=== PATIENT | female | born 1990 | race Caucasian/White ===

== ENCOUNTER → 2018-03-19 10:56 | Outpatient (CLI) | payer BC, SELFPAY ==
[2018-03-19 12:46] LABS: hCG Titer Quant., Serum 242 mIU/mL (<9 non-preg)
== END ==
PROVIDERS: Visit Provider Obstetrics & Gynecology
DX: N91.2 Amenorrhea, unspecified (principal)
CPT/HCPCS: 36415; 84702

== ENCOUNTER → 2018-03-24 11:06 | Outpatient (CLI) | payer BC, SELFPAY ==
[2018-03-24 12:49] LABS: hCG Titer Quant., Serum 1702 mIU/mL (<9 non-preg)
[2018-03-24 12:51] LABS: Free T3 3.3 pg/mL (2.18-3.98); T4 Free Direct 0.95 ng/dL (0.76-1.46); Thyroid Stim Hormone (TSH) 0.53 uIU/mL (0.358-3.74)
== END ==
PROVIDERS: Obstetrics & Gynecology; Visit Provider Nurse Practitioner Adult Health
DX: E03.8 Other specified hypothyroidism (principal); E04.1 Nontoxic single thyroid nodule; N91.2 Amenorrhea, unspecified
CPT/HCPCS: 36415; 84439; 84443; 84481; 84702

== ENCOUNTER → 2018-04-14 16:20 | Outpatient (CLI) | payer BC, SELFPAY ==
[2018-04-18 15:51] LABS: HPV Reflexed? NOT INDICATED
== END ==
PROVIDERS: Visit Provider Obstetrics & Gynecology
DX: Z34.90 Encounter for supervision of normal pregnancy, unspecified, unspecified trimester (principal); Z12.4 Encounter for screening for malignant neoplasm of cervix
CPT/HCPCS: 88175; G0145

== ENCOUNTER → 2018-04-14 18:06 | Outpatient (CLI) | payer BC, SELFPAY ==
[2018-04-14 23:53] LABS: Chlamydia Trachomatis by PCR Negative (Negative); Neisserai gonorrhoeae by PCR Negative (Negative); Probe Check PASS; Sample Adequacy Control PASS; Specimen Processing Control PASS
== END ==
PROVIDERS: Visit Provider Obstetrics & Gynecology
DX: Z34.90 Encounter for supervision of normal pregnancy, unspecified, unspecified trimester (principal); Z12.4 Encounter for screening for malignant neoplasm of cervix
CPT/HCPCS: 87086; 87088; 87491; 87591; 88175; G0145

== ENCOUNTER → 2018-04-29 09:28 | Outpatient (CLI) | payer BC, SELFPAY ==
[2018-04-29 10:15] LABS: Basophil# 0.01 X10^3/uL; Basophil% 0.1 % (0-1); Eosinophil# 0.17 X10^3/uL; Eosinophils% 2.3 % (0-5); Hematocrit 37.9 % (37-47); Hemoglobin 13.1 g/dl (12.0-15.0); Lymphocyte % 26.7 % (19-41); Mean Corp Hgb Conc 34.6 g/gl (32-36); Mean Corpuscular Hgb 30.6 pg (27.0-32.0); Mean Corpuscular Volume 88.6 fL (81-99); Mean Platelet Vol. 9.3 fl (6.2-12.0); Monocyte# 0.25 X10^3/uL; Monocyte% 3.3 % (0-10); Neutrophil # 5.03 X10^3/uL (2.7-7.7); Neutrophil % 67.3 % (47-70); Platelet Count 247 K/mm3 (150-450); RBC Distribution Width CV 13.2 % (11.6-14.6); RBC Distribution Width SD 42.1 fl (35.1-43.9); Red Blood Count 4.28 M/mm3 (4.2-5.4); White Blood Count 7.5 K/mm3 (4.4-11.0)
[2018-04-29 10:16] LABS: POSITIVE COUNT NO; POSITIVE DIFFERENTIAL NO; POSITIVE MORPHOLOGY NO
[2018-04-30 08:16] LABS: HEPATITIS B SURFACE AG Negative (Negative)
[2018-04-30 09:39] LABS: HIV - WCH Non-Reactive (Nonreactive); Rubella IgG 35.4 IU/mL
[2018-05-02 00:18] LABS: Rapid Plasmin Reagin (RPR) NONREACTIVE (NONREACTIVE)
== END ==
PROVIDERS: Visit Provider Obstetrics & Gynecology
DX: Z34.90 Encounter for supervision of normal pregnancy, unspecified, unspecified trimester (principal)
CPT/HCPCS: 36415; 85025; 86592; 86703; 86762; 86850; 86900; 87340

== ENCOUNTER → 2018-08-04 16:52 | Outpatient (CLI) | payer BC, SELFPAY ==
[2018-08-04 17:41] LABS: T4 Free Direct 0.81 ng/dL (0.76-1.46); Thyroid Stim Hormone (TSH) 0.86 uIU/mL (0.358-3.74)
== END ==
PROVIDERS: Referring Provider Obstetrics & Gynecology; Visit Provider Obstetrics & Gynecology
DX: E03.9 Hypothyroidism, unspecified (principal)
CPT/HCPCS: 36415; 84439; 84443

== ENCOUNTER → 2018-09-01 16:00 | Outpatient (CLI) | payer BC, SELFPAY ==
[2018-09-01 16:27] LABS: Absolute Lymphocyte Count 2.03 X10^3/ul (0.83-4.51); Absolute Neutrophil Count 7.3 X10^3/uL (2.0-7.7); Basophil# 0.01 X10^3/uL; Basophil% 0.1 % (0-1); Eosinophil# 0.11 X10^3/uL; Eosinophils% 1.1 % (0-5); Hemoglobin 11.5 g/dl (12.0-15.0); Lymphocyte # 2.03 X10^3/ul (4.0); Lymphocyte % 20.2 % (19-41); Mean Corp Hgb Conc 32.9 g/gl (32-36); Mean Corpuscular Hgb 30.3 pg (27.0-32.0); Mean Corpuscular Volume 92.3 fL (81-99); Mean Platelet Vol. 9.3 fl (6.2-12.0); Neutrophil # 7.33 X10^3/uL (2.7-7.7); Neutrophil % 73.1 % (47-70); Platelet Count 201 K/mm3 (150-450); RBC Distribution Width CV 14.3 % (11.6-14.6); RBC Distribution Width SD 46.7 fl (35.1-43.9); Red Blood Count 3.79 M/mm3 (4.2-5.4)
[2018-09-01 16:29] LABS: POSITIVE COUNT NO; POSITIVE DIFFERENTIAL NO; POSITIVE MORPHOLOGY NO
[2018-09-01 16:55] LABS: Glucose Challenge Gest 1H 50g 108 mg/dL (70-140)
== END ==
PROVIDERS: Referring Provider Obstetrics & Gynecology; Visit Provider Obstetrics & Gynecology
DX: Z34.90 Encounter for supervision of normal pregnancy, unspecified, unspecified trimester (principal)
CPT/HCPCS: 36415; 82950; 85025

== ENCOUNTER → 2018-09-11 14:09 | Outpatient (CLI) | payer BC, SELFPAY ==
[2018-09-11 12:35] VITALS: BMI 39.4
[2018-09-11 16:02] LABS: Mucous, Urine 0 SEEN /hpf (<or=2+); Red Blood Cells-Urine 0 SEEN /hpf (0-5)
[2018-09-11 16:53] LABS: Color, Urine Yellow (Yellow); Glucose, Dipstick Normal (Normal); Ketone-Dipstick Negative (Negative); Leukocyte Esterase-Dipstick 25 /ul (Negative); Nitrite-Dipstick Negative (Negative); Occult Blood-Urine Negative /ul (Negative); Protein-Dipstick Negative (Negative); Urine Bilirubin Dipstick Negative (Negative); Urine Clarity Sl. Cloudy (Clear); Urine Urobilinogen Normal (Normal)
[2018-09-11 17:01] LABS: Bacteria 1+ /hpf (None Seen); Squamous Epithelial Cells - UA 0-5 SEEN /hpf (5-10); White Blood Cells 0-5 SEEN /hpf (0-5)
--- OUTSIDE RECORDS SUMMARY | 2018-10-28 11:19 | XMS RPT_ITS ---
:1990 Author Organization [place] Support Name Relationship Address Phone [facility] Unavailable [address] + [place] [address] CHANA BOLAÑOS Unavailable [address] + [place] [address] [facility] Unavailable [address] + [place] [address] CHANA BOLAÑOS Unavailable [address] + [facility] [address] [facility] Unavailable [address] + [place] [address] MAMI EDSAVITA Unavailable [address] + [place] [address] [facility] Unavailable [address] + [place] [address] MAMI EDWARD Unavailable [address] + [place] [address] [facility] Unavailable [address] + [place] [address] MAMI EDSAVITA Unavailable [address] + [place] [address] [facility] Unavailable [address] + [place] [address] MAMI EDSAVITA Unavailable [address] + [place] [address] [facility] Unavailable [address] + [place] [address] CHANA BOLAÑOS Unavailable [address] + [place] [address] [facility] Unavailable [address] + [place] [address] MAMI EDWARD Unavailable [address] + [place] [address] [facility] Unavailable [address] + [place] [address] MAMI EDWARD Unavailable [address] + [place] [address] [facility] Unavailable [address] + [place] [address] MAMI EDSAVITA Unavailable [address] + [place] [address] [facility] Unavailable [address] + [place] [address] CHANA BOLAÑOS Unavailable [address] + [place] [address] [facility] Unavailable [address] + [place] [address] MAMI, EDSAVITA Unavailable [address] + [place] [address] [facility] Unavailable [address] + [place] [address] CHANA BOLAÑOS Unavailable [address] + [place] [address] [facility] Unavailable [address] + [place] [address] MAMI EDSAVITA Unavailable [address] + [place] [address] YADIRA BOLAÑOS Unavailable [address] + [place] [address] MAMI EDSAVITA Unavailable [address] + [place] [address] [facility] Unavailable [address] + [place] [address] MAMI EDSAVITA Unavailable [address] + [place] [address] YADIRA BOLAÑOS Unavailable [address] + [place] [address] CHANA BOLAÑOS Unavailable [address] + [place] [address] [facility] Unavailable [address] + [place] [address] MAMI EDSAVITA Unavailable [address] + [place] [address] [facility] Unavailable [address] + [place] [address] CHANA BOLAÑOS Unavailable [address] + [place] [address] [facility] Unavailable [address] + [place] [address] CHANA BOLAÑOS Unavailable [address] + [place] [address] [facility] Unavailable [address] + [place] [address] MAMI EDSAVITA Unavailable [address] + [place] [address] [facility] Unavailable [address] + [place] [address] CHANA BOLAÑOS Unavailable [address] + [place] [address] [facility] Unavailable [address] + [place] [address] MAMI EDSAVITA Unavailable [address] + [place] [address] [facility] Unavailable [address] + [place] [address] MAMI EDSAVITA Unavailable [address] + [place] [address] [facility] Unavailable [address] + [place] [address] MAMI EDSAVITA Unavailable [address] + [place] [address] [facility] Unavailable [address] + [place] [address] CHANA BOLAÑOS Unavailable [address] + [place] [address] Care Team Providers Name Role Phone Junior Davis Attending Unavailable Primay Care Physicia, No Referring Unavailable Junior Davis Attending Unavailable Junior Davis Referring Unavailable Primay Care Physicia, No Primary Care Unavailable Adan Rolle Attending Unavailable Primay Care Physicia, No Primary Care Unavailable EnsenadaBillie Attending Unavailable Primay Care Physicia, No Referring Unavailable Dossie, Janett Simon Attending Unavailable Primay Care Physicia, No Referring Unavailable Dossie, Janett Simon Attending Unavailable Primay Care Physicia, No Referring Unavailable Marcanthony, Mary Attending Unavailable Primay Care Physicia, No Referring Unavailable Dossie, Janett Simon Attending Unavailable Primay Care Physicia, No Referring Unavailable MarcanthonyMary Attending Unavailable Primay Care Physicia, No Primary Care Unavailable Ruth Dejesus Attending Unavailable Primay Care Physicia, No Primary Care Unavailable Dejesus Ruth Referring Unavailable MarcanthonyMary Consulting Unavailable Marcanthony, Mary Attending Unavailable Primay Care Physicia, No Referring Unavailable Primay Care Physicia, No Primary Care Unavailable MarcanthonyMary Attending Unavailable Primay Care Physicia, No Primary Care Unavailable Marcanthony, Mary Attending Unavailable Primay Care Physicia, No Primary Care Unavailable MarcanthonyMary Referring Unavailable EnsenadaBillie Attending Unavailable Primay Care Physicia, No Referring Unavailable Primay Care Physicia, No Primary Care Unavailable Marcanthony, Mary Attending Unavailable Marcanthony, Mary Referring Unavailable Primay Care Physicia, No Primary Care Unavailable Marcanthony, Mary Attending Unavailable Primay Care Physicia, No Referring Unavailable Primay Care Physicia, No Primary Care Unavailable Marcanthony, Mary Attending Unavailable Primay Care Physicia, No Referring Unavailable Primay Care Physicia, No Primary Care Unavailable Marcanthony, Mary Attending Unavailable Primay Care Physicia, No Referring Unavailable Marcanthony, Mary Attending Unavailable Primay Care Physicia, No Referring Unavailable Marcanthony, Mary Attending Unavailable Marcanthony, Mary Referring Unavailable Primay Care Physicia, No Primary Care Unavailable Marcanthony, Mary Attending Unavailable Primay Care Physicia, No Referring Unavailable Marcanthony, Mary Attending Unavailable Marcanthony, Mary Attending Unavailable Marcanthony, Mary Referring Unavailable Primay Care Physicia, No Primary Care Unavailable Dossie, Janett DOmarCOmar Attending Unavailable Primay Care Physicia, No Referring Unavailable ANTONIO JIMENEZ Attending Unavailable MARY BLACKBURN Referring Unavailable NO PRIMARY CARE, Primary Care Unavailable YAMILETH PARIKH Attending Unavailable ALEXEY, MARY E Referring Unavailable NO PRIMARY CARE, Primary Care Unavailable GISELLA, WW-WENDY L Attending Unavailable GISELLA, WW-WENDY L Attending Unavailable KAPUT, SARAH M Consulting Unavailable KAPUT, SARAH Driver Attending Unavailable PROBLEMS PROBLEMS DATE TYPE CONDITION / CODE ATTENDING STATUS SOURCE 10/21/2018 Unknown M99.03 - Segmental Dossie, Janett Active [facility] dysfunction of [facility] lumbar region / Repository M99.03(ICD-10) 10/21/2018 Unknown M99.02 - Segmental Dossie, Janett Active [facility] of [facility] thoracic region / Repository M99.02(ICD-10) 10/21/2018 Unknown M99.04 - Segmental Dossie, Janett Active [facility] dysfunction of Hospital sacral region / Repository M99.04(ICD-10) 10/21/2018 Unknown M99.05 - Segmental Dossie, Janett Active [facility] dysfunction of [facility] pelvic region / Repository M99.05(ICD-10) 10/13/2018 Unknown Z34.83 - Encounter Marcanthony, Active [facility] for supervision of [facility] other normal Hospital , third Repository trimester / Z34.83(ICD-10) 10/13/2018 Unknown O09.899 - Marcanthony, Active [facility] Supervision of [facility] other high risk Hospital pregnancies, Repository unspecified trimester / O09.899(ICD-10) 10/13/2018 Unknown E03.9 - Marcanthony, Active [facility] Hypothyroidism, [facility] unspecified / Hospital E03.9(ICD-10) Repository 10/13/2018 Unknown O99.343 - Other Marcanthony, Active [facility] mental disorders [facility] complicating Hospital , third Repository trimester / O99.343(ICD-10) 10/13/2018 Unknown F32.9 - Major Marcanthony, Active [facility] depressive [facility] disorder, single Hospital episode, Repository unspecified / F32.9(ICD-10) 10/13/2018 Unknown Z3A.34 - 34 weeks Marcanthony, Active [facility] gestation of [facility] / Hospital Z3A.34(ICD-10) Repository 09/29/2018 Unknown Z3A.28 - 28 weeks Billie Canales Active [facility] gestation of [facility] / Hospital Z3A.28(ICD-10) Repository 09/11/2018 Unknown R30.0 - Dysuria / GarryJunior mercer Active [facility] R30.0(ICD-10) [facility] Repository 09/11/2018 Unknown R52 - Pain, Junior Davis Active [facility] unspecified / Community R52(ICD-10) Hospital Repository 09/01/2018 Unknown Z34.90 - Encounter Marcanthony, Active [facility] for supervision of [facility] normal , Hospital unspecified, Repository unspecified trimester / Z34.90(ICD-10) 09/01/2018 Unknown Z23 - Encounter Marcanthony, Active [facility] for immunization / [facility] Z23(ICD-10) Hospital Repository 08/04/2018 Unknown Z34.82 - Encounter Marcanthony, Active [facility] for supervision of [facility] other normal Hospital , second Repository trimester / Z34.82(ICD-10) 08/04/2018 Unknown Z3A.24 - 24 weeks Marcanthony, Active [facility] gestation of [facility] / Hospital Z3A.24(ICD-10) Repository 07/07/2018 Unknown Z3A.16 - 16 weeks Marcanthony, Active [facility] gestation of [facility] / Hospital Z3A.16(ICD-10) Repository 04/16/2018 Unknown Z12.4 - Encounter Marcanthony, Active [facility] for screening for [facility] malignant neoplasm Hospital of cervix / Repository Z12.4(ICD-10) 04/15/2018 Unknown Z34.00 - Encounter Marcanthony, Active [facility] for supervision of [facility] normal first Hospital , Repository unspecified trimester / Z34.00(ICD-10) 02/06/2018 Admitting Unknown / GISELLA, Active [facility] diagnosis UNK(Unknown) WW-WENDY [facility] Repository PROCEDURES PROCEDURES No Procedure Records FoundRESULTS RESULTS CHIROPRACTIC REPORT Observed: 10/22/2018 Status: F Source: [place] 11:45 AM [facility] REPOSITORY [facility] [address] [place] [address] OFFICE VISIT Date of Service: 10/22/18 MR#: [id number] Acct: [id number] Name: YADIRA BOLAÑOS Rep #: [id number] : 1990 Provider: Janett Brenner D.C. Age/Sex: 28/F [place] [facility] [place] Signed Intake Vital Signs10/22/18 Body Mass Index (BMI) 39.4 10/22/18 Height 5 ft 4 in 10/22/18 Weight: 230 lb 10/22/18 Body Mass Index (BMI) 39.4 Intake Visit Reasons: LBP and breech Chief Complaint: est ob Is patient in pain?: Yes Allergies No Known Allergies Allergy (Verified 10/13/18 15:34) Medications Vit No.130/Iron/Folic [ Vitamins] 1 tab PO DAILY 09/29/15 [History Confirmed 10/13/18] levothyroxine 25 mcg tablet 50 mcg PO DAILY tab 09/04/17 [History Confirmed 10/13/18] Thyroid,Pork [[place] Thyroid] 30 mg PO DAILY 09/07/17 [History Confirmed 10/13/18] sertraline 100 mg tablet 150 mg PO QDAY #135 tab 09/01/18 [Rx Confirmed 10/13/18] PFSH Medical History Back pain (Acute) Chest pain (Acute) Fatigue (Acute) Hypothyroid (Acute) Incontinence (Acute) Post depression (Acute) Severe headache (Acute) Family History Grandfather Diabetes Father Hypertension Social History number of children: 2 current occupational status: employed current occupation: [employer] Smoking Status: Never smoker alcohol intake: never substance use type: does not use caffeine: Yes Type: tea, coffee what type of physical activity do you participate in: none seatbelt use: always do you feel safe at home: Yes additional social history: Ed-Ayala HPI LBP and breech: Chief Complaint: Mid back pain and breech Visit Number: 5 Details: YADIRA BOLAÑOS is a 28 year old F who presents with no mid back pain, she is currently 36 weeks . Yadira states that after her last treatment she has not been experiencing any mid back pain. She also feels as if baby is lower, and her posture has changed. Today Yadira states that she has no pain, although she feels baby has moved. Yadira denies any numbness, tingling, or radiculopathy. Location: mid back and breech Duration: intermittent Aggravating or associated factors: lifting Relieving factors: chiro Pain Quality: aching, dull Exam Musc General: Yes normal posture (), normal gait, joint tenderness (T6,T7,T8) and decreased ROM Thoracic/Lumbar Spine: thoracic and lumbar spine normal to inspection, straight leg raise negative bilaterally, Lasegue's sign negative, pain with thoraco- lumbar ROM, paraspinal tenderness (slightly improved), thoraco-lumbar ROM limited, thoraco-lumbar spasm Sacroiliac joints: on the right (motion restriction) Sacrum: tenderness (decreased motion restriction) on the left Office Procedures Chiropractic Treatments Procedures Manipulation: 3-4 regions (T6, L4, L sacrum, RIL) Assessment AND Plan Problems 1. Segmental and somatic dysfunction of pelvic region M99.05 2. Segmental and somatic dysfunction of sacral region M99.04 3. Segmental and somatic dysfunction of lumbar region M99.03 4. Segmental and somatic dysfunction of thoracic region M99.02 Plan Patient is showing improvement, continue care. Orders Orders: Plan Detail Goals Decrease pain and spasm Improve ROM Level pelvis Follow Up 2x/wk Coding Level of Care Code No Charge Diagnoses Segmental and somatic dysfunction of pelvic region M99.05 Segmental and somatic dysfunction of sacral region M99.04 Segmental and somatic dysfunction of lumbar region M99.03 Segmental and somatic dysfunction of thoracic region M99.02 Additional Codes Procedures - Manipulation: 3-4 regions (18837) 10/22/18 4135 <Electronically signed by Jnaett Brenner D.C.> Date Janett Sandhu Signature: Date (if applicable) CC: CHIROPRACTIC REPORT Observed: 10/20/2018 Status: F Source: [place] 10:23 AM [facility] REPOSITORY [facility] [address] [place] [address] OFFICE VISIT Date of Service: 10/20/18 MR#: [id number] Acct: [id number] Name: YADIRA BOLAÑOS Rep #: [id number] : 1990 Provider: Janett Brenner D.C. Age/Sex: 28/F [place] [facility]: Signed Intake Vital Signs10/20/18 Height 5 ft 4 in 10/20/18 Weight: 230 lb 10/20/18 Body Mass Index (BMI) 39.4 Intake Visit Reasons: back pain Chief Complaint: mid back and breach baby Is patient in pain?: Yes Allergies No Known Allergies Allergy (Verified 10/13/18 15:34) Medications Vit No.130/Iron/Folic [ Vitamins] 1 tab PO DAILY 09/29/15 [History Confirmed 10/13/18] levothyroxine 25 mcg tablet 50 mcg PO DAILY tab 09/04/17 [History Confirmed 10/13/18] Thyroid,Pork [[place] Thyroid] 30 mg PO DAILY 09/07/17 [History Confirmed 10/13/18] sertraline 100 mg tablet 150 mg PO QDAY #135 tab 09/01/18 [Rx Confirmed 10/13/18] [facility] Medical History Back pain (Acute) Chest pain (Acute) Fatigue (Acute) Hypothyroid (Acute) Incontinence (Acute) Post depression (Acute) Severe headache (Acute) Family History Grandfather Diabetes Father Hypertension Social History number of children: 2 current occupational status: employed current occupation: [employer] Smoking Status: Never smoker alcohol intake: never substance use type: does not use caffeine: Yes Type: tea, coffee what type of physical activity do you participate in: none seatbelt use: always do you feel safe at home: Yes additional social history: Ed-Ayala HPI back pain : Chief Complaint: mid back pain and breech baby Visit Number: 4 Details: YADIRA BOLAÑOS is a 28 year old F who presents with decreased mid back pain. She states now baby is breech, she is currently 35 weeks . Yadira states that after each treatment her mid back pain is relieved, although by the end of the week the pain does increase, leaving her with a tight and sore ache that is localized in the mid back. Today Yadira states that her mid back is a little stiff, although one week ago she was told baby is breech. Location: mid back and breech baby Duration: intermittent Aggravating or associated factors: lifting baby, rotation, and bending Relieving factors: chiro Pain Quality: aching, dull, cramping, sharp Exam Musc General: Yes normal posture (), normal gait, joint tenderness (T6,T7,T8) and decreased ROM Thoracic/Lumbar Spine: thoracic and lumbar spine normal to inspection, straight leg raise negative bilaterally, Lasegue's sign negative, pain with thoraco- lumbar ROM, paraspinal tenderness (slightly improved), thoraco-lumbar ROM limited, thoraco-lumbar spasm Sacroiliac joints: on the right (motion restriction) Sacrum: tenderness (decreased motion restriction) on the left Office Procedures Chiropractic Treatments Procedures Manipulation: 3-4 regions (T7,T8, L sacrum, R pelvis ) Assessment AND Plan Problems 1. Segmental and somatic dysfunction of thoracic region M99.02 2. Segmental and somatic dysfunction of sacral region M99.04 3. Segmental and somatic dysfunction of pelvic region M99.05 Plan Began Schuler technique and evaluated lumbopelvic area. Recommend acute treatment at 2x/wk/2wks. Follow up with OB for eval/US in 2 weeks. Orders Orders: Plan Detail Goals Decrease pain and spasm Improve ROM Level pelvis Follow Up 2x/wk/2wks Coding Level of Care Code Off vis,est,level 1 Diagnoses Segmental and somatic dysfunction of thoracic region M99.02 Segmental and somatic dysfunction of sacral region M99.04 Segmental and somatic dysfunction of pelvic region M99.05 Additional Codes Procedures - Manipulation: 3-4 regions (57726) 10/20/18 1023 <Electronically signed by Janett Brenner D.C.> Date Janett Brenner D.C. Cosigner Signature: Date (if applicable) CC: TOP TAPER MACHINE OFFICE VISIT Observed: 10/13/2018 Status: F Source: [facility] RE[facility] 3:59 PM [facility] REPOSITORY [facility] 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 Is patient in pain?: No Allergies No Known Allergies Allergy (Verified 10/13/18 15:34) Medications Vit No.130/Iron/Folic [ Vitamins] 1 tab PO DAILY 09/29/15 [History Confirmed 10/13/18] levothyroxine 25 mcg tablet 50 mcg PO DAILY tab 09/04/17 [History Confirmed 10/13/18] Thyroid,Pork [[place] Thyroid] 30 mg PO DAILY 09/07/17 [History Confirmed 10/13/18] sertraline 100 mg tablet 150 mg PO QDAY #135 tab 09/01/18 [Rx Confirmed 10/13/18] Last Menstral Period: 12/08/16 Zika: Zika virus screening: Negative : No PFSH PFSH Medical History Back pain (Acute) Chest pain (Acute) Fatigue (Acute) Hypothyroid (Acute) Incontinence (Acute) Post depression (Acute) Severe headache (Acute) Family History Grandfather Diabetes Father Hypertension Social History number of children: 2 current occupational status: employed current occupation: [employer] Smoking Status: Never smoker alcohol intake: never substance use type: does not use caffeine: Yes Type: tea, coffee what type of physical activity do you participate in: none seatbelt use: always do you feel safe at home: Yes additional social history: Ed-Ayala Pregancy History 3 Elective abortions Hx Para 2 Spontaneous abortions Past Pregnancies Del. DateName GA/Weeks Outcome Route Bth WeighInfant GeLabor LgtAnesthesiDel LocatProvider FOB t n h a n HPI 34 WEEK OB: Details: YADIRA BOLAÑOS is a 28 year old who presents for routine OB visit. OB Visit NAV Calculator Estimated Delivery Date 11/24/18 Based on Ultrasound Date 04/14/18 Current WG 34w 0d Number 1 Expected Delivery Route/Plan Specific Issue/Plans flu vaccine: given tdap vaccine: given rhogam: na LARC form signed: [] labor support person: [] pain management: [] cut cord/dad catch: [] : [] PP control planned: [] discussed possible routes of delivery and associated risks: [] special requests: [] Initial Weight: 213 lb Date Weight BP Urine PrFHR FuHt Pres MoCTX DilationFetal StVisit NoProviderComments E ot v te GA G Effac lucose ed Visit Notes Visit Date: 10/13/18 no vb lof good fm nor egualr ctx, seeing psychiatrist to have better control of mood Mary Blackburn MD on 10/13/18 Visit Date: 09/29/18 No VB, LOF. Depression still problematice Billie Canales NP-C on 09/29/18 Visit Date: 09/01/18 no vb lof good fm no regualr ctx some increased anxiety. will increase zoloft and starting back with counseling Mary Blackburn MD on 09/01/18 Visit Date: 08/04/18 co mid back pain. no vb lof good fm n oregular ctx Mary Blackburn MD on 08/04/18 Visit Date: 07/07/18 no vb lof cramping Mary Blackburn MD on 07/07/18 Visit Date: 06/09/18 no vb cramping nausea resolved, some stress at work- overall mood stable. encouraged counseling Mary Blackburn MD on 06/09/18 Visit Date: 05/12/18 no vb cramping nasea improved Mary Blackburn MD on 05/12/18 Visit Date: 04/29/18 Confirmed FHT with brief US. Nausea problematic. No VB, LOF. EDITH Sewell on 04/29/18 ACOG First Trimester First Trimester: Desire for , Alcohol, Tobacco Cessation, Illicit/Recreational Drug/Substance Use, Intimate Partner Violence, Barriers to care, Unstable Housing, Communication Barriers, Environmental/Work Hazards, Anticipated Course of Care, Toxoplasmosis Precations, Use of Any medications, Sexual activity, Exercise, Dental Care, Sauna/Hot tub use, Seat Belt use, Childbirth classes/Hospital facilities, , Travel, Indications for US and Screening for Aneuploidy Diagnostics Diagnostics Labs Hct 36.6 % (37-47) L 09/13/18 Hgb 12.5 g/dl (12.0-15.0) 09/13/18 Glucose 1 Hr 50 gm 108 mg/dL (70-140) 09/01/18 Rhogam given: No 09/14/18 Details: HIV: Urine Culture: Sequential Screen: NIPT Screen: Assessment AND Plan Problems 1. Depression affecting in third trimester, antepartum O99.343; F32.9 h/o severe PPD, zoloft, counseled regarding risks of medication, counseling encouraged and patient planning to follow up again, has done PHP in past 2. Acquired hypothyroidism E03.9 labs q trimester 3. 34 weeks gestation of Z3A.34 genetic, carrier, and NTD screening declined. anatomy screen normal- fu views of spine were normal. 4. Short interval between pregnancies affecting , antepartum O09.899 5. Encounter for supervision of other normal in third trimester Z34.83 PRR NAV 11/24/18 gender surprise PC PatriciaBarry curiel Ed Plan ACOG trimester education reviewed and updated. see problem list details for updated plan management information and see below for orders placed at this visit. GA appropriate handout given. Orders Orders: Plan Detail Goals Decrease pain and spasm Improve ROM Coding Level of Care Code OB Routine Diagnoses Depression affecting in third trimester, antepartum O99.343; F32.9 Acquired hypothyroidism E03.9 Hypothyroidism type: acquired 34 weeks gestation of Z3A.34 Weeks of gestation: 34 weeks Short interval between pregnancies affecting , antepartum O09.899 Encounter for supervision of other normal in third trimester Z34.83 Normal : other normal Trimester: third trimester 10/13/18 1559 <Electronically signed by Mary Blackburn MD> Date Mary Blackburn MD Cosign Signature: Date (if applicable) CC: CHIROPRACTIC REPORT Observed: 10/13/2018 Status: F Source: [place] 3:29 PM [facility] REPOSITORY [facility] [address] [place] [address] OFFICE VISIT Date of Service: 10/13/18 MR#: [id number] Acct: [id number] Name: YADIRA BOLAÑOS Rep #: [id number] : 1990 Provider: Janett Brenner D.C. Age/Sex: 28/F [place] [facility] [place] Signed Intake Vital Signs10/13/18 Body Mass Index (BMI) 38.9 10/13/18 Height 5 ft 4 in 10/13/18 Weight: 231 lb 10/13/18 Body Mass Index (BMI) 39.6 Intake Visit Reasons: back johann n Chief Complaint: R mid back pain Is patient in pain?: Yes Allergies No Known Allergies Allergy (Verified 09/29/18 08:35) Medications Vit No.130/Iron/Folic [ Vitamins] 1 tab PO DAILY 09/29/15 [History Confirmed 09/29/18] levothyroxine 25 mcg tablet 50 mcg PO DAILY tab 09/04/17 [History Confirmed 09/29/18] Thyroid,Pork [[place] Thyroid] 30 mg PO DAILY 09/07/17 [History Confirmed 09/29/18] sertraline 100 mg tablet 150 mg PO QDAY #135 tab 09/01/18 [Rx Confirmed 09/29/18] [facility] Medical History Back pain (Acute) Chest pain (Acute) Fatigue (Acute) Hypothyroid (Acute) Incontinence (Acute) Post depression (Acute) Severe headache (Acute) Family History Grandfather Diabetes Father Hypertension Social History number of children: 2 current occupational status: employed current occupation: [employer] Smoking Status: Never smoker alcohol intake: never substance use type: does not use caffeine: Yes Type: tea, coffee what type of physical activity do you participate in: none seatbelt use: always do you feel safe at home: Yes additional social history: Ed-Ayala HPI back johann n: Chief Complaint: R sided mid back pain Visit Number: 2 Details: YADIRA BOLAÑOS is a 28 year old F who is currently 34 weeks , and presents with decreased R sided mid back pain. She states that after her adjustment her pain was decreased for a few days, although later returned. Today Yadira rates her pain a 3/10 and describes it as a deep and sore ache that is localized to the R mid back. Rotation, leaning, and lifting causes increased pain. Yadira denies any numbness, tingling, or radiculopathy. Location: R mid back pain Duration: intermittent Aggravating or associated factors: rotation, lifting, and twisting Relieving factors: chiro Pain Quality: aching, dull, cramping Exam Musc General: Yes normal posture (), normal gait, joint tenderness (T6,T7,T8) and decreased ROM Thoracic/Lumbar Spine: thoracic and lumbar spine normal to inspection, straight leg raise negative bilaterally, Lasegue's sign negative, pain with thoraco- lumbar ROM, paraspinal tenderness (slightly improved) on the right in the mid thoracic and in the lower thoracic, thoraco-lumbar ROM limited, thoraco-lumbar spasm Office Procedures Chiropractic Treatments Procedures Manipulation: 1-2 regions (T6,T7,T8) Assessment AND Plan 1. Segmental and somatic dysfunction of thoracic region M99.02 Orders Orders: Plan Detail Other Orders Orders: Additional Comments Continue care. Goals Decrease pain and spasm Improve ROM Follow Up 2 Weeks Coding Level of Care Code No Charge Diagnoses Segmental and somatic dysfunction of thoracic region M99.02 Additional Codes Procedures - Manipulation: 1-2 regions (40224) 10/13/18 1529 <Electronically signed by Janett Brenner D.C.> Date Janett Sandhu Signature: Date (if applicable) CC: CHIROPRACTIC REPORT Observed: 10/07/2018 Status: F Source: [place] 10:05 AM [facility] [address] [place] [address] OFFICE VISIT Date of Service: 10/06/18 MR#: [id number] Acct: [id number] Name: YADIRA BOLAÑOS Rep #: [id number] : 1990 Provider: Janett Brenner D.C. Age/Sex: 28/F [place] [facility] [place] Signed Intake Vital Signs10/06/18 Height 5 ft 4 in 10/06/18 Weight: 230 lb 10/06/18 Body Mass Index (BMI) 39.4 Intake Visit Reasons: back pain Chief Complaint: R sided mid back pain Is patient in pain?: Yes Allergies No Known Allergies Allergy (Verified 09/29/18 08:35) Medications Vit No.130/Iron/Folic [ Vitamins] 1 tab PO DAILY 09/29/15 [History Confirmed 09/29/18] levothyroxine 25 mcg tablet 50 mcg PO DAILY tab 09/04/17 [History Confirmed 09/29/18] Thyroid,Pork [[place] Thyroid] 30 mg PO DAILY 09/07/17 [History Confirmed 09/29/18] sertraline 100 mg tablet 150 mg PO QDAY #135 tab 09/01/18 [Rx Confirmed 09/29/18] Patient : Yes [facility] Medical History Back pain (Acute) Chest pain (Acute) Fatigue (Acute) Hypothyroid (Acute) Incontinence (Acute) Post depression (Acute) Severe headache (Acute) Family History Grandfather Diabetes Father Hypertension Social History number of children: 2 current occupational status: employed current occupation: [employer] Smoking Status: Never smoker alcohol intake: never substance use type: does not use caffeine: Yes Type: tea, coffee what type of physical activity do you participate in: none seatbelt use: always do you feel safe at home: Yes additional social history: Ed-Ayala HPI back pain : Chief Complaint: R sided mid back pain Visit Number: 1 Referral source: Details: YADIRA BOLAÑOS is a 28 year old F who presents with R sided mid back pain, she is currently 33 weeks . 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 The pain was initially described as a sharp ache that began in the R mid back, and would radiate down the back. At times with sudden quick movements the pain will radiate into the front of the rib cage. Today Yadira rates her pain a 3/10 and describes it as a dull ache. Rotation, bending over, and lifting causes the pain to increase, becoming sharp shooting. Yadira denies any numbness, tingling, or radiculopathy. Onset: 09/15/18 Location: R mid back pain Duration: intermittent Aggravating or associated factors: bending, lifting, twisting Relieving factors: heat and sitting Pain Quality: aching, dull, sharp, radiating Exam Musc General: Yes normal posture (), normal gait, joint tenderness (T6,T7,T8) and decreased ROM Thoracic/Lumbar Spine: thoracic and lumbar spine normal to inspection, straight leg raise negative bilaterally, Lasegue's sign negative, pain with thoraco- lumbar ROM with rotation to the right, paraspinal tenderness on the right in the mid thoracic and in the lower thoracic, thoraco-lumbar ROM limited with rotation to the right, thoraco- lumbar spasm on the right greater than left (rhomboid) Neuro General: alert, awake, oriented x3, gait normal, normal light touch, pain and propioception, no focal motor deficits Ortho Test CERVICAL THORACIC Kemps: Positive, Rig Schepelmanns pain: Negative Pardo: Negative LUMBAR Office Procedures Chiropractic Treatments Procedures Manipulation: 1-2 regions (T6,T7,T8) Assessment AND Plan 1. Segmental and somatic dysfunction of thoracic region M99.02 Orders Orders: Plan Detail Other Orders Orders: Additional Comments Monitor patient response to treatment. Follow up in 1 week. Goals Decrease pain and spasm Improve ROM Follow Up 1 Week Coding Level of Care Code Off vis,new,level 3 Diagnoses Segmental and somatic dysfunction of thoracic region M99.02 Additional Codes Procedures - Manipulation: 1-2 regions (16035) 10/07/18 1005 <Electronically signed by Janett Brenner D.C.> Date Janett Brenner D.C. Cosigner Signature: Date (if applicable) CC: TOP TAPER MACHINE OFFICE VISIT Observed: 09/29/2018 Status: F Source: [place] REPORT 8:58 AM [facility] REPOSITORY [facility] [place] [address] [place] [address] OFFICE VISIT Date of Service: 09/29/18 MR#: [id number] Acct: [id number] Name: YADIRA BOLAÑOS Rep #: [id number] : 1990 Provider: TEODORA Canales Age/Sex: 28/F [place] [facility] [place]: Signed Intake Vital Signs09/29/18 Body Mass Index (BMI) 38.9 09/29/18 Height 5 ft 4 in 09/29/18 Weight: 227 lb 2 oz 09/29/18 Body Mass Index (BMI) 38.9 09/29/18 Blood Pressure 112/78 Intake Visit Reasons: 32 weeks Chief Complaint: Est OB Is patient in pain?: No Allergies No Known Allergies Allergy (Verified 09/29/18 08:35) Medications Vit No.130/Iron/Folic [ Vitamins] 1 tab PO DAILY 09/29/15 [History Confirmed 09/29/18] levothyroxine 25 mcg tablet 50 mcg PO DAILY tab 09/04/17 [History Confirmed 09/29/18] Thyroid,Pork [[place] Thyroid] 30 mg PO DAILY 09/07/17 [History Confirmed 09/29/18] sertraline 100 mg tablet 150 mg PO QDAY #135 tab 09/01/18 [Rx Confirmed 09/29/18] Last Menstral Period: 12/08/16 Zika: Zika virus screening: Negative : No PFSH PFSH Medical History Back pain (Acute) Chest pain (Acute) Fatigue (Acute) Hypothyroid (Acute) Incontinence (Acute) Post depression (Acute) Severe headache (Acute) Family History Grandfather Diabetes Father Hypertension Social History number of children: 2 current occupational status: employed current occupation: [employer] Smoking Status: Never smoker alcohol intake: never substance use type: does not use caffeine: Yes Type: tea, coffee what type of physical activity do you participate in: none seatbelt use: always do you feel safe at home: Yes additional social history: Ed-Ayala Pregancy History 3 Elective abortions Hx Para 2 Spontaneous abortions Past Pregnancies Del. DateName GA/Weeks Outcome Route Bth WeighInfant GeLabor LgtAnesthesiDel LocatProvider FOB t n h a n HPI 32 weeks: Details: YADIRA BOLAÑOS is a 28 year old who presents for routine OB visit. OB Visit NAV Calculator Estimated Delivery Date 11/24/18 Based on Ultrasound Date 04/14/18 Current WG 32w 0d Number 1 Expected Delivery Route/Plan Specific Issue/Plans flu vaccine: given tdap vaccine: given rhogam: na LARC form signed: [] labor support person: [] pain management: [] cut cord/dad catch: [] : [] PP control planned: [] discussed possible routes of delivery and associated risks: [] special requests: [] Initial Weight: 213 lb Date Weight BP Urine PrFHR FuHt Pres MoCTX DilationFetal StVisit NoProviderComments E ot v te GA G Effac lucose ed Visit Notes Visit Date: 09/29/18 No VB, LOF. Depression still problematice Billie Canales NP-C on 09/29/18 Visit Date: 09/01/18 no vb lof good fm no regualr ctx some increased anxiety. will increase zoloft and starting back with counseling Mary Blackburn MD on 09/01/18 Visit Date: 08/04/18 co mid back pain. no vb lof good fm n oregular ctx Mary Blackburn MD on 08/04/18 Visit Date: 07/07/18 no vb lof cramping Mary Blackburn MD on 07/07/18 Visit Date: 06/09/18 no vb cramping nausea resolved, some stress at work- overall mood stable. encouraged counseling Mary Blackburn MD on 06/09/18 Visit Date: 05/12/18 no vb cramping nasea improved Mary Blackburn MD on 05/12/18 Visit Date: 04/29/18 Confirmed FHT with brief US. Nausea problematic. No VB, LOF. MIKE SewellC on 04/29/18 ACOG First Trimester First Trimester: Desire for , Alcohol, Tobacco Cessation, Illicit/Recreational Drug/Substance Use, Intimate Partner Violence, Barriers to care, Unstable Housing, Communication Barriers, Environmental/Work Hazards, Anticipated Course of Care, Toxoplasmosis Precations, Use of Any medications, Sexual activity, Exercise, Dental Care, Sauna/Hot tub use, Seat Belt use, Childbirth classes/Hospital facilities, , Travel, Indications for US and Screening for Aneuploidy Diagnostics Diagnostics Labs Blood Type O POSITIVE 04/29/18 Antibody Screen NEGATIVE 04/29/18 Hct 36.6 % (37-47) L 09/13/18 Hgb 12.5 g/dl (12.0-15.0) 09/13/18 Rubella IgG Antibody 35.4 IU/mL 04/29/18 RPR NONREACTIVE (NONREACTIVE) 04/29/18 Hep Bs Antigen Negative (Negative) 04/29/18 Chlam trachomat DNA PCR Negative (Negative) 04/14/18 N.gonorrhoeae DNA (PCR) Negative (Negative) 04/14/18 Glucose 1 Hr 50 gm 108 mg/dL (70-140) 09/01/18 Rhogam given: No 09/14/18 Details: HIV: Urine Culture: Sequential Screen: NIPT Screen: Results [id number] Office Urine Glucose Negative Last Edit by Sandra Tao on 09/29/18 08:42 Office Urine Protein Negative Last Edit by Sandra Tao on 09/29/18 08:42 Assessment AND Plan Problems 1. Encounter for supervision of other normal in third trimester Z34.83 PRR NAV 11/24/18 Barry Infante Ed 2. 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 anatomy screen normal- fu views of spine were normal. 3. Short interval between pregnancies affecting , antepartum O09.899 4. Acquired hypothyroidism E03.9 labs q trimester 5. Depression affecting in third trimester, antepartum O99.343; F32.9 h/o severe PPD, zoloft, counseled regarding risks of medication, counseling encouraged and patient planning to follow up again, has done PHP in past Plan Orders placed: none She did see counseling center, has hotline number if suicidal ideation occurs. involved and supportive Has scheduled counseling 10/01/18 and psychiatrist in 2 weeks. Reviewed of labor precautions, movement/kick counts ACOG trimester education reviewed and updated See problem list details for updated plan of care Gestational age appropriate handout given RTO: 2 weeks Orders Orders: Coding Level of Care Code OB Routine Diagnoses Encounter for supervision of other normal in third trimester Z34.83 Normal : other normal Trimester: third trimester 28 weeks gestation of Z3A.28 Weeks of gestation: 28 weeks Short interval between pregnancies affecting , antepartum O09.899 Acquired hypothyroidism E03.9 Hypothyroidism type: acquired Depression affecting in third trimester, antepartum O99.343; F32.9 09/29/18 0858 <Electronically signed by Billie Canales VEGETABLE II FARMWORKER-C> Date Billie Canales VEGETABLE II FARMWORKER-C Cosigner Signature: Date (if applicable) CC: URINALYSIS, COMPLETE Collected: 09/13/2018 Status: F Source: [place] 9:20 PM [facility] REPOSITORY Order Comment: How was Urine Obtained? CLEAN CATCH TYPE CODE TESTS RESULT OUT OF REFERENCE UNITS RANGE LAB L400.3000 Yellow COLOR Normal Yellow LAB L400.3050 Clear CLARITY Normal Cloudy LAB L400.3200 Normal mg/dl GLUCOSE, UR Normal Normal LAB L400.3300 Negative mg/dL BILIRUBIN Normal URINE Negative LAB L400.3400 Negative mg/dl KETONE UR High 50 LAB L400.3465 1.002-1.030 SP.GR. Normal DIPSTX 1.010 LAB L400.3550 5.0 - 8.0 pH UR Normal 7.0 LAB L400.3600 Negative mg/dl PROT DIPSTX Normal Negative LAB L400.3700 Normal mg/dl UROBILI Normal Normal LAB L400.3750 Negative NITRITE UR Normal Negative LAB L400.3780 Negative /ul OCCULT Normal BLOOD-UR Negative LAB L400.3800 Negative /ul LEUK High ESTERASE 100 LAB L400.4050 0-5 /hpf WBC Normal 0-5 SEEN LAB L400.4100 0-5 /hpf RBC-UA Normal 0 SEEN LAB L400.4150 5-10 /hpf SQUAM EPI Normal 0-5 SEEN LAB L400.4300 None Seen /hpf BACTERIA Normal RARE LAB L400.4350 <or=2+ /hpf MUCUS, Normal URINE 0 SEEN LAB L400.4200 0-5 /hpf Normal TRANSITIONAL EP 0-5 SEEN LAB L400.5200 None Seen /hpf YEAST-URINE Normal RARE Performed By: #### L400.0001 #### [facility] [address] [place], [place], [address] CBC-COMPLETE BLOOD CNT Collected: 09/13/2018 Status: F Source: [place] NO DIFF 9:20 PM [facility] REPOSITORY TYPE CODE TESTS RESULT OUT OF RANGE REFERENCE UNITS LAB L100.1000 4.4-11.0 K/mm3 High WBC 13.8 LAB L100.1200 4.2-5.4 M/mm3 Low RBC 4.10 LAB L100.1300 12.0-15.0 g/dl Normal HGB 12.5 LAB L100.1400 37-47 % Low HCT 36.6 LAB L100.1500 81-99 fL Normal MCV 89.3 LAB L100.1600 27.0-32.0 pg Normal MCH 30.5 LAB L100.1700 32-36 g/gl Normal MCHC 34.2 LAB L100.1810 11.6-14.6 % Normal RDW CV 14.4 LAB L100.1820 35.1-43.9 fl High RDW SD 46.9 LAB L100.1900 150-450 K/mm3 Normal PLT 200 LAB L100.2000 6.2-12.0 fl Normal MPV 9.0 Performed By: #### L100.0500 #### [facility] [address] [place], [place], [address] URGENT CARE VISIT Observed: 09/11/2018 Status: F Source: [place] REPORT 5:13 PM [facility] REPOSITORY [facility] [address] [place], [place] [address] OFFICE VISIT Date of Service: 09/11/18 MR#: [id number] Acct: [id number] Name: CLAREJEANETTEYADIRA BLUNT Villa Rep #: [id number] : 1990 Provider: Junior FLORES Age/Sex: 28/F [place] [facility] [place] Status: Signed with Addenda ADDENDUM by Junior FLORES on 09/11/18 at 1713 Addendum entered and electronically signed by MARK Abernathy 09/11/18 17:13: Urinalysis from lab verifies 25,000 white leukocytes therefore antibiotic as prescribed today; nursing to notify patient by phone at this time. HPI Details: YADIRA BOLAÑOS, is a 28 F who presents to the office today for Assessment AND Plan Problems 1. Influenza J11.1 2. Urinary frequency R35.0 Plan - MARK Abernathy Though today's rapid flu test was negative, described patient that the sensitivity on the test is only 50-70%, coupled with symptoms of the patient is presenting, will treat with Tamiflu as prescribed today. Urinalysis dip reveals only trace leukocytes, therefore we will send sample to lab for further evaluation before determining treatment with antibiotic as appropriate. Reinforce appropriate hygiene measures. Clear fluids, rest, Tylenol as needed for symptomatic relief. Follow-up with PCP or OB gynecology in 3-5 days should symptoms not improved, sooner should symptoms worsen or any other concerns develop. Patient states acknowledging understanding all the above. This note was generated with [employer]ak[employer] dictation software. It may contain incorrect words, spelling, and punctuation that were not noted in checking the note before signing. Orders Orders: Medications New: 09/11/181712 <Electronically signed by Junior FLORES> Date Junior Davis cc: * Signed Intake Vital Signs09/11/18 Height 5 ft 4 in 09/11/18 Weight: 230 lb 09/11/18 Body Mass Index (BMI) 39.4 09/11/18 Blood Pressure 104/78 09/11/18 Respiratory Rate 16 Intake Visit Reasons: POSS FLU AND UTI Chief Complaint: flu/uti Mechanic Chief Required: No Accompanied by: self Is patient in pain?: Yes (back) Allergies No Known Allergies Allergy (Verified 09/11/18 12:19) Medications Vit No.130/Iron/Folic [ Vitamins] 1 tab PO DAILY 09/29/15 [History Confirmed 09/11/18] levothyroxine 25 mcg tablet 50 mcg PO DAILY tab 09/04/17 [History Confirmed 09/11/18] Thyroid,Pork [[place] Thyroid] 30 mg PO DAILY 09/07/17 [History Confirmed 09/11/18] ondansetron HCl 4 mg tablet 4 mg PO Q6H PRN #60 tab 04/29/18 [Rx Confirmed 09/11/18] sertraline 100 mg tablet 150 mg PO QDAY #135 tab 09/01/18 [Rx Confirmed 09/11/18] oseltamivir 75 mg capsule 75 mg PO BID 5 Days #10 cap 09/11/18 [Rx Confirmed 09/11/18] PFSH Medical History Back pain (Acute) Chest pain (Acute) Fatigue (Acute) Hypothyroid (Acute) Incontinence (Acute) Post depression (Acute) Severe headache (Acute) Family History Grandfather Diabetes Father Hypertension Social History number of children: 2 current occupational status: employed current occupation: [employer] Smoking Status: Never smoker alcohol intake: never substance use type: does not use caffeine: Yes Type: tea, coffee what type of physical activity do you participate in: none seatbelt use: always do you feel safe at home: Yes additional social history: Ed-Ayala HPI HPI Chief Complaint: flu/uti Details: YADIRA BOLAÑOS, is a 28 F who presents to the office today for initial evaluation fever, dry cough, myalgias beginning late last evening. Additionally, patient notes having urinary frequency, stating she had her urine sample checked at her TOP TAPER MACHINE's office earlier this morning but nonetheless would like to have it rechecked here today as well. She notes no complaints of sweats or rash or chest pain/shortness of breath. She has been taking [id number] Tylenol to assist with her symptoms. She notes no other associated symptoms and no other alleviating or aggravating factors. ROS Const Constitutional: No other (ROS negative x10 other than as noted above) Exam Const General: cooperative, healthy appearing, no acute distress, uncomfortable Nutritional Appearance: average body habitus Orientation: alert, awake, oriented x3 HENMT Head: normal to inspection Ears: hearing grossly normal bilaterally, external ears normal, TM's normal bilaterally, EAC's normal Nose: external nose normal, nares normal, septum normal, no nasal discharge Face and sinus: normal facial exam, face symmetric, sinuses nontender Mouth: oral mucosae normal, lip normal, tongue normal Teeth and gingiva: gingiva normal, dentition normal Throat: uvula midline, tonsils normal, posterior oropharynx normal, no postnasal drainage Eyes General: appearance normal, both eyes and all related structures Neck Neck: normal visual inspection, full ROM, no meningeal signs, supple, no lymphadenopathy Neck mass: No Thyroid: thyroid normal Lymphatic: no lymphadenopathy noted Chest Chest palpation AND inspection: normal inspection of the chest Resp Effort AND Inspection: normal respiratory effort, able to speak in complete sentences, symmetric chest movement, cough Quality of cough: dry Auscultation: Bilateral: Clear to Auscultation Cardio Palpation: normal PMI Rate: tachycardic Rhythm: regular rhythm Heart Sounds: S1 normal, S2 normal, no gallops, no murmurs, no rubs Pulses: radial pulses present GI Inspection: normal to inspection Palpation: soft (29 weeks gestation) General: No CVA tenderness, other (Urinalysis dip reveals trace leukocytes, otherwise unremarkable) Skin General: no rashes or lesions noted Neuro General: alert, awake, oriented x3, gait normal Cognition: normal cognition Speech: speech normal Gait: normal gait Motor: muscle tone normal throughout Sensory Exam: no sensory deficits noted Psych Appearance: grossly normal Mental Status: mental status grossly normal Mood: congruent mood Affect: normal affect Speech and Movement: speech and movement normal Attitude: cooperative Thought Process: normal Thought Content: normal Judgment: judgment good Results BMSFLUAB Office Flu A AND B Negative FLU A AND B Last Edit by Tosin Santa on 09/11/18 13:04 BMSUA Office Urine Color YELLOW Last Edit by Tosin Santa on 09/11/18 13:05 trace leukocytes Assessment AND Plan Problems 1. Influenza J11.1 2. Urinary frequency R35.0 Plan Though today's rapid flu test was negative, described patient that the sensitivity on the test is only 50-70%, coupled with symptoms of the patient is presenting, will treat with Tamiflu as prescribed today. Urinalysis dip reveals only trace leukocytes, therefore we will send sample to lab for further evaluation before determining treatment with antibiotic as appropriate. Reinforce appropriate hygiene measures. Clear fluids, rest, Tylenol as needed for symptomatic relief. Follow-up with PCP or OB gynecology in 3-5 days should symptoms not improved, sooner should symptoms worsen or any other concerns develop. Patient states acknowledging understanding all the above. This note was generated with SpeakWorks dictation software. It may contain incorrect words, spelling, and punctuation that were not noted in checking the note before signing. Orders Orders: Medications New: Coding Level of Care Code Off vis,est,level 4 Diagnoses Influenza J11.1 Urinary frequency R35.0 09/11/18 1320 <Electronically signed by Junior FLORES> Date Junior FLORES Cosigner Signature: Date (if applicable) CC: URINALYSIS, COMPLETE Collected: 09/11/2018 Status: F Source: [place] 1:00 PM [facility] REPOSITORY Order Comment: How was Urine Obtained? CLEAN CATCH TYPE CODE TESTS RESULT OUT OF RANGE REFERENCE UNITS LAB L400.3000 Yellow COLOR Normal Yellow LAB L400.3050 Clear Normal CLARITY Sl. Cloudy LAB L400.3200 Normal mg/dl Normal GLUCOSE, UR Normal LAB L400.3300 Negative mg/dL Normal BILIRUBIN URINE Negative LAB L400.3400 Negative mg/dl Normal KETONE UR Negative LAB L400.3465 1.002-1.030 Normal SP.GR. DIPSTX 1.010 LAB L400.3550 5.0 - 8.0 pH UR Normal 8.0 LAB L400.3600 Negative mg/dl PROT Normal DIPSTX Negative LAB L400.3700 Normal mg/dl Normal UROBILI Normal LAB L400.3750 Negative Normal NITRITE UR Negative LAB L400.3780 Negative /ul Normal OCCULT BLOOD-UR Negative LAB L400.3800 Negative /ul High LEUK 25 ESTERASE LAB L400.4050 0-5 /hpf WBC Normal 0-5 SEEN LAB L400.4100 0-5 /hpf 0 Normal RBC-UA SEEN LAB L400.4150 5-10 /hpf SQUAM Normal EPI 0-5 SEEN LAB L400.4300 None Seen /hpf 1+ Normal BACTERIA LAB L400.4350 <or=2+ /hpf 0 Normal MUCUS, URINE SEEN Performed By: #### L400.0001 #### [facility] [address] [place], [address] Observed: 09/11/2018 Status: F Source: [place] CULTURE, URINE 1:00 PM [facility] REPOSITORY Urine Culture ORGANISM 1: Mixed Gram Positive Organisms [place] Count 11,000-25,000 MIX CULTURE Mixed contaminants. Submit a new specimen if indicated. Performed By: #### M100.0650 #### [facility] [address] [place], [address] CBC W/DIFF, AUTOMATED Collected: 09/01/2018 Status: F Source: [place] 4:03 PM [facility] REPOSITORY TYPE CODE TESTS RESULT OUT OF RANGE REFERENCE UNITS LAB L100.1000 4.4-11.0 K/mm3 Normal WBC 10.0 LAB L100.1200 4.2-5.4 M/mm3 Low RBC 3.79 LAB L100.1300 12.0-15.0 g/dl Low HGB 11.5 LAB L100.1400 37-47 % Low HCT 35.0 LAB L100.1500 81-99 fL Normal MCV 92.3 LAB L100.1600 27.0-32.0 pg Normal MCH 30.3 LAB L100.1700 32-36 g/gl Normal MCHC 32.9 LAB L100.1810 11.6-14.6 % Normal RDW CV 14.3 LAB L100.1820 35.1-43.9 fl High RDW SD 46.7 LAB L100.1900 150-450 K/mm3 Normal PLT 201 LAB L100.2000 6.2-12.0 fl Normal MPV 9.3 LAB L100.2100 47-70 % High NEUT% 73.1 LAB L100.2200 19-41 % Normal LY% 20.2 LAB L100.2300 0-10 % Normal MONO% 5.0 LAB L100.2400 0-5 % Normal EO% 1.1 LAB L100.2500 0-1 % Normal BASO% 0.1 LAB L100.2550 0.0-0.9 % Normal IM GRAN % 0.500 Result Comment: IG% - Immature Granulocytes (promyelocytes, myelocytes and metamyelocytes) > 1% indicates that a LEFT SHIFT is Present. LAB L100.2620 2.0-7.7 X10 3/uL Normal Absolute Neut 7.3 LAB L100.2720 0.83-4.51 X10 3/ul Normal Absolute Lymph 2.03 Performed By: #### L100.0100 #### [facility] [address] [place], [address] GLUCOSE CHALLENGE GEST Collected: 09/01/2018 Status: F Source: [place] 1H 50G 4:03 PM [facility] REPOSITORY TYPE CODE TESTS RESULT OUT OF RANGE REFERENCE UNITS LAB L501.0250 70-140 mg/dL Normal GLU GEST 108 50g 1H Performed By: #### L501.0250 #### [facility] [address] [place], [address] TOP TAPER MACHINE OFFICE VISIT Observed: 09/01/2018 Status: F Source: [place] REPORT 3:39 PM [facility] REPOSITORY [facility] [place] [address] [place] [address] OFFICE VISIT Date of Service: 09/01/18 MR#: [id number] Acct: [id number] Name: YADIRA BOLAÑOS Rep #: [id number] : 1990 Provider: Mary Blackburn MD Age/Sex: 28/F [place] [facility] [place] Status: Signed with Addenda ADDENDUM by Robyn Cheng on 09/01/18 at 1539 OFFICE PROCEDURES Office Procedure Documentation entered by Robyn Cheng 09/01/18 15:39: Immunizations Boostrix Tdap Performing Provider: Mary Blackburn MD Administered by: Robyn Cheng on 09/01/18 15:38 Dose Route Admin Location Lot Number Expiration Date NDC Nut Cracker 0.5 mL IM Right Arm (SQ) [id number] 07/19/25 02296-953-25 [employer] VIS Given Date VIS Publication Date 09/01/18 11/23/14 Eligibility Eligibility Date 09/01/18 1539 <Electronically signed by Robyn Cheng > Date Robyn Cheng cc: * Signed Intake Vital Signs09/01/18 Height 5 ft 4 in 09/01/18 Weight: 230 lb 09/01/18 Body Mass Index (BMI) 39.4 09/01/18 Blood Pressure 100/62 Intake Visit Reasons: 28 WEEK OB 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 Is patient in pain?: No Allergies No Known Allergies Allergy (Verified 09/01/18 14:53) Medications Vit No.130/Iron/FA [ Vitamins] 1 tab PO DAILY 09/29/15 [History Confirmed 09/01/18] levothyroxine 25 mcg tablet 50 mcg PO DAILY tab 09/04/17 [History Confirmed 09/01/18] Thyroid,Pork [[place] Thyroid] 30 mg PO DAILY 09/07/17 [History Confirmed 09/01/18] ondansetron HCl 4 mg tablet 4 mg PO Q6H PRN #60 tab 04/29/18 [Rx Confirmed 09/01/18] sertraline 100 mg tablet 150 mg PO QDAY #135 tab 09/01/18 [Rx Confirmed 09/01/18] Last Menstral Period: 04/14/18 Zika: Zika virus screening: Negative : No PFSH PFSH Medical History Hypothyroid (Acute) Post depression (Acute) Family History Grandfather Diabetes Father Hypertension Social History number of children: 2 current occupational status: employed current occupation: [employer] Smoking Status: Never smoker alcohol intake: never substance use type: does not use caffeine: Yes Type: tea, coffee what type of physical activity do you participate in: none seatbelt use: always do you feel safe at home: Yes additional social history: Ed-Ayala Pregancy History 3 Elective abortions Hx Para 2 Spontaneous abortions Past Pregnancies Del. DateName GA/Weeks Outcome Route Bth WeighInfant GeLabor LgtAnesthesiDel LocatProvider FOB t n h a n HPI 28 WEEK OB: Details: YADIRA BOLAÑOS is a 28 year old who presents for routine OB visit. OB Visit NAV Calculator Estimated Delivery Date 11/24/18 Based on Ultrasound Date 04/14/18 Current WG 28w 0d Number 1 Expected Delivery Route/Plan Specific Issue/Plans flu vaccine: given tdap vaccine: given rhogam: na LARC form signed: [] labor support person: [] pain management: [] cut cord/dad catch: [] : [] PP control planned: [] discussed possible routes of delivery and associated risks: [] special requests: [] Initial Weight: 213 lb Date Weight BP Urine PrFHR FuHt Pres MoCTX DilationFetal StVisit NoProviderComments E ot v te GA G Effac lucose ed Visit Notes Visit Date: 09/01/18 no vb lof good fm no regualr ctx some increased anxiety. will increase zoloft and starting back with counseling Mary Blackburn MD on 09/01/18 Visit Date: 08/04/18 co mid back pain. no vb lof good fm n oregular ctx Mary Blackburn MD on 08/04/18 Visit Date: 07/07/18 no vb lof cramping Mary Blackburn MD on 07/07/18 Visit Date: 06/09/18 no vb cramping nausea resolved, some stress at work- overall mood stable. encouraged counseling Mary Blackburn MD on 06/09/18 Visit Date: 05/12/18 no vb cramping nasea improved Mary Blackburn MD on 05/12/18 Visit Date: 04/29/18 Confirmed FHT with brief US. Nausea problematic. No VB, LOF. EDITH Sewell on 04/29/18 Diagnostics Diagnostics Labs Blood Type O POSITIVE 04/29/18 Antibody Screen NEGATIVE 04/29/18 Hct 37.9 % (37-47) 04/29/18 Hgb 13.1 g/dl (12.0-15.0) 04/29/18 Rubella IgG Antibody 35.4 IU/mL 04/29/18 RPR NONREACTIVE (NONREACTIVE) 04/29/18 Hep Bs Antigen Negative (Negative) 04/29/18 Chlam trachomat DNA PCR Negative (Negative) 04/14/18 N.gonorrhoeae DNA (PCR) Negative (Negative) 04/14/18 Details: HIV: Urine Culture: Sequential Screen: NIPT Screen: Results [id number] Office Urine Glucose Negative Last Edit by Robyn Cheng on 09/01/18 14:59 Office Urine Protein Negative Last Edit by Robyn Cheng on 09/01/18 14:59 Assessment AND Plan Problems 1. Short interval between pregnancies affecting , antepartum O09.899 2. 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 anatomy screen normal- fu views of spine were normal. 3. Acquired hypothyroidism E03.9 labs q trimester 4. Encounter for supervision of other normal in third trimester Z34.83 PRR NAV 11/24/18 Barry Infante Ed Plan ACOG trimester education reviewed and updated. see problem list details for updated plan management information and see below for orders placed at this visit. [place] appropriate handout given. Orders Orders: Medications Changed: Coding Level of Care Code OB Routine Diagnoses Short interval between pregnancies affecting , antepartum O09.899 28 weeks gestation of Z3A.28 Weeks of gestation: 28 weeks Acquired hypothyroidism E03.9 Hypothyroidism type: acquired Encounter for supervision of other normal in third trimester Z34.83 Normal : other normal Trimester: third trimester 09/01/18 1535 <Electronically signed by Mary Blackburn MD> Date Mary Blackburn MD Cosigner Signature: Date (if applicable) CC: THYROID STIM HORMONE Collected: 08/04/2018 Status: F Source: [place] (TSH) 4:53 PM [facility] REPOSITORY TYPE CODE TESTS RESULT OUT OF RANGE REFERENCE UNITS LAB L501.9520 0.358-3.74 uIU/mL Normal TSH 0.86 Performed By: #### L501.9520, L506.0400 #### [facility] [address] [place], [address] T4 FREE DIRECT Collected: 08/04/2018 Status: F Source: [place] 4:53 PM [facility] REPOSITORY TYPE CODE TESTS RESULT OUT OF RANGE REFERENCE UNITS LAB L506.0400 0.76-1.46 ng/dL Normal T4 FREE 0.81 DIRECT Performed By: #### L501.9520, L506.0400 #### [place] [facility] [address] [place], [address] TOP TAPER MACHINE OFFICE VISIT Observed: 08/04/2018 Status: F Source: [place] REPORT 4:40 PM [facility] REPOSITORY [facility] [place] 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 Is patient in pain?: No Allergies No Known Allergies Allergy (Verified 08/04/18 16:17) Medications Vit No.130/Iron/FA [ Vitamins] 1 tab PO DAILY 09/29/15 [History Confirmed 08/04/18] levothyroxine 25 mcg tablet 50 mcg PO DAILY tab 09/04/17 [History Confirmed 08/04/18] Thyroid,Pork [[place] Thyroid] 30 mg PO DAILY 09/07/17 [History Confirmed 08/04/18] Naproxen [Naprosyn] 250 - 500 mg PO Q8H PRN PRN #30 tab 09/10/17 [Rx Confirmed 08/04/18] sertraline 100 mg tablet 100 mg PO QDAY #90 tab 01/16/18 [Rx Confirmed 08/04/18] ondansetron HCl 4 mg tablet 4 mg PO Q6H PRN #60 tab 04/29/18 [Rx Confirmed 08/04/18] Last Menstral Period: 12/08/16 Zika: Zika virus screening: Negative : No PFSH PFSH Medical History Hypothyroid (Acute) Post depression (Acute) Family History Grandfather Diabetes Father Hypertension Social History number of children: 2 current occupational status: employed current occupation: [employer] Smoking Status: Never smoker alcohol intake: never substance use type: does not use caffeine: Yes Type: tea, coffee what type of physical activity do you participate in: none seatbelt use: always do you feel safe at home: Yes additional social history: Ed-Ayala Pregancy History 3 Elective abortions Hx Para 2 Spontaneous abortions Past Pregnancies Del. DateName GA/Weeks Outcome Route Bth WeighInfant GeLabor LgtAnesthesiDel LocatProvider FOB t n h a n HPI 24 WEEK OB: Details: YADIRA BOLAÑOS is a 28 year old who presents for routine OB visit. OB Visit NAV Calculator Estimated Delivery Date 11/24/18 Based on Ultrasound Date 04/14/18 Current WG 24w 0d Number 1 Expected Delivery Route/Plan Specific Issue/Plans flu vaccine: given tdap vaccine: [] rhogam: [] LARC form signed: [] labor support person: [] pain management: [] cut cord/dad catch: [] : [] PP control planned: [] discussed possible routes of delivery and associated risks: [] special requests: [] Initial Weight: 213 lb Date Weight BP Urine PrFHR FuHt Pres MoCTX DilationFetal StVisit NoProviderComments E ot v te GA G Effac lucose ed Visit Notes Visit Date: 08/04/18 co mid back pain. no vb lof good fm n oregular ctx Mary Blackburn MD on 08/04/18 Visit Date: 07/07/18 no vb lof cramping Mary Blackburn MD on 07/07/18 Visit Date: 06/09/18 no vb cramping nausea resolved, some stress at work- overall mood stable. encouraged counseling Mary Blackburn MD on 06/09/18 Visit Date: 05/12/18 no vb cramping nasea improved Mary Blackburn MD on 05/12/18 Visit Date: 04/29/18 Confirmed FHT with brief US. Nausea problematic. No VB, LOF. Billie Canales NP-C on 04/29/18 ACOG First Trimester First Trimester: Desire for , Alcohol, Tobacco Cessation, Illicit/Recreational Drug/Substance Use, Intimate Partner Violence, Barriers to care, Unstable Housing, Communication Barriers, Environmental/Work Hazards, Anticipated Course of Care, Toxoplasmosis Precations, Use of Any medications, Sexual activity, Exercise, Dental Care, Sauna/Hot tub use, Seat Belt use, Childbirth classes/Hospital facilities, , Travel, Indications for US and Screening for Aneuploidy Diagnostics Diagnostics Labs Blood Type O POSITIVE 04/29/18 Antibody Screen NEGATIVE 04/29/18 Hct 37.9 % (37-47) 04/29/18 Hgb 13.1 g/dl (12.0-15.0) 04/29/18 Rubella IgG Antibody 35.4 IU/mL 04/29/18 RPR NONREACTIVE (NONREACTIVE) 04/29/18 Hep Bs Antigen Negative (Negative) 04/29/18 Chlam trachomat DNA PCR Negative (Negative) 04/14/18 N.gonorrhoeae DNA (PCR) Negative (Negative) 04/14/18 Details: HIV: Urine Culture: Sequential Screen: NIPT Screen: Results [id number] Office Urine Glucose Negative Last Edit by Robyn Cheng on 08/04/18 16:20 Office Urine Protein Negative Last Edit by Robyn Cheng on 08/04/18 16:20 Assessment AND Plan Problems 1. 24 weeks gestation of Z3A.24 genetic, carrier, and NTD screening declined. anatomy screen normal- fu views of spine were normal. 2. Short interval between pregnancies affecting , antepartum O09.899 3. Encounter for supervision of other normal in second trimester Z34.82 PRR NAV 11/24/18 PC Barry Gomez Ed 4. Hypothyroidism E03.9 labs q trimester Plan ACOG trimester education reviewed and updated. see problem list details for updated plan management information and see below for orders placed at this visit. [place] appropriate handout given. Orders Orders: Coding Level of Care Code OB Routine Diagnoses 24 weeks gestation of Z3A.24 Weeks of gestation: 24 weeks Short interval between pregnancies affecting , antepartum O09.899 Encounter for supervision of other normal in second trimester Z34.82 Normal : other normal Trimester: second trimester Hypothyroidism E03.9 08/04/18 1640 <Electronically signed by Mary Blackburn MD> Date [facility] Signature: Date (if applicable) CC: TOP TAPER MACHINE OFFICE VISIT Observed: 07/07/2018 Status: F Source: [place] REPORT 4:56 PM [facility] [address] [place] [address] OFFICE VISIT Date of Service: 07/07/18 MR#: [id number] Acct: [id number] Name: YADIRA BOLAÑOS Rep #: [id number] : 1990 Provider: Mary Blackburn MD Age/Sex: 28/F [place] [facility] [place] Status: Signed with Addenda ADDENDUM by Tosin Smith on 07/07/18 at 6447 OFFICE PROCEDURES Office Procedure Documentation entered by Tosin Smith 07/07/18 16:56: Office Meds Flucelvax Quad [id number] (PF) Performing Provider: Mary Blackburn MD Administered by: Tosin Smith on 07/07/18 16:54 Dose Route Admin Location Lot Number Expiration Date NDC Nut Cracker 0.5 mL IM right deltoid [id number] 03/29/19 [id number] SEQIRUS 07/07/18 1656 <Electronically signed by Tosin Smith > Date Tosin Smith cc: * Signed Intake Vital Signs07/07/18 Height 5 ft 4 in 07/07/18 Weight: 220 lb 4 oz 07/07/18 Body Mass Index (BMI) 37.8 07/07/18 Blood Pressure 102/70 Intake Visit Reasons: 20 weeks 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 Is patient in pain?: No Allergies No Known Allergies Allergy (Verified 07/07/18 16:06) Medications Vit No.130/Iron/FA [ Vitamins] 1 tab PO DAILY 09/29/15 [History Confirmed 07/07/18] levothyroxine 25 mcg tablet 50 mcg PO DAILY tab 09/04/17 [History Confirmed 07/07/18] Thyroid,Pork [[place] Thyroid] 30 mg PO DAILY 09/07/17 [History Confirmed 07/07/18] Naproxen [Naprosyn] 250 - 500 mg PO Q8H PRN PRN #30 tab 09/10/17 [Rx Confirmed 07/07/18] sertraline 100 mg tablet 100 mg PO QDAY #90 tab 01/16/18 [Rx Confirmed 07/07/18] ondansetron HCl 4 mg tablet 4 mg PO Q6H PRN #60 tab 04/29/18 [Rx Confirmed 07/07/18] Last Menstral Period: 12/08/16 Zika: Zika virus screening: Negative : No PFSH PFSH Medical History Hypothyroid (Acute) Post depression (Acute) Family History Grandfather Diabetes Father Hypertension Social History number of children: 2 current occupational status: employed current occupation: [employer] Smoking Status: Never smoker alcohol intake: never substance use type: does not use caffeine: Yes Type: tea, coffee what type of physical activity do you participate in: none seatbelt use: always do you feel safe at home: Yes additional social history: Ed-Ayala Pregancy History 3 Elective abortions Hx Para 2 Spontaneous abortions Past Pregnancies Del. DateName GA/Weeks Outcome Route Bth WeighInfant GeLabor LgtAnesthesiDel LocatProvider FOB t n h a n HPI 20 weeks: Details: YADIRA BOLAÑOS is a 28 year old who presents for routine OB visit. OB Visit NAV Calculator Estimated Delivery Date 11/24/18 Based on Ultrasound Date 04/14/18 Current WG 20w 0d Number 1 Expected Delivery Route/Plan Specific Issue/Plans flu vaccine: given tdap vaccine: [] rhogam: [] LARC form signed: [] labor support person: [] pain management: [] cut cord/dad catch: [] : [] PP control planned: [] discussed possible routes of delivery and associated risks: [] special requests: [] Initial Weight: 213 lb Date Weight BP Urine PrFHR FuHt Pres MoCTX DilationFetal StVisit NoProviderComments E ot v te [place] G Effac lucose ed Visit Notes Visit Date: 07/07/18 no vb lof cramping Mary Blackburn MD on 07/07/18 Visit Date: 06/09/18 no vb cramping nausea resolved, some stress at work- overall mood stable. encouraged counseling Mary Blackburn MD on 06/09/18 Visit Date: 05/12/18 no vb cramping nasea improved Mary Blackburn MD on 05/12/18 Visit Date: 04/29/18 Confirmed FHT with brief US. Nausea problematic. No VB, LOF. EDITH Sewell on 04/29/18 ACOG First Trimester First Trimester: Desire for , Alcohol, Tobacco Cessation, Illicit/Recreational Drug/Substance Use, Intimate Partner Violence, Barriers to care, Unstable Housing, Communication Barriers, Environmental/Work Hazards, Anticipated Course of Care, Toxoplasmosis Precations, Use of Any medications, Sexual activity, Exercise, Dental Care, Sauna/Hot tub use, Seat Belt use, Childbirth classes/Hospital facilities, , Travel, Indications for US and Screening for Aneuploidy Diagnostics Diagnostics Labs Blood Type O POSITIVE 04/29/18 Antibody Screen NEGATIVE 04/29/18 Hct 37.9 % (37-47) 04/29/18 Hgb 13.1 g/dl (12.0-15.0) 04/29/18 Rubella IgG Antibody 35.4 IU/mL 04/29/18 RPR NONREACTIVE (NONREACTIVE) 04/29/18 Hep Bs Antigen Negative (Negative) 04/29/18 Chlam trachomat DNA PCR Negative (Negative) 04/14/18 N.gonorrhoeae DNA (PCR) Negative (Negative) 04/14/18 Details: HIV: Urine Culture: Sequential Screen: NIPT Screen: Results [id number] Office Urine Glucose Negative Last Edit by Robyn Cheng on 07/07/18 16:11 Office Urine Protein Negative Last Edit by Robyn Cheng on 07/07/18 16:11 Assessment AND Plan Problems 1. 16 weeks gestation of Z3A.16 genetic, carrier, and NTD screening declined. anatomy screen normal- fu views spine scheduled. 2. Short interval between pregnancies affecting , antepartum O09.899 3. Encounter for supervision of other normal in second trimester Z34.82 PRR NAV 11/24/18 Barry Infante Ed Plan ACOG trimester education reviewed and updated. see problem list details for updated plan management information and see below for orders placed at this visit. [place] appropriate handout given. Orders Orders: Coding Level of Care Code OB Routine Diagnoses 16 weeks gestation of Z3A.16 Weeks of gestation: 16 weeks Short interval between pregnancies affecting , antepartum O09.899 Encounter for supervision of other normal in second trimester Z34.82 Normal : other normal Trimester: second trimester 07/07/18 1626 <Electronically signed by Mary Blackburn MD> Date Mary Blackburn MD Cosigner Signature: Date (if applicable) CC: TOP TAPER MACHINE OFFICE VISIT Observed: 06/09/2018 Status: F Source: [place] REPORT 4:08 PM [facility] [place] 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 Is patient in pain?: No Allergies No Known Allergies Allergy (Verified 06/09/18 15:43) Medications Vit No.130/Iron/FA [ Vitamins] 1 tab PO DAILY 09/29/15 [History Confirmed 06/09/18] levothyroxine 25 mcg tablet 50 mcg PO DAILY tab 09/04/17 [History Confirmed 06/09/18] Thyroid,Pork [[place] Thyroid] 30 mg PO DAILY 09/07/17 [History Confirmed 06/09/18] Naproxen [Naprosyn] 250 - 500 mg PO Q8H PRN PRN #30 tab 09/10/17 [Rx Confirmed 06/09/18] sertraline 100 mg tablet 100 mg PO QDAY #90 tab 01/16/18 [Rx Confirmed 06/09/18] ondansetron HCl 4 mg tablet 4 mg PO Q6H PRN #60 tab 04/29/18 [Rx Confirmed 06/09/18] Last Menstral Period: 12/08/16 Zika: Zika virus screening: Negative : No PFSH PFSH Medical History Hypothyroid (Acute) Post depression (Acute) Family History Grandfather Diabetes Father Hypertension Social History number of children: 2 current occupational status: employed current occupation: [employer] Smoking Status: Never smoker alcohol intake: never substance use type: does not use caffeine: Yes Type: tea, coffee what type of physical activity do you participate in: none seatbelt use: always do you feel safe at home: Yes additional social history: Ed-Ayala Pregancy History 3 Elective abortions Hx Para 2 Spontaneous abortions Past Pregnancies Del. DateName GA/Weeks Outcome Route Bth WeighInfant GeLabor LgtAnesthesiDel LocatProvider FOB t n h a n HPI 16 weeks: Details: YADIRA BOLAÑOS is a 28 year old who presents for routine OB visit. OB Visit NAV Calculator Estimated Delivery Date 11/24/18 Based on Ultrasound Date 04/14/18 Current WG 16w 0d Number 1 Expected Delivery Route/Plan Initial Weight: 213 lb Date Weight BP Urine PrFHR FuHt Pres MoCTX DilationFetal StVisit NoProviderComments E ot v te [place] G Effac lucose ed Visit Notes Visit Date: 06/09/18 no vb cramping nausea resolved, some stress at work- overall mood stable. encouraged counseling Mary Blackburn MD on 06/09/18 Visit Date: 05/12/18 no vb cramping nasea improved Mary Blackburn MD on 05/12/18 Visit Date: 04/29/18 Confirmed FHT with brief US. Nausea problematic. No VB, LOF. Billie Canales NP-C on 04/29/18 ACOG First Trimester First Trimester: Desire for , Alcohol, Tobacco Cessation, Illicit/Recreational Drug/Substance Use, Intimate Partner Violence, Barriers to care, Unstable Housing, Communication Barriers, Environmental/Work Hazards, Anticipated Course of Care, Toxoplasmosis Precations, Use of Any medications, Sexual activity, Exercise, Dental Care, Sauna/Hot tub use, Seat Belt use, Childbirth classes/Hospital facilities, , Travel, Indications for US and Screening for Aneuploidy Diagnostics Diagnostics Labs Blood Type O POSITIVE 04/29/18 Antibody Screen NEGATIVE 04/29/18 Hct 37.9 % (37-47) 04/29/18 Hgb 13.1 g/dl (12.0-15.0) 04/29/18 Rubella IgG Antibody 35.4 IU/mL 04/29/18 RPR NONREACTIVE (NONREACTIVE) 04/29/18 Hep Bs Antigen Negative (Negative) 04/29/18 Chlam trachomat DNA PCR Negative (Negative) 04/14/18 N.gonorrhoeae DNA (PCR) Negative (Negative) 04/14/18 Rhogam given: No 09/10/17 Details: HIV: Urine Culture: Sequential Screen: NIPT Screen: Assessment AND Plan Problems 1. 16 weeks gestation of Z3A.16 genetic, carrier, and NTD screening declined. anatomy screen ordered. 2. Encounter for supervision of other normal in second trimester Z34.82 PRR NAV 11/24/18 PC Barry Gomez Ed 3. Short interval between pregnancies affecting , antepartum O09.899 Plan ACOG trimester education reviewed and updated. see problem list details for updated plan management information and see below for orders placed at this visit. [place] appropriate handout given. Orders Orders: Coding Level of Care Code OB Routine Diagnoses 16 weeks gestation of Z3A.16 Weeks of gestation: 16 weeks Encounter for supervision of other normal in second trimester Z34.82 Normal : other normal Trimester: second trimester Short interval between pregnancies affecting , antepartum O09.899 06/09/18 1608 <Electronically signed by Mary Blackburn MD> Date Mary Blackburn MD Cosigner Signature: Date (if applicable) CC: TOP TAPER MACHINE OFFICE VISIT Observed: 05/12/2018 Status: F Source: [place] REPORT 4:24 PM [facility] [address] [place], [place] [address]. 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 Is patient in pain?: No Allergies No Known Allergies Allergy (Verified 05/12/18 15:56) Medications Vit No.130/Iron/FA [ Vitamins] 1 tab PO DAILY 09/29/15 [History Confirmed 05/12/18] levothyroxine 25 mcg tablet 50 mcg PO DAILY tab 09/04/17 [History Confirmed 05/12/18] Thyroid,Pork [[place] Thyroid] 30 mg PO DAILY 09/07/17 [History Confirmed 05/12/18] Naproxen [Naprosyn] 250 - 500 mg PO Q8H PRN PRN #30 tab 09/10/17 [Rx Confirmed 05/12/18] sertraline 100 mg tablet 100 mg PO QDAY #90 tab 01/16/18 [Rx Confirmed 05/12/18] ondansetron HCl 4 mg tablet 4 mg PO Q6H PRN #60 tab 04/29/18 [Rx Confirmed 05/12/18] Last Menstral Period: 12/08/16 Zika: Zika virus screening: Negative : No PFSH PFSH Medical History Hypothyroid (Acute) Post depression (Acute) Family History Grandfather Diabetes Father Hypertension Social History number of children: 2 current occupational status: employed current occupation: [employer] Smoking Status: Never smoker alcohol intake: never substance use type: does not use caffeine: Yes Type: tea, coffee what type of physical activity do you participate in: none seatbelt use: always do you feel safe at home: Yes additional social history: Ed-Ayala Pregancy History 2 Elective abortions Hx Para 2 Spontaneous abortions Past Pregnancies Del. DateName GA/Weeks Outcome Route Bth WeighInfant GeLabor LgtAnesthesiDel LocatProvider FOB t n h a n HPI 12 weeks with US: Details: YADIRA BOLAÑOS is a 28 year old who presents for routine OB visit. OB Visit NAV Calculator Estimated Delivery Date 11/24/18 Based on Ultrasound Date 04/14/18 Current WG 12w 0d Number 1 Expected Delivery Route/Plan Initial Weight: Not Recorded Date Weight BP Urine PrFHR FuHt Pres MoCTX DilationFetal StVisit NoProviderComments E ot v te GA G Effac lucose ed Visit Notes Visit Date: 05/12/18 no vb cramping nasea improved Mary Blackburn MD on 05/12/18 Visit Date: 04/29/18 Confirmed FHT with brief US. Nausea problematic. No VB, LOF. EDITH Sewell on 04/29/18 ACOG First Trimester First Trimester: Desire for , Alcohol, Tobacco Cessation, Illicit/Recreational Drug/Substance Use, Intimate Partner Violence, Barriers to care, Unstable Housing, Communication Barriers, Environmental/Work Hazards, Anticipated Course of Care, Toxoplasmosis Precations, Use of Any medications, Sexual activity, Exercise, Dental Care, Sauna/Hot tub use, Seat Belt use, Childbirth classes/Hospital facilities, , Travel, Indications for US and Screening for Aneuploidy Diagnostics Diagnostics Labs Blood Type O POSITIVE 04/29/18 Antibody Screen NEGATIVE 04/29/18 Hct 37.9 % (37-47) 04/29/18 Hgb 13.1 g/dl (12.0-15.0) 04/29/18 Rubella IgG Antibody 35.4 IU/mL 04/29/18 RPR NONREACTIVE (NONREACTIVE) 04/29/18 Hep Bs Antigen Negative (Negative) 04/29/18 Chlam trachomat DNA PCR Negative (Negative) 04/14/18 N.gonorrhoeae DNA (PCR) Negative (Negative) 04/14/18 Rhogam given: No 09/10/17 Details: HIV: Urine Culture: Sequential Screen: NIPT Screen: Results [id number] Office Urine Glucose Negative Last Edit by Cheryl Chan on 05/12/18 16:20 Office Urine Protein Negative Last Edit by Cheryl Chan on 05/12/18 16:20 Assessment AND Plan Problems 1. Encounter for supervision of other normal in first trimester Z34.81 PRR NAV 11/24/18 PC Barry Gomez Ed 2. 12 weeks gestation of Z3A.12 3. Short interval between pregnancies affecting , antepartum O09.899 Plan ACOG trimester education reviewed and updated. see problem list details for updated plan management information and see below for orders placed at this visit. GA appropriate handout given. Orders Orders: Coding Level of Care Code OB Routine Diagnoses Encounter for supervision of other normal in first trimester Z34.81 Normal : other normal Trimester: first trimester 12 weeks gestation of Z3A.12 Weeks of gestation: 12 weeks Short interval between pregnancies affecting , antepartum O09.899 05/12/18 1624 <Electronically signed by Mary Blackburn MD> Date Mary Blackburn MD Cosigner Signature: Date (if applicable) CC: CBC W/DIFF, AUTOMATED Collected: 04/29/2018 Status: F Source: [facility] 9:41 AM [facility] REPOSITORY TYPE CODE TESTS RESULT OUT OF RANGE REFERENCE UNITS LAB L100.1000 4.4-11.0 K/mm3 Normal WBC 7.5 LAB L100.1200 4.2-5.4 M/mm3 Normal RBC 4.28 LAB L100.1300 12.0-15.0 g/dl Normal HGB 13.1 LAB L100.1400 37-47 % Normal HCT 37.9 LAB L100.1500 81-99 fL Normal MCV 88.6 LAB L100.1600 27.0-32.0 pg Normal MCH 30.6 LAB L100.1700 32-36 g/gl Normal MCHC 34.6 LAB L100.1810 11.6-14.6 % Normal RDW CV 13.2 LAB L100.1820 35.1-43.9 fl Normal RDW SD 42.1 LAB L100.1900 150-450 K/mm3 Normal PLT 247 LAB L100.2000 6.2-12.0 fl Normal MPV 9.3 LAB L100.2100 47-70 % Normal NEUT% 67.3 LAB L100.2200 19-41 % Normal LY% 26.7 LAB L100.2300 0-10 % Normal MONO% 3.3 LAB L100.2400 0-5 % Normal EO% 2.3 LAB L100.2500 0-1 % Normal BASO% 0.1 LAB L100.2550 0.0-0.9 % Normal IM GRAN % 0.300 Result Comment: IG% - Immature Granulocytes (promyelocytes, myelocytes and metamyelocytes) > 1% indicates that a LEFT SHIFT is Present. LAB L100.2620 2.0-7.7 X10 3/uL Normal Absolute Neut 5.0 LAB L100.2720 0.83-4.51 X10 3/ul Normal Absolute Lymph 2.00 Performed By: #### L100.0100, B101.7450 #### [facility] [address] [place], [place], [id number] TYPE AND SCREEN Collected: 04/29/2018 Status: F Source: [facility] 9:41 AM [facility] REPOSITORY Order Comment: Reason for Type AND Screen/Red Cells: TYPE CODE TESTS RESULT OUT OF RANGE REFERENCE UNITS LAB B10.0800 O Normal BLOOD TYPE GEL POSITIVE LAB B100.4000 Normal Antibody NEGATIVE Screen Performed By: #### L100.0100, B101.7450 #### [facility] [address], [place], [address] HEPATITIS B SURFACE Collected: 04/29/2018 Status: F Source: [facility] AG 9:41 AM [facility] REPOSITORY TYPE CODE TESTS RESULT OUT OF RANGE REFERENCE UNITS LAB L3100.0400 Negative Normal HB Negative SURF AG Result Comment: Performed at: [facility] [id number] Immunology Teacher: Sukumar Jin PhD, Phone: [phone] Performed By: #### L3100.0390 #### [facility] (refer to report for specific site) refer to report for address and phone number #### L509.4000, L3890.6005, L700.5000 #### [facility] [address] [place], [place], [id number] RUBELLA IGG Collected: 04/29/2018 Status: F Source: [place] 9:41 AM [facility] REPOSITORY TYPE CODE TESTS RESULT OUT OF RANGE REFERENCE UNITS LAB L509.4000 IU/mL Normal Rubella IgG 35.4 Result Comment: Antibody results Interpretation of Immune Status < 5 IU/ml Presumed Non-immune 5 - < 10 IU/ml Equivocal > or = 10 IU/ml Presumed Immune Performed By: #### L3100.0390 #### [facility] (refer to report for specific site) refer to report for address and phone number #### L509.4000, L3890.6005, L700.5000 #### [facility] [address] [place], [address] HIV - [facility] Collected: 04/29/2018 Status: F Source: [place] 9:41 AM [facility] REPOSITORY TYPE CODE TESTS RESULT OUT OF RANGE REFERENCE UNITS LAB L3890.6005 Nonreactive Normal HIV - [facility] Non-Reactive Performed By: #### L3100.0390 #### [facility] (refer to report for specific site) refer to report for address and phone number #### L509.4000, L3890.6005, L700.5000 #### [facility] [place], [address] RAPID PLASMIN REAGIN Collected: 04/29/2018 Status: F Source: [place] (RPR) 9:41 AM [facility] REPOSITORY TYPE CODE TESTS RESULT OUT OF REFERENCE UNITS RANGE LAB L700.5000 NONREACTIVE NONREACTIVE Normal RPR Performed By: #### L3100.0390 #### [facility] (refer to report for specific site) refer to report for address and phone number #### L509.4000, L3890.6005, L700.5000 #### [facility] [address] [place], [address] TOP TAPER MACHINE OFFICE VISIT Observed: 04/29/2018 Status: F Source: [facility] REPORT 9:26 AM [facility] [place] [address] [place], [place] [address]. [address] [place] [address] OFFICE VISIT Date of Service: 04/29/18 MR#: [id number] Acct: [id number] Name: YADIRA BOLAÑOS Rep #: [id number] : 1990 Provider: TEODORA Canales Age/Sex: 28/F [place] [facility] [place] Status: Signed Intake Vital Signs04/29/18 Height 5 ft 4 in 04/29/18 Weight: 213 lb 2 oz 04/29/18 Body Mass Index (BMI) 36.6 04/29/18 Blood Pressure 121/76 Intake Visit Reasons: 12 WEEK OB/REPEAT SCAN 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 Is patient in pain?: No Allergies No Known Allergies Allergy (Verified 04/29/18 09:02) Medications Vit No.130/Iron/FA [ Vitamins] 1 tab PO DAILY 09/29/15 [History Confirmed 04/29/18] levothyroxine 25 mcg tablet 50 mcg PO DAILY tab 09/04/17 [History Confirmed 04/29/18] Thyroid,Pork [[place] Thyroid] 30 mg PO DAILY 09/07/17 [History Confirmed 04/29/18] Naproxen [Naprosyn] 250 - 500 mg PO Q8H PRN PRN #30 tab 09/10/17 [Rx Confirmed 04/29/18] sertraline 100 mg tablet 100 mg PO QDAY #90 tab 01/16/18 [Rx Confirmed 04/29/18] ondansetron HCl 4 mg tablet 4 mg PO Q6H PRN #60 tab 04/29/18 [Rx Confirmed 04/29/18] Last Menstral Period: 12/08/16 Zika: Zika virus screening: Negative : No PFSH PFSH Medical History Hypothyroid (Acute) Post depression (Acute) Family History Grandfather Diabetes Father Hypertension Social History number of children: 2 current occupational status: employed current occupation: [employer] Smoking Status: Never smoker alcohol intake: never substance use type: does not use caffeine: Yes Type: tea, coffee what type of physical activity do you participate in: none seatbelt use: always do you feel safe at home: Yes additional social history: Ed-Ayala Pregancy History 2 Elective abortions Hx Para 2 Spontaneous abortions Past Pregnancies Del. DateName GA/Weeks Outcome Route Bth WeighInfant GeLabor LgtAnesthesiDel LocatProvider FOB t n h a n HPI 12 WEEK OB/REPEAT SCAN: Details: YADIRA BOLAÑOS is a 28 year old who presents for routine OB visit. OB Visit NAV Calculator Estimated Delivery Date 11/24/18 Based on Ultrasound Date 04/14/18 Current WG 10w 1d Number 1 Initial Weight: Not Recorded Date Weight BP Urine PrFHR FuHt Pres MoCTX DilationFetal StVisit NoProviderComments E ot v te GA G Effac lucose ed Visit Notes Visit Date: 04/29/18 Confirmed FHT with brief US. Nausea problematic. No VB, LOF. EDITH Sewell on 04/29/18 ACOG First Trimester First Trimester: Desire for , Alcohol, Tobacco Cessation, Illicit/Recreational Drug/Substance Use, Intimate Partner Violence, Barriers to care, Unstable Housing, Communication Barriers, Environmental/Work Hazards, Anticipated Course of Care, Toxoplasmosis Precations, Use of Any medications, Sexual activity, Exercise, Dental Care, Sauna/Hot tub use, Seat Belt use, Childbirth classes/Hospital facilities, , Travel, Indications for US and Screening for Aneuploidy Diagnostics Diagnostics Labs Blood Type O POSITIVE 09/07/17 Antibody Screen NEGATIVE 09/07/17 Hct 37.4 % (37-47) 09/07/17 Hgb 12.5 g/dl (12.0-15.0) 09/07/17 Chlam trachomat DNA PCR Negative (Negative) 04/14/18 N.gonorrhoeae DNA (PCR) Negative (Negative) 04/14/18 Glucose 1 Hr 50 gm 121 mg/dL (70-140) 08/16/17 Group B Strep DNA Negative (Negative) 08/21/17 Rhogam given: No 09/10/17 Details: HIV: Urine Culture: Sequential Screen: NIPT Screen: Results [id number] Office Urine Glucose Negative Last Edit by Robyn Cheng on 04/29/18 09:23 Office Urine Protein Negative Last Edit by Robyn Cheng on 04/29/18 09:23 Assessment AND Plan Problems 1. Encounter for supervision of other normal in first trimester Z34.81 NAV 11/24/18 PC Barry Gomez Ed 2. Short interval between pregnancies affecting , antepartum O09.899 3. 10 weeks gestation of Z3A.10 Plan Orders placed: NOB labs today Confirm FHT with US. Reviewed of labor precautions, movement/kick counts ACOG trimester education reviewed and updated See problem list details for updated plan of care Gestational age appropriate handout given RTO: 2 weeks repeat scan with [facility] Orders Orders: Medications New: Coding Level of Care Code OB Routine Diagnoses Encounter for supervision of other normal in first trimester Z34.81 Normal : other normal Trimester: first trimester Short interval between pregnancies affecting , antepartum O09.899 10 weeks gestation of Z3A.10 04/29/18 0926 <Electronically signed by Billie SHARMA> Date Billie SHARMA Cosigner Signature: Date (if applicable) CC: TOP TAPER MACHINE OFFICE VISIT Observed: 04/15/2018 Status: F Source: [facility] REPORT 9:24 AM [facility] [address] [place] [address]. [address] [place], [place] [address] OFFICE VISIT Date of Service: 04/14/18 MR#: [id number] Acct: [id number] Name: YADIRA BOLAÑOS Rep #: [id number] : 1990 Provider: Mary Blackburn MD Age/Sex: 28/F Location[place] [facility] [place] Status: Signed Intake Vital Signs04/14/18 Body Mass Index (BMI) 36.2 Intake Visit Reasons: 7-8 weeks? new OB Mechanic Chief Required: No Accompanied by: Is patient in pain?: No Allergies No Known Allergies Allergy (Verified 04/14/18 16:21) Medications Vit No.130/Iron/FA [ Vitamins] 1 tab PO DAILY 09/29/15 [History Confirmed 04/14/18] levothyroxine 25 mcg tablet 50 mcg PO DAILY tab 09/04/17 [History Confirmed 04/14/18] Thyroid,Pork [[place] Thyroid] 30 mg PO DAILY 09/07/17 [History Confirmed 04/14/18] Naproxen [Naprosyn] 250 - 500 mg PO Q8H PRN PRN #30 tab 09/10/17 [Rx Confirmed 04/14/18] sertraline 100 mg tablet 100 mg PO QDAY #90 tab 01/16/18 [Rx Confirmed 04/14/18] Last Menstral Period: 12/08/16 Zika: Zika virus screening: Negative PFSH PFSH Medical History Hypothyroid (Acute) Post depression (Acute) Family History Grandfather Diabetes Father Hypertension Social History number of children: 2 current occupational status: employed current occupation: [employer] Smoking Status: Never smoker alcohol intake: never substance use type: does not use caffeine: Yes Type: tea, coffee what type of physical activity do you participate in: none seatbelt use: always do you feel safe at home: Yes additional social history: Ed-Ayala Pregancy History 2 Elective abortions Hx Para 2 Spontaneous abortions Past Pregnancies Del. DateName GA/Weeks Outcome Route Bth WeighInfant GeLabor LgtAnesthesiDel LocatProvider FOB t n h a n HPI 7-8 weeks? new OB: Details: YADIRA BOLAÑOS is a 28 year old who presents for New OB visit. OB Visit NAV Calculator Estimated Delivery Date 11/24/18 Based on Ultrasound Date 04/14/18 Current WG 8w 1d Number 1 Comments: us done iup fht seen 160 8w0d small subchorionic hemorrhage Menstrual History Last Menstral Period: 12/08/16 Reported LMP: definite Normal amount/duration: Yes On hormonal BC at conception: No Antepartum Record Genetic Screening: Congenital Heart Defect: Other, Neural Tube Defect: Other, Hemoglobinopathy Or Carrier: Other, Cystic Fibrosis: Other, Chromosome Abnormality: Other, Eloy-Sachs: Other, Hemophilia: Other, Intellectual Disability/Autism: Other, Recurrent Loss/Stillbirth: Other, Other Structural Defect: Other, Other Genetic Disease: Other, Maternal Metabolic Disorder: Other Infection History: Live with someone with TB or Exposed to TB: No, Patient or Partner has history of Genital Herpes: No, Rash or Viral illness since last mentrual period: No, Prior GBS-Infected child: No, History of STD: No, HIV Infection: No, History of Hepatitis: No, Recent travel outside of [place]: No, Concern for Hep exposure: No, Varicella immune: Yes Medical History Medical History: Positive: Depression/ depression, Thyroid dysfunction, Negative: Diabetes, Hypertension, Heart disease, Auto-immune disorder, Kidney disease/UTI, Neurologic/epilepsy, Psychiatric, Hepatitis/liver disease, Varicosities/phlebitis, Trauma/domestic violence, History of blood transfusions, D (Rh) Sensitized, Pulmonary (e.g.,TB,Asthma), Seasonal allergies, Drug/latex allergies/reactions, Breast, Computer Graphic Designer surgery, Operations/hospitalizations, Anesthetic complications, History of abnormal pap, Uterine anomaly/velma, Infertility, Anti-retroviral treatment, Relevant family history, Other ACOG First Trimester First Trimester: Desire for , Alcohol, Tobacco Cessation, Illicit/Recreational Drug/Substance Use, Intimate Partner Violence, Barriers to care, Unstable Housing, Communication Barriers, Environmental/Work Hazards, Anticipated Course of Care, Nurtrition and weight gain, Toxoplasmosis Precations, Use of Any medications, Sexual activity, Exercise, Dental Care, Sauna/Hot tub use, Seat Belt use, Childbirth classes/Hospital facilities, , Travel, Indications for US and Screening for Aneuploidy ROS Const Denies fever(s), Reports system reviewed and no additional complaints, except as docu, Reports fatigue Eyes Reports system reviewed and no additional complaints, except as docu ENT Reports system reviewed and no additional complaints, except as docu Card Denies chest pain, Denies shortness of breath Resp Reports system reviewed and no additional complaints, except as docu, Denies shortness of breath, Denies cough GI Reports nausea, Denies abdominal pain Reports system reviewed and no additional complaints, except as docu Musc Reports system reviewed and no additional complaints, except as docu Skin/Breast Reports system reviewed and no additional complaints, except as docu Neuro Yes system reviewed and no additional complaints, except as docu Psych Reports system reviewed and no additional complaints, except as docu Endo Reports fatigue, Reports system reviewed and no additional complaints, except as docu Exam Const General: healthy appearing, comfortable, no acute distress Orientation: alert HENSD Head: normal to inspection, atraumatic, normocephalic Ears: external ears normal, hearing grossly normal bilaterally Nose: nares normal, external nose normal Mouth: oral mucosae normal Teeth and gingiva: dentition normal Eyes General: appearance normal, both eyes and all related structures Neck Neck: no lymphadenopathy, supple, normal visual inspection Thyroid: thyroid normal Resp Effort AND Inspection: normal respiratory effort GI Inspection: normal to inspection Palpation: soft, no hepatosplenomegaly General: bladder normal to palpation External Female Exam: normal external appearance, normal appearance of the urethra Urethra: normal appearance of the urethra Speculum Exam - Vagina: normal appearance of the vagina, normal vaginal discharge Speculum Exam - Cervix: normal appearance of the cervix Bimanual Exam- Vagina AND Uterus: bladder normal to palpation, normal bimanual exam, uterus non-tender, other Bimanual Exam- Adnexa, other: adnexae non-tender Skin General: no rashes or lesions noted Neuro Motor: muscle tone normal throughout, no movement abnormalities noted Extrem General: normal to inspection, full ROM Assessment AND Plan Problems 1. Short interval between pregnancies affecting , antepartum O09.899 2. Encounter for supervision of other normal in first trimester Z34.81 NAV 11/24/18 Barry Infante Ed Plan Patient oriented to practice and discussed care expectations and screenings. ACOG book offered to patient. labs and 19-20 week anatomy ultrasound ordered. see problem list details for plan information. Genetic screening offered to patient and patient chose: discussed Orders Orders: Supplemental Info ACOG book given and patient encouraged to read about nutrition, exercise, weight gain, and food avoidance in . Coding Level of Care Code OB Routine Diagnoses Short interval between pregnancies affecting , antepartum O09.899 Encounter for supervision of other normal in first trimester Z34.81 Normal : other normal Trimester: first trimester 07/17/18 0924 <Electronically signed by Mary Blackburn MD> Date Mary Blackburn MD Cosigner Signature: Date (if applicable) CC: CT/NG [facility] BY PCR Collected: 04/14/2018 Status: F Source: [facility]A 6:08 PM [facility] REPOSITORY TYPE CODE TESTS RESULT OUT OF RANGE REFERENCE UNITS LAB L8200.2100 Negative Normal Chlam Negative Trac PCR LAB L8200.2200 Negative Normal NG by Negative PCR Performed By: #### L8200.2000 #### [facility] [address] [facility] [place], [address] Observed: 04/14/2018 Status: F Source: [facility] CULTURE, URINE 6:08 PM [facility] REPOSITORY Urine Culture Below infection level. ORGANISM 1: Mixed Gram Positive Organisms [place] Count <1000 MIX CULTURE Mixed contaminants. Submit a new specimen if indicated. Performed By: #### M100.0650 #### [facility] [address] [facility] [place], [address] PAP I-G W/RFX Collected: 04/14/2018 Status: F Source: [facility] HRHPV-APTIMA 4:20 PM [facility] REPOSITORY Order Comment: CYTOLOGY INFORMATION: - CLINICAL INFORMATION: ANNUAL - DATE LMP/MENOPAUSE: LMP/ NOT GIVEN - COLLECTION VIAL: Thin Prep Vial - DCS ENGINEER SOURCE: CERVICAL - COLLECTION TECHNIQUE: CX BROOM ONLY Specimen Comment: [id number] Specimen Comment: No. of containers..01 ThinPrep Vial TYPE CODE TESTS RESULT OUT OF RANGE REFERENCE UNITS LAB L7400.0800 . Normal DIAGN Comment Result Comment: NEGATIVE FOR INTRAEPITHELIAL LESION AND MALIGNANCY. LAB L7400.0900 . Normal ADEQ Comment Result Comment: Satisfactory for evaluation. Endocervical and/or squamous metaplastic cells (endocervical component) are present. LAB L7400.1400 . Normal PERFORM Comment Result Comment: Ruthie Montano, Spring Assembler Supervisor (ASCP) LAB L7400.2575 . Normal TEST METHOD Comment Result Comment: This liquid based ThinPrep(R) pap test was screened with the use of an image guided system. LAB L7400.2600 . Normal . COMM LAB L7400.2700 . Normal PAPSMR Comment Result Comment: The Pap smear is a screening test designed to aid in the detection of premalignant and malignant conditions of the uterine cervix. It is not a diagnostic procedure and should not be used as the sole means of detecting cervical cancer. Both false-positive and false-negative reports do occur. LAB L7400.2800 . Normal HPV RFLX Comment Result Comment: The HPV DNA reflex criteria were not met with this specimen result therefore, no HPV testing was performed. Performed at: [facility] [id number] Immunology Teacher: Mary Carter MD, Phone: [phone] Performed By: #### L7400.0353 #### [facility] (refer to report for specific site) refer to report for address and phone number HCG TITER QUANT., Collected: 03/24/2018 Status: F Source: [place] SERUM 11:11 AM [facility] REPOSITORY TYPE CODE TESTS RESULT OUT OF RANGE REFERENCE UNITS LAB L700.8000 <9 non-preg mIU/mL High HCG 1702 QUANT. Performed By: #### L700.8000 #### [facility] [address] [facility] [place], [place], [address] FREE T3 Collected: 03/24/2018 Status: F Source: [place] 11:11 AM [facility] REPOSITORY Order Comment: SEND RESULTS OF TSH,FT3,T4F TO RUTH DEJESUS,NANCY @[id number] TYPE CODE TESTS RESULT OUT OF RANGE REFERENCE UNITS LAB L501.66923 2.18-3.98 pg/mL Normal FREE T3 3.3 Performed By: #### L501.03474, L501.9520, L506.0400 #### [facility] [address] [facility] [place], [address] THYROID STIM HORMONE Collected: 03/24/2018 Status: F Source: [facility] (TSH) 11:11 AM [facility] REPOSITORY Order Comment: SEND RESULTS OF TSH,FT3,T4F TO RUTH DEJESUS CNP @[id number] TYPE CODE TESTS RESULT OUT OF RANGE REFERENCE UNITS LAB L501.9520 0.358-3.74 uIU/mL Normal TSH 0.53 Performed By: #### L501.09684, L501.9520, L506.0400 #### [facility] [address] [place], [address] T4 FREE DIRECT Collected: 03/24/2018 Status: F Source: [facility] 11:11 AM [facility] REPOSITORY Order Comment: SEND RESULTS OF TSH,FT3,T4F TO RUTH DEJESUS CNP @[id number] TYPE CODE TESTS RESULT OUT OF RANGE REFERENCE UNITS LAB L506.0400 0.76-1.46 ng/dL Normal T4 FREE 0.95 DIRECT Performed By: #### L501.94578, L501.9520, L506.0400 #### [facility] [address] [place], [address] HCG TITER QUANT., Collected: 03/19/2018 Status: F Source: [place] 11:06 AM [facility] REPOSITORY TYPE CODE TESTS RESULT OUT OF RANGE REFERENCE UNITS LAB L700.8000 <9 non-preg mIU/mL High HCG 242 QUANT. Performed By: #### L700.8000 #### [facility] [address] [place], [address] PROGRESS Observed: 03/04/2018 Status: COMPLETED Source: [place] 2:17 PM [facility] REPOSITORY HNO ID: [id number] Author: Kimberlee (Board Attendant)(Hist) Kristine Service: (none) Author Type: Nurse Practitioner Type: Progress Notes Filed: 07/31/2018 6:02 PM Note Text: [facility] [place] [address] FIRST CARE REPORT Patient: YADIRA BOLAÑOS,AILEEN-KIMBERLEE Driver C.N.P. [id number] [age] F Status: REG POV FC Date of Service: 03/04/18 Report Date AND Time: 03/04/18 1417 HPI History Of Present Illness Chief Complaint Hand Problem/Injury (FC) CC History Pt is a reliable 27 year old female here today for a 2 day history of joint and finger pain. States the pain started in her MCP's joints of the right hand. States she tried to crack her knuckles but the pinky knuckle would not crack. States she was also pulling weeds. She states she woke today with right pinky pain and bruising. States the other fingers and joints have improved. States the swelling has improved but the pinky is still swollen with bruising. Ibuprofen and ice with some relief. Nothing makes it worse. No other concerns at this time. Vital Signs Vital Signs First Last Result Date Time Result Date Time Pulse Ox 98 03/04 1352 98 03/04 1352 B/P 112/73 06/05 1352 112/73 / 1352 Temp 89.1 03/04 1352 89.1 / 1352 Pulse 82 /05 1352 82 06/05 1352 Resp 20 03/04 1352 20 03/04 1352 Medications Reported Medications Levothyroxine Sodium* (Synthroid*) 25 MCG PO QDAY@0630 Thyroid* ([place] Thyroid*) 30 MG PO QDAY@0630 Sertraline Hcl* (Zoloft*) 100 MG PO QDAY Allergies Coded Allergies: No Known Drug Allergies (03/04/18) Patient Health History Medical Problems Depression Finger pain, right Hypothyroid Surgical Problems No pertinent past surgical history Social History Problems Nonsmoker OARRS Accessed and Reviewed NO LNMP: OVER A YR Review of Systems General Denies: Body Aches, Fever, Chills. Skin No: Rash. Heart/Cardiovascular Denies: Other (cardio negative). Physical Examination General Alert, Oriented X3, Non-toxic Apperance, Cooperative Skin R[place]o, Warm, and Dry, Well Hydrated Head Normocephalic, Atraumatic Heart/Cardiovascular regular rate Respiratory breathing comfortably Musculoskeletal right pinky finger with posterior bruising noted. Mild swelling. Warm to the touch. Radial and Ulnar pulses 3+ intact. Good ROM of MCP, DIP, and PIP. Cap refill <2 seconds brisk. No pain with palpation. Remaining digits and joints on the hadn WIN Impression And Plan Special Instructions o Follow up with your Primary Care Physician in 2-3 days if no improvement in your condition. o Call or return to [facility] if you experience problems relating to your visit. All medications and their side effects were explained to the patient and were understood. At home instructions were explained to the patient and were understood. Report to the [facility] Emergency Department if any further problems occur Or Call . - Take 600mg Ibuprofen (3 over the counter tablets) 3-4 times daily for the next 2-3 days - Mild compression, ice, and elevation - Report to ER if numbness, dicoloration, or swelling worsens Diagnosis 1. Finger pain, right EXCUSE SLIP Period Covered Today 03/04/18 To Date 03/05/18 <Electronically signed by Aric CANALESNOmarP.> 03/04/18 1426 SARAH NORMAN.N.P. << Signature on File>> Reported By: SARAH NORMANN.POmar Signed By: SARAH NORMANN.POmar Tests performed at: [address] [address] PROGRESS Observed: 03/04/2018 Status: COMPLETED Source: [place] 2:16 PM [facility] [place] REPOSITORY HNO ID: [id number] Author: Kimberlee (Board Attendant)(Hist) Kristine Service: (none) Author Type: Nurse Practitioner Type: Progress Notes Filed: 07/31/2018 6:02 PM Note Text: FIRST CARE DEPARTMENT [facility] [address] [place] [address] To Whom This May Concern: YADIRA BOLAÑOS has been seen at [facility] on 03/04/18. Please excuse her SCHOOL / WORK obligations due to her ailment for the period indicated below. EXCUSE SLIP Period Covered Today 03/04/18 To Date 03/05/18 <Electronically signed by Aric CANALESN.P.> 03/04/18 1417 SARAH NORMANNStuart << Signature on File>> Reported By: SARAH NORMANNOmarPOmar Signed By: SARAH NORMANNStuart Tests performed at: [address] [address] PROGRESS Observed: 02/14/2018 Status: COMPLETED Source: [place] 1:38 PM [facility] [place] REPOSITORY HNO ID: [id number] Author: Provider [facility] Service: (none) Author Type: Physician Type: Progress Notes Filed: 07/31/2018 5:32 PM Note Text: THE [address] [address] OCCUPATIONAL MEDICINE / OCCUPATIONAL MEDICINE REPORT Patient: YADIRA BOLAÑOS WW-JESSICA L F.NOmarPOmar [id number] 90 27 F Status: REG CLI OCC OCCUPATIONAL MEDICINE PROGRESS NOTE DATE OF SERVICE 02/13/2018 DATE OF INJURY 02/06/2018 CLAIM NUMBER [id number] HISTORY OF PRESENT ILLNESS This is a 27-year-old female who presents to the office for work related injury. 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 The patient arrives today for reevaluation. States that she is doing much better, hand is pretty much back to her normal. Denies any pain. Has been utilizing Augmentin that was written at last visit without difficulty. Has not required any over the counter anti-inflammatories for pain or inflammation in the last 48 hours. Denies any numbness or tingling to her right hand. Reports full range of motion. Last tetanus vaccination 2015. Denies any pain. DRUG ALLERGIES No known drug allergies. MEDICATIONS Zoloft, [place] Thyroid, levothyroxine. PAST MEDICAL HISTORY Anxiety, hypothyroidism. PAST SURGICAL HISTORY None listed. SOCIAL HISTORY The patient is . Nonsmoker. Weekly alcohol use. REVIEW OF SYSTEMS General: Denies any fever, chills, general malaise, excessive fatigue or energy. Lung and chest: Denies any shortness of breath with or without exertion. Cardiovascular: Denies any chest pain, palpitations. Musculoskeletal: Denies any difficulty with range of motion of all joints. Integumentary: The patient reports well healing puncture wounds to her right hand. Denies any swelling, redness or drainage from sites. Neurological: Denies any seizures, strokes, abnormalities in sensation, coordination or inability to concentrate. OBJECTIVE DATA This is a 27-year-old female, height 5 feet 4 inches, weight 200 pounds. Blood pressure 115/79, temperature 98.2 degrees Fahrenheit, pulse 73, respirations 16. The patient is alert and oriented x3, pleasant, cooperative, in no acute distress. Skin pink, warm, dry. There are four 2 mm puncture wounds noted to volar aspect of right hand primarily around palm region healing quite nicely. No drainage or erythema present. There is a 4 mm puncture wound noted to the dorsal aspect of right hand/wrist at the junction of hand and wrist location healing quite nicely. No drainage or erythema present. Full active range of motion noted to right wrist. Supination 90 degrees, pronation 90 degrees, flexion 90 degrees, extension 90 degrees, radial deviation 15 degrees, ulnar deviation 45 degrees. The patient is able to make the letter C with utilizing her thumb and each of her right phalanges. Profundus and superficialis test of each right phalange and thumb within normal limits. Had the patient touch thumb and each of the right phalanges together and hold strength, attempted to pass my finger through to check strength of phalanges. Unable to pass my finger through. Strong strength noted. The patient was able to hold upon pressure and counterpressure of each right phalange. Biztalk Developer bilaterally strong. Capillary refill brisk of each right phalange. Radial pulse 2+. Sensation intact. ASSESSMENT Dog bite, right hand. PLAN Medco-14 completed with no work restrictions. Encouraged ice to puncture wound sites. Instructed the patient to finish prescription for Augmentin, to notify [facility] office with any signs and symptoms of infection such as fever, chills, redness or drainage at puncture wound site. Instructed the patient to follow up here at [facility] on an as needed basis. The patient verbally expressed understanding and agrees with plan of care. <Electronically signed by Yuri HORVATH> TERRY OBANDO cc: << Signature on File>> Reported By: TERRY OBANDO Signed By: RENNY OBANDO Tests performed at: [address] [address] OCCUPATIONAL MEDICINE Observed: 02/14/2018 Status: F Source: [place] REPORT 1:38 PM [facility] REPOSITORY [place] [address] OCCUPATIONAL MEDICINE / OCCUPATIONAL MEDICINE REPORT Patient: YADIRA BOLAÑOS TERRY OBANDONStuart [id number] [age] F Status: REG CLI OCC OCCUPATIONAL MEDICINE PROGRESS NOTE DATE OF SERVICE 02/13/2018 DATE OF INJURY 02/06/2018 CLAIM NUMBER [id number] HISTORY OF PRESENT ILLNESS This is a 27-year-old female who presents to the office for work related injury. 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 The patient arrives today for reevaluation. States that she is doing much better, hand is pretty much back to her normal. Denies any pain. Has been utilizing Augmentin that was written at last visit without difficulty. Has not required any over the counter anti-inflammatories for pain or inflammation in the last 48 hours. Denies any numbness or tingling to her right hand. Reports full range of motion. Last tetanus vaccination 2015. Denies any pain. DRUG ALLERGIES No known drug allergies. MEDICATIONS Zoloft, [place] Thyroid, levothyroxine. PAST MEDICAL HISTORY Anxiety, hypothyroidism. PAST SURGICAL HISTORY None listed. SOCIAL HISTORY The patient is . Nonsmoker. Weekly alcohol use. REVIEW OF SYSTEMS General: Denies any fever, chills, general malaise, excessive fatigue or energy. Lung and chest: Denies any shortness of breath with or without exertion. Cardiovascular: Denies any chest pain, palpitations. Musculoskeletal: Denies any difficulty with range of motion of all joints. Integumentary: The patient reports well healing puncture wounds to her right hand. Denies any swelling, redness or drainage from sites. Neurological: Denies any seizures, strokes, abnormalities in sensation, coordination or inability to concentrate. OBJECTIVE DATA This is a 27-year-old female, height 5 feet 4 inches, weight 200 pounds. Blood pressure 115/79, temperature 98.2 degrees Fahrenheit, pulse 73, respirations 16. The patient is alert and oriented x3, pleasant, cooperative, in no acute distress. Skin pink, warm, dry. There are four 2 mm puncture wounds noted to volar aspect of right hand primarily around palm region healing quite nicely. No drainage or erythema present. There is a 4 mm puncture wound noted to the dorsal aspect of right hand/wrist at the junction of hand and wrist location healing quite nicely. No drainage or erythema present. Full active range of motion noted to right wrist. Supination 90 degrees, pronation 90 degrees, flexion 90 degrees, extension 90 degrees, radial deviation 15 degrees, ulnar deviation 45 degrees. The patient is able to make the letter C with utilizing her thumb and each of her right phalanges. Profundus and superficialis test of each right phalange and thumb within normal limits. Had the patient touch thumb and each of the right phalanges together and hold strength, attempted to pass my finger through to check strength of phalanges. Unable to pass my finger through. Strong strength noted. The patient was able to hold upon pressure and counterpressure of each right phalange. Biztalk Developer bilaterally strong. Capillary refill brisk of each right phalange. Radial pulse 2+. Sensation intact. ASSESSMENT Dog bite, right hand. PLAN Medco-14 completed with no work restrictions. Encouraged ice to puncture wound sites. Instructed the patient to finish prescription for Augmentin, to notify [facility] office with any signs and symptoms of infection such as fever, chills, redness or drainage at puncture wound site. Instructed the patient to follow up here at [facility] on an as needed basis. The patient verbally expressed understanding and agrees with plan of care. <Electronically signed by Yuri HORVATH> TERRY OBANDO cc: << Signature on File>> Reported By: TERRY OBANDO Signed By: RENNY OBANDO Tests performed at: [place] [address] PROGRESS Observed: 02/10/2018 Status: COMPLETED Source: [place] 2:49 PM [facility] REPOSITORY [facility] ID: [id number] Author: Provider [facility] Service: (none) Author Type: Physician Type: Progress Notes Filed: 07/31/2018 5:24 PM Note Text: THE [place] [address] OCCUPATIONAL MEDICINE / OCCUPATIONAL MEDICINE REPORT Patient: YADIRA BOLAÑOS TERRY OBANDO [id number] [age] F Status: REG CLI [facility] OCCUPATIONAL MEDICINE PROGRESS NOTE DATE OF SERVICE 02/06/2018 DATE OF INJURY 02/06/2018 HISTORY OF PRESENT ILLNESS This is a 27-year-old female who presents to office for a work related injury. 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 The patient states while attempting to sedated a male Anguillan Lima weighing approximately 80 pounds, for a procedure the dog became aggressive. The patient states she attempted to muzzle the dog and the dog bit her right hand three times. 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 The patient states the dog was flagged as aggressive prior to incident. The patient came to [facility] for evaluation. States she irrigated puncture wound sites with copious amounts of Surgi-Clens prior to arrival. The patient has multiple puncture wounds to the right hand. Reports painful range of motion. Denies any sensory loss. Rates her pain of a 3 on 0-10 scale. The patient is right hand dominant. Last tetanus vaccination 2016. Contacted [facility] and spoke to receptionist nurse regarding Shant lima's vaccination status. Plastering Supervisor informed me rabies is up to date. However, the Shant Lima was due for distemper vaccination. DRUG ALLERGIES No known drug allergies. MEDICATIONS Zoloft, [place] Thyroid, levothyroxine. PAST MEDICAL HISTORY Anxiety, hypothyroidism. PAST SURGICAL HISTORY None listed. SOCIAL HISTORY The patient is . Nonsmoker. Weekly alcohol use. REVIEW OF SYSTEMS General: Denies any fever, chills, general malaise, excessive fatigue or energy. Lung and chest: Denies any pain with inspiration, expiration, shortness of breath with or without exertion, cough or dyspnea. Cardiovascular: Denies any chest pain, palpitations. Musculoskeletal: The patient reports painful range of motion to right wrist and hand. Integumentary: The patient reports multiple puncture wound to right hand. Neurological: Denies any seizures, strokes, abnormalities in sensation, coordination or inability to concentrate. OBJECTIVE DATA This is a 27-year-old female, height 5 feet 4 inches, weight 200 pounds, blood pressure 115/81, temperature 98.1 degrees Fahrenheit, pulse 80, respirations 18. The patient is alert and oriented x3, pleasant, cooperative in no acute distress. Focal exam of right hand: Skin pink, warm, dry. There are four 2 mm puncture wounds noted to volar aspect of right hand primarily around palm region. No drainage nor erythema present to site. There is a pinpoint abrasion/puncture wound noted to dorsal aspect of right hand at the juncture of right thumb and index finger. There is a 4 mm puncture wound noted to the dorsal aspect of right hand/wrist at the junction of hand and wrist location. No drainage or erythema present to any of the puncture wounds or abrasions sites. Range of motion of right wrist: Supination 90 degrees, pronation 90 degrees, wrist flexion 70 degrees, extension 60 degrees, radial deviation 15 degrees, ulnar deviation 35 degrees. With passive range of motion right wrist flexion 80 degrees, extension 80 degrees. The patient is able to make the letter C utilizing her thumb and each of her right phalanges. Profundus and superficialis test of each right phalanges and thumb within normal limits. Had the patient touch thumb and each of the right phalanges together and hold strength, attempted to pass my finger through to check strength of each phalanges. The patient was able to hold upon pressure and counterpressure, was not able to pass my finger through to determine strong strength. Capillary refill brisk of each right phalange. Radial pulse 2+. Sensation intact. PROCEDURE NOTE Cleansed the patient's puncture wound sites with surgical cleanser and water. Applied triple antibiotic ointment. Wrapped with gauze wrap. ASSESSMENT Dog bite right hand. PLAN Medco-14 completed with work restrictions. Instructed the patient maximum lift and carry was 5 pounds with right hand until 02/10/2018. Maximum push or pull 10 pounds with right hand until 02/10/2018. Educational pamphlet regarding signs and symptoms of infection and when to be mindful and notify [facility] was given. Educational pamphlet on animal bites was given. Instructed the patient to wash puncture wound site at least twice a day with soap and water. May apply triple antibiotic ointment. Instructed to keep hand covered with either gauze, band-aid or glove until all puncture sites are healed. Instructed patient to utilize over the counter ibuprofen, Tylenol for pain and inflammation measures, take as directed. Encouraged RICE therapy. Prescription for Augmentin was given. X-ray completed in [facility] office of right hand. No obvious fracture or dislocation noted. We will have the patient return on 02/13/2018 at 1:00 p.m. The patient is aware to contact [facility] with any questions or concerns prior to scheduled appointment. The patient verbally expressed understanding and agrees with plan of care. <Electronically signed by Yuri HORVATH> TERRY OBANDO cc: << Signature on File>> Reported By: TERRY OBANDONStuart Signed By: RENNY OBANDONStuart Tests performed at: [place] [address] OCCUPATIONAL MEDICINE Observed: 02/10/2018 Status: F Source: [place] REPORT 2:49 PM [facility] REPOSITORY THE [address] [address] OCCUPATIONAL MEDICINE / OCCUPATIONAL MEDICINE REPORT Patient: YADIRA BOLAÑOS,WW-WENDY L F.N.P. [id number] [age] F Status: REG CLI OCC OCCUPATIONAL MEDICINE PROGRESS NOTE DATE OF SERVICE 02/06/2018 DATE OF INJURY 02/06/2018 HISTORY OF PRESENT ILLNESS This is a 27-year-old female who presents to office for a work related injury. 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 The patient states while attempting to sedated a male Anguillan Lima weighing approximately 80 pounds, for a procedure the dog became aggressive. The patient states she attempted to muzzle the dog and the dog bit her right hand three times. 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 The patient states the dog was flagged as aggressive prior to incident. The patient came to [facility] for evaluation. States she irrigated puncture wound sites with copious amounts of Surgi-Clens prior to arrival. The patient has multiple puncture wounds to the right hand. Reports painful range of motion. Denies any sensory loss. Rates her pain of a 3 on 0-10 scale. The patient is right hand dominant. Last tetanus vaccination 2015. Contacted [facility] and spoke to receptionist nurse regarding Shant lima's vaccination status. Plastering Supervisor informed me rabies is up to date. However, the Shant Mckeonerd was due for distemper vaccination. DRUG ALLERGIES No known drug allergies. MEDICATIONS Zoloft, [place] Thyroid, levothyroxine. PAST MEDICAL HISTORY Anxiety, hypothyroidism. PAST SURGICAL HISTORY None listed. SOCIAL HISTORY The patient is . Nonsmoker. Weekly alcohol use. REVIEW OF SYSTEMS General: Denies any fever, chills, general malaise, excessive fatigue or energy. Lung and chest: Denies any pain with inspiration, expiration, shortness of breath with or without exertion, cough or dyspnea. Cardiovascular: Denies any chest pain, palpitations. Musculoskeletal: The patient reports painful range of motion to right wrist and hand. Integumentary: The patient reports multiple puncture wound to right hand. Neurological: Denies any seizures, strokes, abnormalities in sensation, coordination or inability to concentrate. OBJECTIVE DATA This is a 27-year-old female, height 5 feet 4 inches, weight 200 pounds, blood pressure 115/81, temperature 98.1 degrees Fahrenheit, pulse 80, respirations 18. The patient is alert and oriented x3, pleasant, cooperative in no acute distress. Focal exam of right hand: Skin pink, warm, dry. There are four 2 mm puncture wounds noted to volar aspect of right hand primarily around palm region. No drainage nor erythema present to site. There is a pinpoint abrasion/puncture wound noted to dorsal aspect of right hand at the juncture of right thumb and index finger. There is a 4 mm puncture wound noted to the dorsal aspect of right hand/wrist at the junction of hand and wrist location. No drainage or erythema present to any of the puncture wounds or abrasions sites. Range of motion of right wrist: Supination 90 degrees, pronation 90 degrees, wrist flexion 70 degrees, extension 60 degrees, radial deviation 15 degrees, ulnar deviation 35 degrees. With passive range of motion right wrist flexion 80 degrees, extension 80 degrees. The patient is able to make the letter C utilizing her thumb and each of her right phalanges. Profundus and superficialis test of each right phalanges and thumb within normal limits. Had the patient touch thumb and each of the right phalanges together and hold strength, attempted to pass my finger through to check strength of each phalanges. The patient was able to hold upon pressure and counterpressure, was not able to pass my finger through to determine strong strength. Capillary refill brisk of each right phalange. Radial pulse 2+. Sensation intact. PROCEDURE NOTE Cleansed the patient's puncture wound sites with surgical cleanser and water. Applied triple antibiotic ointment. Wrapped with gauze wrap. ASSESSMENT Dog bite right hand. PLAN Medco-14 completed with work restrictions. Instructed the patient maximum lift and carry was 5 pounds with right hand until 02/10/2018. Maximum push or pull 10 pounds with right hand until 02/10/2018. Educational pamphlet regarding signs and symptoms of infection and when to be mindful and notify [employer] office was given. Educational pamphlet on animal bites was given. Instructed the patient to wash puncture wound site at least twice a day with soap and water. May apply triple antibiotic ointment. Instructed to keep hand covered with either gauze, band-aid or glove until all puncture sites are healed. Instructed patient to utilize over the counter ibuprofen, Tylenol for pain and inflammation measures, take as directed. Encouraged RICE therapy. Prescription for Augmentin was given. X-ray completed in [facility] office of right hand. No obvious fracture or dislocation noted. We will have the patient return on 02/13/2018 at 1:00 p.m. The patient is aware to [facility] with any questions or concerns prior to scheduled appointment. The patient verbally expressed understanding and agrees with plan of care. <Electronically signed by Yuri HORVATH> TERRY OBANDONStuart cc: << Signature on File>> Reported By: TERRY OBANDONStuart Signed By: RENNY OBANDO Tests performed at: [place] [address] FCHAND 3 VIEWS Observed: 02/06/2018 Status: F Source: [facility] 12:00 AM HOSPITAL REPOSITORY [place] [address] Name: YADIRA BOLAÑOS Phys: TERRY OBANDONStuart : 89 Age: 27 Sex: F Acct: [id number] Loc: OCC Exam Date: 02/06/18 Status: REG CLI Radiology No.: [id number] Unit Number: [id number] Exam # Type/Exam [id number] [facility] / FCHAND 3 VIEWS RT Right hand 3 views Clinical statement: Injury, abnormal bite AP, lateral, and oblique view show no fracture or dislocation. Joint spaces are maintained. No radiopaque foreign body or soft tissue gas is seen. Impression: Negative exam. Professional interpretation provided by [facility], [place] on RAC-PC-66. Thank you for this referral. <<Signature on File>> Reported By: RICKI QUILES M.D. Signed In NovaPro By: RICKI QUILES M.D. << Signature on File>> Reported By: RICKI QUILES M.D. Signed By: RICKI QUILES M.D. Tests performed at: [address] [address] ALLERGIES ALLERGIES DATE TYPE / CODE NAME / CODE REACTION SEVERITY SOURCE 10/13/2018 Drug No Known Unknown [facility] Allergy/416 Allergies/G39945 Hospital 682221(SNOM 0388(RXNORM) Repository ED CT) 02/25/2015 Environ/420 SEASONAL Cough and [facility] 858674(SN ALLERGIES rhinitis Hospital ED CT) Repository ENCOUNTERS ENCOUNTERS ADMIT/DISCHARGE ACCOUNT ADMITTING ENCOUNTER LOCATION SOURCE NUMBER CLASS 10/22/2018 [id number] Ambulatory BMSBuilding:B [place].[facility] Repository 10/20/2018/10/20/19 [id number] Ambulatory BMSBuilding:B [place] 19 MS.[facility] Repository 10/13/2018/10/13/19 [id number] Ambulatory BMSBuilding:B Bailey 19 MS.[facility] Repository 10/13/2018/10/13/19 [id number] Ambulatory BMSBuilding:B [place] 19 MS.[facility] Repository 10/06/2018/10/06/19 [id number] Ambulatory BMSBuilding:B Adwoa 19 MS.[facility] Repository 09/29/2018/09/29/20 [id number] Ambulatory BMSBuilding:B Adwoa 18 MS.[facility] Repository 09/13/2018/09/14/20 [id number] Ambulatory [address] ing:WPOUTRoom Repository : WP012 09/11/2018 [id number] Ambulatory [facility] ing:LABSPEC Repository 09/11/2018/09/11/20 [id number] Ambulatory BMSBuilding:B [place] 18 MS.[facility] Repository 09/01/2018 [id number] Ambulatory [facility] Hospital ing:LAB Repository 09/01/2018/09/01/20 [id number] Ambulatory BMSBuilding:B Adwoa 18 MS.[facility] Hospital Repository 09/01/2018 [id number] Ambulatory BMSBuilding:B [place] MS.[facility] Repository 08/04/2018 [id number] Ambulatory [facility] Hospital ing:LAB Repository 08/04/2018/08/04/20 [id number] Ambulatory BMSBuilding:B Adwoa 18 MS.[facility] Repository 07/18/2018 [id number] Ambulatory Building:[facility] Repository 07/07/2018/07/07/20 [id number] Ambulatory BMSBuilding:B Adwoa 18 MS.[facility] Repository 06/30/2018/06/30/20 [id number] Ambulatory Building:[address] Repository 06/09/2018/06/09/20 [id number] Ambulatory BMSBuilding:B [place] 18 MS.[facility] Repository 05/12/2018/05/12/20 [id number] Ambulatory BMSBuilding:B [place] 18 MS.[facility] Repository 04/29/2018 [id number] Ambulatory [facility] Hospital ing:LAB Repository 04/29/2018/04/29/20 [id number] Ambulatory BMSBuilding:B Adwoa 18 MS.[facility] Hospital Repository 04/14/2018 [id number] Ambulatory [facility] Hospital ing:LABSPEC Repository 04/14/2018 [id number] Ambulatory [facility] Hospital ing:LABSPEC Repository 04/14/2018/04/14/20 [id number] Ambulatory BMSBuilding:B Adwoa 18 MS.[facility] Hospital Repository 03/24/2018 [id number] Ambulatory [facility] Hospital ing:LAB.FUTUR Repository E 03/19/2018 [id number] Ambulatory [facility] Hospital ing:MTLAB Repository 03/04/2018 [id number] Ambulatory UNIBuilding:F [facility] Hospital Repository 02/13/2018 [id number] Ambulatory UNIBuilding:O [facility] Hospital Repository 02/06/2018 [id number] Ambulatory UNIBuilding:O [facility] Hospital Repository PAYERS PAYERS ENCOUNTER GUARANTOR PAYER SUBSCRIBER SOURCE 10/22/2018 YADIRA Driver Primary ED WEISGARBERDOB: Adwoa [id number] Insurance:ANTHEMPoli [id number] cy Number: [place], [place] [id number] Repository [address]Seq: (330) e Date:8801-48-98VK [phone] () [address] [place] [address]SF: 10/22/2018 Secondary NOT GIVENUNK Bailey Insurance:SELF [facility]Y [facility] Number: Effective Repository Date:2018-10-22 10/20/2018 YADIRA Driver Primary ED WEISGARBERDOB: Adwoa [id number] Insurance:ANTHEMPoli [id number] Adventist Medical Center cy Number: [place], [place] [id number] Repository [address]Vvg: (330) e Date:3268-90-87UY [phone] () [address] [place] [address] 17[address]EG: 10/20/2018 Secondary NOT GIVENUNK Adwoa Insurance:SELF PAY [facility] Number: Effective Repository Date:2018-10-20 10/13/2018 YADIRA Driver Primary ED WEISGARBERDOB: Adwoa [id number] Insurance:ANTHEMPoli [id number] [facility] cy Number: [place], [place] [id number] Repository [address]Ezk: (330) e Date:5104-76-54KC [phone] () [address] [place] [address]QT: 10/13/2018 Secondary NOT GIVENUNK [place] Insurance:SELF PAY Community [facility] Number: Effective Repository Date:2018-10-13 10/13/2018 YADIRA Driver Primary ED WEISGARBERDOB: Adwoa [id number] Insurance:ANTHEMPoli [id number] Adventist Medical Center cy [facility] [place] [id number] Repository 146[address]Frg: (330) e Date:1767-36-61TI [phone] () [address]QHREWJK, [place] [address]OQ: 10/13/2018 Secondary NOT GIVENUNK [place] Insurance:SELF PAY Community [facility] Number: Effective Repository Date:2018-10-09 10/06/2018 YADIRA Driver Primary ED WEISGARBERDOB: Bailey [id number] Insurance:ANTHEMPoli [id number] Adventist Medical Center cy Number: [facility] [place] [id number] Repository [address]Hjq: (330) e Date:8455-61-28SQ [phone] () [address]BQRGJBK, [place] [address]PQ: 10/06/2018 Secondary NOT GIVENUNK [place] Insurance:SELF PAY Community [facility] Number: Effective Repository Date:2018-10-03 09/29/2018 YADIRA Driver Primary ED WEISGARBERDOB: Bailey [id number] Insurance:ANTHEMPoli [id number] Adventist Medical Center cy Number: [facility] [place] [id number] Repository 78[address]Dhl: (330) e Date:9472-27-77NZ [phone] () [address]FHISHFT, [place] [address]JS: 09/29/2018 Secondary NOT GIVENUNK Adwoa Insurance:SELF PAY Community [facility] Number: Effective Repository Date:2018-09-29 09/13/2018 YADIRA Driver Primary ED WEISGARBERDOB: Adwoa [id number] Insurance:ANTHEMPoli [id number] Adventist Medical Center cy Number: [facility] [place] [id number] Repository 56[address]Jkv: (330) e Date:3772-04-63DX [phone] () [address]BBNAJ [place] [address]PI: 09/13/2018 Secondary NOT GIVENUNK [place] Insurance:SELF PAY [facility] Number: Effective Repository Date:2018-09-13 09/11/2018 YADIRA Driver Primary ED WEISGARBERDOB: Bailey [id number] Insurance:ANTHEMPoli [id number] Adventist Medical Center cy Number: [place], [place] [id number] Repository [address]44[address]Kwd: (330) e Date:4927-30-43VD [phone] () [address]MALQKVN [place] [address]RU: 09/11/2018 Secondary NOT GIVENUNK Adwoa Insurance:SELF PAY Community [facility] Number: Effective Repository Date:2018-09-11 09/11/2018 YADIRA Driver Primary ED WEISGARBERDOB: Bailey [id number] Insurance:ANTHEMPoli [id number] Adventist Medical Center cy Number: [place] [id number] Repository 34[address]Sbn: (330) e Date:2864-49-67XJ [phone] () [address] [place] [address] [place] [address]MF: 09/11/2018 Secondary NOT GIVENUNK Bailey Insurance:SELF PAY Community [facility] Number: Effective Repository Date:2018-09-11 09/01/2018 YADIRA Driver Primary ED WEISGARBERDOB: Bailey [id number] Insurance:ANTHEMPoli [id number] Adventist Medical Center cy Number: [place], [place] [id number] Repository [address]Fuu: (330) e Date:5991-31-81PJ [phone] () [address]IHRUQS [place] [address]MG: 09/01/2018 Secondary NOT GIVENUNK [place] Insurance:SELF PAY Community [facility] Number: Effective Repository Date:2018-09-01 09/01/2018 YADIRA Driver Primary ED WEISGARBERDOB: Bailey [id number] Insurance:ANTHEMPoli [id number] Adventist Medical Center cy Number: [facility] HospitalSENTHILTher[place], [place] [id number] Repository 08[address]Shh: (330) e Date:9526-80-25RI [phone] (HP) [address] [address]SB: 09/01/2018 Secondary NOT GIVENUNK Bailey Insurance:SELF PAY Community [facility] Number: Effective Repository Date:2018-09-01 09/01/2018 YAIDRA Driver Primary ED WEISGARBERDOB: Adwoa [id number] Insurance:ANTHEMPoli [id number] Adventist Medical Center cy Number: [facility] HospitalSENTHILTher[place], [place] [id number] Repository [address]Cri: (330) e Date:0955-01-61MC [phone] (HP) [address]CVSQAKP, [place] [address]WO: 09/01/2018 Secondary NOT GIVENUNK Adwoa Insurance:SELF PAY Community [facility] Number: Effective Repository Date:2018-09-01 08/04/2018 YADIRA Driver Primary ED WEISGARBERDOB: Adwoa [id number] Insurance:ANTHEMPoli [id number] Adventist Medical Center cy Number: [facility] [id number] Repository [address]Apv: (330) e Date:0803-62-70HG [phone] () [address] [address]GX: 08/04/2018 Secondary NOT GIVENUNK Bailey Insurance:SELF PAY Community [facility] Number: Effective Repository Date:2018-08-04 08/04/2018 YADIRA Driver Primary ED WEISGARBERDOB: Adwoa [id number] Insurance:ANTHEMPoli [id number] Adventist Medical Center cy Number: [facility] [place]IDA[place], [place] [id number] Repository [address]Qvb: (330) e Date:8714-62-36BV [phone] () [address]XOVUYQTADAL[address] BRAD[address] [address]FY: 08/04/2018 Secondary NOT GIVENUNK Adwoa Insurance:SELF PAY [facility] Number: Effective Repository Date:2018-08-04 07/18/2018 YADIRA Primary CHANA Mcdaniels LEAHSGARBERDOB: Insurance:ANTHEMPoli LEAHSGARBERDOB: Children's cy Number: [id number] [facility] [id number] Repository [place]DMARUIZDAN[place], [place] e Date: RDLAUREL OAKS BEHAVIORAL HEALTH CENTERRUIZDANVILLE, [place] [address]Txz: [phone]) [phone] (HP) 07/07/2018 YADIRA Driver Primary ED WEISGARBERDOB: [place] [id number] Insurance:ANTHEMPoli [id number] Adventist Medical Center cy Number: [facility]MEG[place] [id number] Repository 15[address]Mtn: (885) e Date:4283-27-10FA [phone] () [address] [place] [address]BS: 07/07/2018 Secondary NOT GIVENUNK Adwoa Insurance:SELF PAY [facility] Number: Effective Repository Date:2018-07-07 06/30/2018 YADIRA Primary CHANA Mcdaniels LEAHSGARBERDOB: Insurance:ANTHEMPoli LEAHSGARBERDOB: Children's cy Number: [id number] [facility] [id number] ENERGY Repository [place]DWAMEGDAN[place], [place] e Date: [facility] HOSPITALRIUZDANVILLE, [place] [address]Ozx: [phone] (HP) 06/09/2018 YADIRA Driver Primary ED WEISGARBERDOB: [place] [id number] Insurance:ANTHEMPoli [id number] Adventist Medical Center cy Number: [facility] HospitalMEG[facility], [place] [id number] Repository 23[address]Fhm: (859) e Date:0787-89-65KK [phone] () [address]NXSIMMV [place] [address]BO: 06/09/2018 Secondary NOT GIVENUNK Adwoa Insurance:SELF PAY Community [facility] Number: Effective Repository Date:2018-06-09 05/12/2018 YADIRA Driver Primary ED WEISGARBERDOB: [place] [id number] Insurance:ANTHEMPoli [id number] Adventist Medical Center cy Number: [facility] HospitalMEG[facility], [place] [id number] Repository [address]Pef: (330) e Date:5987-48-01PL [phone] () [address]PVZU[address] [place] [address] 128[address]FI: 05/12/2018 Secondary NOT GIVENUNK Bailey Insurance:SELF PAY Community [facility] Number: Effective Repository Date:2018-05-12 04/29/2018 YADIRA Driver Primary ED WEISGARBERDOB: Adwoa [id number] Insurance:ANTHEMPoli [id number] Adventist Medical Center cy Number: [place], [place] [id number] Repository [address]Tbb: (330) e Date:1431-95-19LL [phone] () [address]SDPNTTM, [place] [address]HN: 04/29/2018 Secondary NOT GIVENUNK [place] Insurance:SELF PAY Community [facility] Number: Effective Repository Date:2018-04-29 04/29/2018 YADIRA Driver Primary ED WEISGARBERDOB: Bailey [id number] Insurance:ANTHEMPoli [id number] Adventist Medical Center cy Number: [place] [id number] Repository [address]Kcu: (330) e Date:9052-56-95MP [phone] () [address]XRJKGYF, [place] [address]QT: 04/29/2018 Secondary NOT GIVENUNK Bailey Insurance:SELF PAY Community [facility] Number: Effective Repository Date:2018-04-29 04/14/2018 YADIRA Driver Primary ED WEISGARBERDOB: Adwoa [id number] Insurance:ANTHEMPoli [id number] Adventist Medical Center cy Number: [place] [id number] Repository [address]Boh: (330) e Date:5171-53-26CD [phone] () [address]XUFTVIRADALID BRADY [address]OF: 04/14/2018 Secondary NOT GIVENUNK Adwoa Insurance:SELF PAY Community [facility] Number: Effective Repository Date:2018-04-14 04/14/2018 YADIRA Driver Primary ED WEISGARBERDOB: Bailey [id number] Insurance:ANTHEMPoli [id number] [facility] cy Number: [place] [id number] Repository 86[address]Ytd: (330) e Date:3389-92-37WF [phone] () [address] [address]PY: 04/14/2018 Secondary NOT GIVENUNK Bailey Insurance:SELF PAY Community [facility] Number: Effective Repository Date:2018-04-14 04/14/2018 YADIRA Driver Primary ED WEISGARBERDOB: Adwoa [id number] Insurance:ANTHEMPoli [id number] [facility] cy Number: [place] [id number] Repository [address]Uww: (330) e Date:9509-03-27UR [phone] () [address]HPEUQADADALID BRAD[address] [address]FC: 04/14/2018 Secondary NOT GIVENUNK [place] Insurance:SELF PAY Community [facility] Number: Effective Repository Date:2018-04-14 03/24/2018 YADIRA Driver Primary ED WEISGARBERDOB: Bailey [id number] Insurance:ANTHEMPoli [id number] [facility] cy Number: [facility] HospitalSHONAT[facility] [place] [id number] Repository [address]Hxg: (330) e Date:3614-56-18IU [phone] () [address]YXRZEVTADALID BRADY [address]LC: 03/24/2018 Secondary NOT GIVENUNK Adwoa Insurance:SELF PAY Community [facility] Number: Effective Repository Date:2018-03-20 03/19/2018 YADIRA Driver Primary ED WEISGARBERDOB: Bailey [id number] Insurance:Dhara [id number] [facility] Number: Hospital [place] [id number] Repository [address]Wgv: 330) e Date:4340-46-19GX [phone] (HP) [address]PQLHYOQ, [place] [address]KU: 03/19/2018 Secondary NOT GIVENUNK Adwoa Insurance:SELF PAY [facility] Number: Effective Repository Date:2018-03-19 03/04/2018 YADIRA Driver [facility] [id number] Insurance:[facility] Number: [place]ository [place] [id number] [address]Mnu: (330) e Date: [phone] (HP) 02/13/2018 YADIRA Driver Primary YADIRA Driver [id number] Insurance:[address] Repository [facility] [place] Number: [id number]: 330) [id number] [phone] (HP) Date: 02/06/2018 YADIRA Driver Primary YADIRA M [facility] [id number] Insurance:[address] Repository RDWAMEG [place] Number: [id number]: 330 [id number] [phone] (HP) Date:
== END ==
PROVIDERS: Referring Provider Physician Assistant; Visit Provider Physician Assistant
DX: R30.0 Dysuria (principal)
CPT/HCPCS: 81001; 87086; 87088

== ENCOUNTER 2018-09-13 21:20 | Outpatient (CLI) | payer BC, SELFPAY ==
[2018-09-11 12:35] VITALS: BMI 39.4
[2018-09-13 21:46] VITALS: BMI 38.9
[2018-09-13] MEDS: Dextrose 5%-Lactated Ringers 1,000 ML 999 ML IV (22:45)
[2018-09-13 22:58] LABS: Mucous, Urine 0 SEEN /hpf (<or=2+); Red Blood Cells-Urine 0 SEEN /hpf (0-5)
[2018-09-13] MEDS: Ondansetron 4 MG/2 ML Vial IV (22:58)
[2018-09-13 23:02] LABS: Color, Urine Yellow (Yellow); Glucose, Dipstick Normal (Normal); Ketone-Dipstick 50 mg/dl (Negative); Leukocyte Esterase-Dipstick 100 /ul (Negative); Nitrite-Dipstick Negative (Negative); Occult Blood-Urine Negative /ul (Negative); Protein-Dipstick Negative (Negative); Urine Bilirubin Dipstick Negative (Negative); Urine Clarity Cloudy (Clear); Urine Urobilinogen Normal (Normal)
[2018-09-13 23:03] LABS: Hematocrit 36.6 % (37-47); Hemoglobin 12.5 g/dl (12.0-15.0); Mean Corp Hgb Conc 34.2 g/gl (32-36); Mean Corpuscular Hgb 30.5 pg (27.0-32.0); Mean Corpuscular Volume 89.3 fL (81-99); Platelet Count 200 K/mm3 (150-450); RBC Distribution Width CV 14.4 % (11.6-14.6); RBC Distribution Width SD 46.9 fl (35.1-43.9); White Blood Count 13.8 K/mm3 (4.4-11.0)
[2018-09-13 23:07] LABS: Squamous Epithelial Cells - UA 0-5 SEEN /hpf (5-10)
[2018-09-13 23:09] LABS: Bacteria RARE /hpf (None Seen); White Blood Cells 0-5 SEEN /hpf (0-5)
[2018-09-13 23:10] LABS: Transitional Epithelial - Ur 0-5 SEEN /hpf (0-5)
[2018-09-13 23:11] LABS: Yeast-Urine RARE /hpf (None Seen)
[2018-09-13 23:14] LABS: Scan Indicated on CBC? Y/N NO
[2018-09-13] MEDS: Dextrose 5%-Lactated Ringers 1,000 ML 250 ML IV (23:52)
[2018-09-13] MEDS: Nalbuphine 10 MG/ML Ampul IV (23:53)
[2018-09-14] MEDS: Dextrose 5%-Lactated Ringers 1,000 ML 250 ML IV ×2 (03:22→08:08)
[2018-09-14] MEDS: proMETHazine 25 MG/ML Syringe IV (03:23)
--- NOTE | 2018-09-14 03:30 | NURSING ---
This RN at pt's bedside, giving pt Phenergan 25 mg IVP per order for pt c/o nausea and wanting something for nausea. Pt then stated to this RN, I actually wanted to talk to you later this morning after I woke up about my anxiety and depression and the way I was feeling at home before I got sick recently. This RN expressed concern and asked pt if she would like to talk right now. Pt stated, Well they recently increased my dosage of my Zoloft from 100 mg to 150 mg at the beginning of this month and I don't think it has been helping. This RN asked pt if she had suicidal ideation or thoughts now or recently. Pt then stated, Yes. My kids have also been sick and I've been caring for them and the whole time I kept thinking, this is pointless. Why bother? I am worthless. I haven't been sleeping. I think I got so sick because I haven't been taking care of myself and sleeping very much. This RN provided emotional support. Pt then stated, I'm nervous to go home because of how I've been feeling and I saw a psychiatrist who increased my dose and I am trying to get into counseling, but it's difficult to get in to see a counselor. I'm hoping that the fluids and the sleep that I am getting here right now help me feel a little better. Right now I am kind of on a high and feeling hopeful. This RN remained at bedside, offering emotional support and informed pt that we will look into resources for her. Pt then became drowsy. This RN offered to remain at bedside. Pt stated, I think I want to sleep right now. Encouraged pt to call RN if pt needed to talk or had any suicidal ideation, pt verbalized understanding. Pt's remains at bedside and awakened when pt began talking about her feelings of concern. Pt's declined need for interventions at this time and feels comfortable with the pt, very supportive. duty manager, Sana Snyder RN on unit. Discussed the above conversation with Ilene LUTHER. Pt to have PHQ assessment when pt awakens since pt declines suicide ideation or thoughts at this time and openly voicing concerns with this RN. Crisis to be consulted during day shift hours. Will continue to monitor pt.
--- NOTE | 2018-09-14 07:35 | NURSING ---
This RN consulted with Nursing Supervisor [place], Oumou RN about pt and pt's concerns regarding anxiety and depression with recent suicidal thoughts as well as information noted in RN note at [phone]. This RN was informed to advise pt to call crisis or be evaluated in ED if pt feels she is a threat to herself or to others. Pt called out to RN for assistance to BR at 0700. Pt returned to bed with her at the bedside remaining supportive and informed of the resources available as mentioned above and that Bob RN would be assuming care and will be performing a depression screening assessment. Pt verbalized understanding. Pt appears tired. This RN questioned pt about how she was currently feeling and pt stated, I'm just really tired, I think from just everything. Pt continued to deny feeling like a threat to herself or others at this current time. This RN also encouraged pt to talk to Dr. Rolle when he rounds today if she is comfortable doing so, pt verbalized that she would probably be comfortable talking to him about it. Emotional support given.
--- NOTE | 2018-09-14 09:00 | NURSING ---
Nancy from the [facility] called. She will be coming in to evaluate patient within 2 1/[address] Rolle notified. Will keep patient on our unit until she can be evaluate. Spouse in room.
--- NOTE | 2018-09-14 09:19 | OB.TRI.HP_ITS ---
- Problem List (1) Gastroenteritis Status: Acute (2) Depression affecting in third trimester, antepartum Status: Chronic Comment: h/o severe PPD, zoloft, counseled regarding risks of medication, counseling encouraged and patient planning to follow up again, has done PHP in past History of Present Illness Date of Service: 09/14/18 Was patient seen by the physician?: Yes Reason For Visit: R/O LABOR/depression/gastroenteritis Date of Service: 09/14/18 Final NAV: 11/24/18 Final NAV Source: US <20 weeks Gestational age: 29 Weeks and 6 Days History of Present Illness: Yadira was evaluated in the ER on 09/11 for possible influenza and treated with tamiflu but influenza testing negative. Over the past two days with inability to tolerate PO, nausea, vomiting and diarrhea. Also with regular contraction like pains. Denies leaking amniotic fluid or bleeding. No fevers. She also has noted worsening depressed mood. When questioned does not have current suicidal thoughts or thoughts of harming others or . States has good support at home. Allergies No Known Allergies Allergy (Verified 09/13/18 21:45) - Pertinent Past Medical History Medical History: Past Medical History (Last Updated 09/11/18 @ 12:37 by Tosin Santa) Back pain Chest pain Fatigue Hypothyroid Incontinence Post depression Severe headache Laboratory Studies: Laboratory Tests 09/13/18 09/13/18 Range/Units 21:20 21:20 WBC 13.8 H (4.4-11.0) K/mm3 RBC 4.10 L (4.2-5.4) M/mm3 Hgb 12.5 (12.0-15.0) g/dl Hct 36.6 L (37-47) % MCV 89.3 (81-99) fL MCH 30.5 (27.0-32.0) pg MCHC 34.2 (32-36) g/gl RDW 14.4 (11.6-14.6) % RDW Differential 46.9 H (35.1-43.9) fl Plt Count 200 (150-450) K/mm3 MPV 9.0 (6.2-12.0) fl Urine Color Yellow (Yellow) Urine Clarity Cloudy (Clear) Urine pH 7.0 (5.0 - 8.0) Ur Specific [place] 1.010 (1.002-1.030) Urine Protein Negative (Negative) mg/dl Urine Glucose (UA) Normal (Normal) mg/dl Urine Ketones 50 H (Negative) mg/dl Urine Occult Blood Negative (Negative) /ul Urine Nitrite Negative (Negative) Urine Bilirubin Negative (Negative) mg/dL Urine Urobilinogen Normal (Normal) mg/dl Ur Leukocyte Esterase 100 H (Negative) /ul Urine RBC 0 SEEN (0-5) /hpf Urine WBC 0-5 SEEN (0-5) /hpf Ur Squamous Epith Cells 0-5 SEEN (5-10) /hpf Ur Transition Epith Cell 0-5 SEEN (0-5) /hpf Urine Bacteria RARE (None Seen) /hpf Urine Mucus 0 SEEN (<or=2+) /hpf Urine Yeast RARE (None Seen) /hpf Physical Exam General: Alert, Oriented x3, Cooperative, No apparent distress Cardiovascular: Regular rate, Regular Rhythm Lungs: Clear to auscultation, Normal air movement Abdomen: Soft, Non Tender, Non-Distended, Gravid, Appropriate for Gestational Age Extremities:: No edema Neurological: Neuro grossly intact NST - FHR Rate Baby A Baseline: 130s Variability:: Moderate Accelerations:: 15 x 15 Decelerations:: None NST Reactive:: Yes, Appropriate for gestational age FHR Category:: Category I Uterine Activity:: initially q 2 minutes but now rare Impression/Plan Admitted for observation with severe gastroenteritis and contractions. With IV hydration is doing better with virtually no contraction pains today. No diarrhea today. Afebrile. No elevated WBC. In regards to mood she scores poorly on PHQ9 screening. She is currently taking 150mg of sertraline daily and doubt increase would help. She does not seem suicidal and some worsening of mood may be related to current illness and stress of holidays. She could definitely benefit from counselling in addition to her medication and may need medication evaluation by psychiatrist. She will be evaluated here in the hospital for possible need for inpatient therapy but likely would not need this. She is feeling better today in regards to gastroenteritis symptoms and is cleared for discharge in this regard.
--- NOTE | 2018-09-14 11:10 | NURSING ---
Nancy from the crisis center evaluated patient in hospital. Her progress note is in paper chart. She stated she came up with a safety plan with the patient, and feels that it is appropriate for patient to be discharged home at this plan. Copy of safety plan is in the paper chart. Patient states she is comfortable with this plan. Dr. Rolle notified and he is agreeable to discharge patient home at this time.
--- OUTSIDE RECORDS SUMMARY | 2018-12-17 12:33 | XMS RPT_ITS ---
:1990 Author Organization [place] Support Name Relationship Address Phone [facility] Unavailable [address] + [place] [address] CHANA BOLAÑOS Unavailable [address] + [place] [address] [facility] Unavailable [address] + [place] [address] CHANA BOLAÑOS Unavailable [address] + [place] [address] [facility] Unavailable [address] + [place] [address] MAMI EDSAVITA Unavailable [address] + [place] [address] [facility] Unavailable [address] + [place] [address] MAMI EDWARD Unavailable [address] + [place] [address] [facility] Unavailable [address] + [place] [address] MAMI EDASVITA Unavailable [address] + [place] [address] [facility] Unavailable [address] + [place] [address] MAMI EDSAVITA Unavailable [address] + [place] [address] [facility] Unavailable [address] + [place] [address] CHANA BOLAÑOS Unavailable [address] + [place] [address] [facility] Unavailable [address] + [place] [address] MAMI EDWARD Unavailable [address] + [place] [address] [facility] Unavailable [address] + [place] [address] MAMI EDWARD Unavailable [address] + [place] [address] [facility] Unavailable [address] + [place] [address] MAMI EDSAVITA Unavailable [address] + [place] [address] [facility] Unavailable [address] + [place] [address] CHANA BOLAÑOS Unavailable [address] + [place] [address] [facility] Unavailable [address] + [place] [address] MAMI, EDSAVITA Unavailable [address] + [place] [address] [facility] Unavailable [address] + [place] [address] CHANA BOLAÑOS Unavailable [address] + [place] [address] [facility] Unavailable [address] + [place] [address] MAMI EDSAVITA Unavailable [address] + [place] [address] YADIRA BOLAÑOS Unavailable [address] + [place] [address] MAMI EDSAVITA Unavailable [address] + [place] [address] [facility] Unavailable [address] + [place] [address] MAMI EDSAVITA Unavailable [address] + [place] [address] YADIRA BOLAÑOS Unavailable [address] + [place] [address] CHANA BOLAÑOS Unavailable [address] + [place] [address] [facility] Unavailable [address] + [place] [address] MAMI EDSAVITA Unavailable [address] + [place] [address] [facility] Unavailable [address] + [place] [address] CHANA BOLAÑOS Unavailable [address] + [place] [address] [facility] Unavailable [address] + [place] [address] CHANA BOLAÑOS Unavailable [address] + [place] [address] [facility] Unavailable [address] + [place] [address] MAMI EDSAVITA Unavailable [address] + [place] [address] [facility] Unavailable [address] + [place] [address] CHANA BOLAÑOS Unavailable [address] + [place] [address] [facility] Unavailable [address] + [place] [address] MAMI EDSAVITA Unavailable [address] + [place] [address] [facility] Unavailable [address] + [place] [address] MAMI EDSAVITA Unavailable [address] + [place] [address] [facility] Unavailable [address] + [place] [address] MAMI EDSAVITA Unavailable [address] + [place] [address] [facility] Unavailable [address] + [place] [address] CHANA BOLAÑOS Unavailable [address] + [place] [address] Care Team Providers Name Role Phone Junior Davis Attending Unavailable Prim[facility] Care Physicia, No Referring Unavailable Junior Davis Attending Unavailable Junior Davis Referring Unavailable Primay Care Physicia, No Primary Care Unavailable Adan Rolle Attending Unavailable [facility] Physicia, No Primary Care Unavailable [place]ie Attending Unavailable [facility] Physicia, No Referring [...] No Primary Care Unavailable MarcanthonyMary Referring Unavailable [place]ie Attending Unavailable [facility] Physicia, No Referring [...] Unknown M99.02 - Segmental Dossie, Janett Active [place] [facility] dysfunction of Hospital thoracic region / Repository M99.02(ICD-10) 10/21/2018 Unknown M99.04 - Segmental Dossie, Janett Active [place] [facility] dysfunction of Hospital sacral region / Repository M99.04(ICD-10) 10/21/2018 Unknown M99.05 - Segmental Dossie, Janett Active [place] [facility] dysfunction of Hospital pelvic region / Repository M99.05(ICD-10) 10/13/2018 Unknown Z34.83 - Encounter Marcanthony, Active [place] for supervision of [facility] other normal Hospital , third Repository trimester / Z34.83(ICD-10) 10/13/2018 Unknown O09.899 - Marcanthony, Active [place] Supervision of [facility] other high risk Hospital pregnancies, Repository unspecified trimester / O09.899(ICD-10) 10/13/2018 Unknown E03.9 - Marcanthony, Active [place] Hypothyroidism, [facility] unspecified / Hospital E03.9(ICD-10) Repository 10/13/2018 Unknown O99.343 - Other Marcanthony, Active [place] mental disorders [facility] complicating Hospital , third Repository trimester / O99.343(ICD-10) 10/13/2018 Unknown F32.9 - Major Marcanthony, Active [place] depressive [facility] disorder, single Hospital episode, Repository unspecified / F32.9(ICD-10) 10/13/2018 Unknown Z3A.34 - 34 weeks Marcanthony, Active [place] gestation of [facility] / Hospital Z3A.34(ICD-10) Repository 09/29/2018 Unknown Z3A.28 - 28 weeks Billie Canales Active [place] gestation of [facility] / Hospital Z3A.28(ICD-10) Repository 09/11/2018 Unknown R30.0 - Dysuria / GarryJunior mercer Active [place] R30.0(ICD-10) [facility] Hospital Repository 09/11/2018 Unknown R52 - Pain, Junior Davis Active [place] unspecified / Community R52(ICD-10) Hospital Repository 09/01/2018 Unknown Z34.90 - Encounter Marcanthony, Active [place] for supervision of [facility] normal , Hospital unspecified, Repository unspecified trimester / Z34.90(ICD-10) 09/01/2018 Unknown Z23 - Encounter Marcanthony, Active [place] for immunization / [facility] Z23(ICD-10) Hospital Repository 08/04/2018 Unknown Z34.82 - Encounter Marcanthony, Active [place] for supervision of [facility] other normal Hospital , second Repository trimester / Z34.82(ICD-10) 08/04/2018 Unknown Z3A.24 - 24 weeks Marcanthony, Active [place] gestation of [facility] / Hospital Z3A.24(ICD-10) Repository 07/07/2018 Unknown Z3A.16 - 16 weeks Marcanthony, Active [place] gestation of [facility] / Hospital Z3A.16(ICD-10) Repository 04/16/2018 Unknown Z12.4 - Encounter Marcanthony, Active [place] for screening for [facility] malignant neoplasm Hospital of cervix / Repository Z12.4(ICD-10) 04/15/2018 Unknown Z34.00 - Encounter Marcanthony, Active [place] for supervision of [facility] normal first Hospital , Repository unspecified trimester / Z34.00(ICD-10) 02/06/2018 Admitting Unknown / GISELLA, Active [facility] diagnosis UNK(Unknown) WW-WENDY [facility] Repository PROCEDURES PROCEDURES No Procedure Records FoundRESULTS RESULTS CHIROPRACTIC REPORT Observed: 10/22/2018 Status: F Source: [place] 11:45 AM [facility] REPOSITORY [facility] [address] [place] [address] OFFICE VISIT Date of Service: 10/22/18 MR#: [id number] Acct: [id number] Name: YADIRA BOLAÑOS Rep #: [id number] : 1990 Provider: Janett Brenner D.C. Age/Sex: 28/F [place] [facility] [place]: Signed Intake Vital Signs10/22/18 Body Mass [...] DAILY tab 09/04/17 [History Confirmed 10/13/18] Thyroid,Pork [Chestnut Thyroid] 30 mg PO DAILY 09/07/17 [History Confirmed 10/13/18] sertraline 100 mg tablet 150 mg PO QDAY #135 tab 09/01/18 [Rx Confirmed 10/13/18] PFSH Medical History Back pain (Acute) Chest pain (Acute) Fatigue (Acute) Hypothyroid (Acute) Incontinence (Acute) Post depression (Acute) Severe headache (Acute) Family History Grandfather Diabetes Father Hypertension Social History number of children: 2 current occupational status: employed current occupation: [employer] Smoking Status: Never smoker alcohol intake: never [...] Additional Codes Procedures - Manipulation: 3-4 regions (90081) 10/22/18 4692 <Electronically signed by Janett Brenner D.C.> Date Janett Sandhu Signature: Date (if applicable) CC: CHIROPRACTIC REPORT Observed: 10/20/2018 Status: F Source: [place] 10:23 AM [facility] REPOSITORY [facility] [address] [place] [address] OFFICE VISIT Date of Service: 10/20/18 MR#: [id number] Acct: [id number] Name: YADIRA BOLAÑOS Rep #: [id number] : 1990 Provider: Janett Brenner D.C. Age/Sex: 28/F [place] [facility] Status: Signed Intake Vital Signs10/20/18 Height 5 [...] DAILY tab 09/04/17 [History Confirmed 10/13/18] Thyroid,Pork [Chestnut Thyroid] 30 mg PO DAILY 09/07/17 [History Confirmed 10/13/18] sertraline 100 mg tablet 150 mg PO QDAY #135 tab 09/01/18 [Rx Confirmed 10/13/18] [facility] Medical History Back pain (Acute) Chest pain (Acute) Fatigue (Acute) Hypothyroid (Acute) Incontinence (Acute) Post depression (Acute) Severe headache (Acute) Family History Grandfather Diabetes Father Hypertension Social History number of children: 2 current occupational status: employed current occupation: [employer] Smoking Status: Never smoker alcohol [...] Additional Codes Procedures - Manipulation: 3-4 regions (28080) 10/20/18 1023 <Electronically signed by Janett Brenner D.C.> Date Janett Brenner D.C. Cosigner Signature: Date (if applicable) CC: FUNDRAISING SALE REPRESENTATIVE OFFICE VISIT Observed: 10/13/2018 Status: F Source: [place] REPORT 3:59 PM [facility] REPOSITORY [facility] [address] [place] [address] OFFICE VISIT Date of Service: 10/13/18 MR#: [id number] Acct: [id number] Name: YADIRA BOLAÑOS Rep #: [id number] : 1990 Provider: Mary Blackburn MD Age/Sex: 28/F Location: [facility] Status: Signed Intake Vital Signs10/13/18 Body Mass Index (BMI) 38.9 10/13/18 Height 5 ft 4 in 10/13/18 Weight: 230 lb 10/13/18 Body Mass Index (BMI) 39.4 10/13/18 Blood Pressure 114/76 Intake Visit Reasons: 34 WEEK OB Chief Complaint: est ob Ham Stripper Required: No Is patient in pain?: No Allergies No Known Allergies Allergy (Verified 10/13/18 15:34) Medications Vit No.130/Iron/Folic [ Vitamins] 1 tab PO DAILY 09/29/15 [History Confirmed 10/13/18] levothyroxine 25 mcg tablet 50 mcg PO DAILY tab 09/04/17 [History Confirmed 10/13/18] Thyroid,Pork [Chestnut Thyroid] 30 mg PO DAILY 09/07/17 [History [...] 2 current occupational status: employed current occupation: [employer] Smoking Status: Never smoker alcohol intake: never [...] signed by Mary Blackburn MD> Date Mary Blackbrun MD Cosign Signature: Date (if applicable) CC: CHIROPRACTIC REPORT Observed: 10/13/2018 Status: F Source: [place] 3:29 PM [facility] REPOSITORY [facility] [address] [place] [address] OFFICE VISIT Date of Service: 10/13/18 MR#: [id number] Acct: [id number] Name: YADIRA BOLAÑOS Rep #: [id number] : 1990 Provider: Janett Brenner D.C. Age/Sex: 28/F Location: [facility] Status: Signed Intake Vital Signs10/13/18 Body Mass [...] DAILY tab 09/04/17 [History Confirmed 09/29/18] Thyroid,Pork [Chestnut Thyroid] 30 mg PO DAILY 09/07/17 [History Confirmed 09/29/18] sertraline 100 mg tablet 150 mg PO QDAY #135 tab 09/01/18 [Rx Confirmed 09/29/18] [facility] Medical History Back pain (Acute) Chest pain (Acute) Fatigue (Acute) Hypothyroid (Acute) Incontinence (Acute) Post depression (Acute) Severe headache (Acute) Family History Grandfather Diabetes Father Hypertension Social History number of children: 2 current occupational status: employed current occupation: [employer] Smoking Status: Never smoker alcohol [...] Additional Codes Procedures - Manipulation: 1-2 regions (67977) 10/13/18 1529 <Electronically signed by Janett Brenner D.C.> Date Janett Sandhu Signature: Date (if applicable) CC: CHIROPRACTIC REPORT Observed: 10/07/2018 Status: F Source: [place] 10:05 AM [facility] [address] [place] [address] OFFICE VISIT Date of Service: 10/06/18 MR#: [id number] Acct: [id number] Name: YADIRA BOLAÑOS Rep #: [id number] : 1990 Provider: Janett Brenner D.C. Age/Sex: 28/F Location: [facility] Status: Signed Intake Vital Signs10/06/18 Height 5 [...] DAILY tab 09/04/17 [History Confirmed 09/29/18] Thyroid,Pork [Chestnut Thyroid] 30 mg PO DAILY 09/07/17 [History Confirmed 09/29/18] sertraline 100 mg tablet 150 mg PO QDAY #135 tab 09/01/18 [Rx Confirmed 09/29/18] Patient : Yes [facility] Medical History Back pain (Acute) Chest pain (Acute) Fatigue (Acute) Hypothyroid (Acute) Incontinence (Acute) Post depression (Acute) Severe headache (Acute) Family History Grandfather Diabetes Father Hypertension Social History number of children: 2 current occupational status: employed current occupation: [employer] [employer] Smoking Status: Never smoker alcohol intake: never [...] two weeks ago, after bending over to coal picker her children toys. The pain was initially [...] Additional Codes Procedures - Manipulation: 1-2 regions (24055) 10/07/18 1005 <Electronically signed by Janett Brenner D.C.> Date Janett Brenner D.C. Cosigner Signature: Date (if applicable) CC: FUNDRAISING SALE REPRESENTATIVE OFFICE VISIT Observed: 09/29/2018 Status: F Source: [place] REPORT 8:58 AM [facility] REPOSITORY [facility] [place] [address] [place] [address] OFFICE VISIT Date of Service: 09/29/18 MR#: [id number] Acct: [id number] Name: YADIRA BOLAÑOS Rep #: [id number] : 1990 Provider: TEODORA Canales Age/Sex: 28/F Location: [facility] Status: Signed Intake Vital Signs09/29/18 Body Mass [...] DAILY tab 09/04/17 [History Confirmed 09/29/18] Thyroid,Pork [Chestnut Thyroid] 30 mg PO DAILY 09/07/17 [History [...] 2 current occupational status: employed current occupation: [employer] Smoking Status: Never smoker alcohol intake: never [...] 09/29/18 0858 <Electronically signed by Billie Canales CARGO CHECKER-C> Date Billie Canales CARGO CHECKER-C Cosigner Signature: Date (if applicable) CC: URINALYSIS, COMPLETE Collected: 09/13/2018 Status: F Source: [place] 9:20 PM [facility] REPOSITORY Order Comment: How was Urine Obtained? [...] Normal RARE Performed By: #### L400.0001 #### [facility] [address] [place], [place], [address] CBC-COMPLETE BLOOD CNT Collected: 09/13/2018 Status: F Source: [place] NO DIFF 9:20 PM [facility] REPOSITORY TYPE CODE TESTS RESULT OUT OF [...] MPV 9.0 Performed By: #### L100.0500 #### [facility] [address] [place], [place], [address] URGENT CARE VISIT Observed: 09/11/2018 Status: F Source: [place] REPORT 5:13 PM [facility] REPOSITORY [facility] [address] [place], [place] [address] OFFICE VISIT Date of Service: 09/11/18 MR#: [id number] Acct: [id number] Name: CLAREJEANETTEYADIRA BLUNT Villa Rep #: [id number] : 1990 Provider: Junior FLORES Age/Sex: 28/F Location: [facility] Status: Signed with Addenda ADDENDUM by Junior [...] the above. This note was generated with [employer] dictation software. It may contain incorrect words, [...] POSS FLU AND UTI Chief Complaint: flu/uti Ham Stripper Required: No Accompanied by: self Is patient in pain?: Yes (back) Allergies No Known Allergies Allergy (Verified 09/11/18 12:19) Medications Vit No.130/Iron/Folic [ Vitamins] 1 tab PO DAILY 09/29/15 [History Confirmed 09/11/18] levothyroxine 25 mcg tablet 50 mcg PO DAILY tab 09/04/17 [History Confirmed 09/11/18] Thyroid,Pork [Chestnut Thyroid] 30 mg PO DAILY 09/07/17 [History [...] 2 current occupational status: employed current occupation: [employer] Smoking Status: Never smoker alcohol intake: never [...] had her urine sample checked at her FUNDRAISING SALE REPRESENTATIVE's office earlier this morning but nonetheless would like to have it rechecked here today as well. She notes no complaints of sweats or rash or chest pain/shortness of breath. She has been taking umnd-ucd-fusbrzj Tylenol to assist with her symptoms. She [...] the above. This note was generated with [employer] dictation software. It may contain incorrect words, [...] 09/11/2018 Status: F Source: [place] 1:00 PM [facility] REPOSITORY Order Comment: How was Urine Obtained? [...] URINE SEEN Performed By: #### L400.0001 #### [facility] [address] [place], [address] Observed: 09/11/2018 Status: F Source: [place] CULTURE, URINE 1:00 PM [facility] REPOSITORY Urine Culture ORGANISM 1: Mixed Gram Positive Organisms Calvert Count 11,000-25,000 MIX CULTURE Mixed contaminants. Submit a new specimen if indicated. Performed By: #### M100.0650 #### [facility] [address] [facility] [place], [address] CBC W/DIFF, AUTOMATED Collected: 09/01/2018 Status: F Source: [place] 4:03 PM [facility] REPOSITORY TYPE CODE TESTS RESULT OUT OF [...] Lymph 2.03 Performed By: #### L100.0100 #### [facility] [address] [place], [address] GLUCOSE CHALLENGE GEST Collected: 09/01/2018 Status: F Source: [place] 1H 50G 4:03 PM [facility] REPOSITORY TYPE CODE TESTS RESULT OUT OF RANGE REFERENCE UNITS LAB L501.0250 70-140 mg/dL Normal GLU GEST 108 50g 1H Performed By: #### L501.0250 #### [facility] [address] [place], [address] FUNDRAISING SALE REPRESENTATIVE OFFICE VISIT Observed: 09/01/2018 Status: F Source: [place] REPORT 3:39 PM [facility] REPOSITORY [facility] [address] [place] [address] OFFICE VISIT Date of Service: 09/01/18 MR#: [id number] Acct: [id number] Name: YADIRA BOLAÑOS Rep #: [id number] : 1990 Provider: Mary Blackburn MD Age/Sex: 28/F Location: [facility] Status: Signed with Addenda ADDENDUM by Robyn Cheng on 09/01/18 at 1539 OFFICE PROCEDURES Office Procedure Documentation entered by Robyn Cheng 09/01/18 15:39: Immunizations Boostrix Tdap Performing Provider: Mary Blackburn MD Administered by: Robyn Cheng on 09/01/18 15:38 Dose Route Admin Location Lot Number Expiration Date [facility]DC Health Care Law Specialist 0.5 mL IM Right Arm (SQ) [id number] 07/19/25 48014-857-27 [employer] VIS Given Date VIS Publication Date 09/01/18 11/23/14 Eligibility Eligibility Date 09/01/18 1539 <Electronically signed by Robyn Cheng > Date Robyn Cheng cc: * Signed Intake Vital Signs09/01/18 Height 5 ft 4 in 09/01/18 Weight: 230 lb 09/01/18 Body Mass Index (BMI) 39.4 09/01/18 Blood Pressure 100/62 Intake Visit Reasons: 28 WEEK OB Chief Complaint: est ob Ham Stripper Required: No Is patient in pain?: No Allergies No Known Allergies Allergy (Verified 09/01/18 14:53) Medications Vit No.130/Iron/FA [ Vitamins] 1 tab PO DAILY 09/29/15 [History Confirmed 09/01/18] levothyroxine 25 mcg tablet 50 mcg PO DAILY tab 09/04/17 [History Confirmed 09/01/18] Thyroid,Pork [Chestnut Thyroid] 30 mg PO DAILY 09/07/17 [History [...] 2 current occupational status: employed current occupation: [employer] Smoking Status: Never smoker alcohol intake: never [...] Status: F Source: [place] ([place]) 4:53 PM [facility] REPOSITORY TYPE CODE TESTS RESULT OUT OF RANGE REFERENCE UNITS LAB L501.9520 0.358-3.74 uIU/mL Normal TSH 0.86 Performed By: #### L501.9520, L506.0400 #### [facility] [address] [place], [address] T4 FREE DIRECT Collected: 08/04/2018 Status: F Source: [place] 4:53 PM [facility] REPOSITORY TYPE CODE TESTS RESULT OUT OF RANGE REFERENCE UNITS LAB L506.0400 0.76-1.46 ng/dL Normal T4 FREE 0.81 DIRECT Performed By: #### L501.9520, L506.0400 #### [place] [facility] [address] [place], [address] FUNDRAISING SALE REPRESENTATIVE OFFICE VISIT Observed: 08/04/2018 Status: F Source: [place] REPORT 4:40 PM [facility] REPOSITORY [facility] [address] [place] [address] OFFICE VISIT Date of Service: 08/04/18 MR#: [id number] Acct: [id number] Name: PARVINJOSE RAULYADIRA Rep #: [id number] : 1990 Provider: Mary Blackburn MD Age/Sex: 28/F Location: [facility] Status: Signed Intake Vital Signs08/04/18 Height 5 ft 4 in 08/04/18 Weight: 225 lb 08/04/18 Body Mass Index (BMI) 38.6 08/04/18 Blood Pressure 128/70 H Intake Visit Reasons: 24 WEEK OB Chief Complaint: est ob Ham Stripper Required: No Is patient in pain?: No Allergies No Known Allergies Allergy (Verified 08/04/18 16:17) Medications Vit No.130/Iron/FA [ Vitamins] 1 tab PO DAILY 09/29/15 [History Confirmed 08/04/18] levothyroxine 25 mcg tablet 50 mcg PO DAILY tab 09/04/17 [History Confirmed 08/04/18] Thyroid,Pork [Chestnut Thyroid] 30 mg PO DAILY 09/07/17 [History [...] 2 current occupational status: employed current occupation: [employer] Smoking Status: Never smoker alcohol intake: never [...] Mary Blackburn MD> Date [facility] Signature: Date (if applicable) CC: FUNDRAISING SALE REPRESENTATIVE OFFICE VISIT Observed: 07/07/2018 Status: F Source: [place] REPORT 4:56 PM [facility] [address] [place] [address] OFFICE VISIT Date of Service: 07/07/18 MR#: [id number] Acct: [id number] Name: YADIRA BOLAÑOS Rep #: [id number] : 1990 Provider: Mary Blackburn MD Age/Sex: 28/F Location: [facility] Status: Signed with Addenda ADDENDUM by Tosin Smith on 07/07/18 at 9711 OFFICE PROCEDURES Office Procedure Documentation entered by Tosin Smith 07/07/18 16:56: Office Meds Flucelvax Quad 5542-6022 (PF) Performing Provider: Mary Blackburn MD Administered by: Tosin Smith on 07/07/18 16:54 Dose Route Admin Location Lot Number Expiration Date NDC Health Care Law Specialist 0.5 mL IM right deltoid [id number] 03/29/19 [id number] SEQIRUS 07/07/18 1656 <Electronically signed by Tosin Smith > Date Tosin Smith cc: * Signed Intake Vital Signs07/07/18 Height 5 ft 4 in 07/07/18 Weight: 220 lb 4 oz 07/07/18 Body Mass Index (BMI) 37.8 07/07/18 Blood Pressure 102/70 Intake Visit Reasons: 20 weeks Chief Complaint: est ob Ham Stripper Required: No Is patient in pain?: No Allergies No Known Allergies Allergy (Verified 07/07/18 16:06) Medications Vit No.130/Iron/FA [ Vitamins] 1 tab PO DAILY 09/29/15 [History Confirmed 07/07/18] levothyroxine 25 mcg tablet 50 mcg PO DAILY tab 09/04/17 [History Confirmed 07/07/18] Thyroid,Pork [Chestnut Thyroid] 30 mg PO DAILY 09/07/17 [History [...] 2 current occupational status: employed current occupation: [employer] Smoking Status: Never smoker alcohol intake: never [...] MD Cosigner Signature: Date (if applicable) CC: FUNDRAISING SALE REPRESENTATIVE OFFICE VISIT Observed: 06/09/2018 Status: F Source: [place] REPORT 4:08 PM [facility] [address]. [address] [place] [address] OFFICE VISIT Date of Service: 06/09/18 MR#: [id number] Acct: [id number] Name: YADIRA BOLAÑOS Rep #: [id number] : 1990 Provider: Mary Blackburn MD Age/Sex: 28/F Location: [facility] Status: Signed Intake Vital Signs06/09/18 Height 5 ft 4 in 06/09/18 Weight: 216 lb 6 oz 06/09/18 Body Mass Index (BMI) 37.1 06/09/18 Blood Pressure 108/68 Intake Visit Reasons: 16 weeks Chief Complaint: est ob Ham Stripper Required: No Is patient in pain?: No Allergies No Known Allergies Allergy (Verified 06/09/18 15:43) Medications Vit No.130/Iron/FA [ Vitamins] 1 tab PO DAILY 09/29/15 [History Confirmed 06/09/18] levothyroxine 25 mcg tablet 50 mcg PO DAILY tab 09/04/17 [History Confirmed 06/09/18] Thyroid,Pork [Chestnut Thyroid] 30 mg PO DAILY 09/07/17 [History [...] 2 current occupational status: employed current occupation: [employer] Smoking Status: Never smoker alcohol [...] MD Cosigner Signature: Date (if applicable) CC: FUNDRAISING SALE REPRESENTATIVE OFFICE VISIT Observed: 05/12/2018 Status: F Source: ADWOA REPORT 4:24 PM [facility] [address] [place], [place] [address]h[place]. [address] [place] [address] OFFICE VISIT Date of Service: 05/12/18 MR#: [id number] Acct: [id number] Name: YADIRA BOLAÑOS Rep #: [id number] : 1990 Provider: Mary Blackburn MD Age/Sex: 28/F Location: [facility] Status: Signed Intake Vital Signs05/12/18 Height 5 ft 4 in 05/12/18 Weight: 212 lb 8 oz 05/12/18 Body Mass Index (BMI) 36.4 05/12/18 Blood Pressure 118/82 Intake Visit Reasons: 12 weeks with US Chief Complaint: est ob Ham Stripper Required: No Is patient in pain?: No Allergies No Known Allergies Allergy (Verified 05/12/18 15:56) Medications Vit No.130/Iron/FA [ Vitamins] 1 tab PO DAILY 09/29/15 [History Confirmed 05/12/18] levothyroxine 25 mcg tablet 50 mcg PO DAILY tab 09/04/17 [History Confirmed 05/12/18] Thyroid,Pork [Chestnut Thyroid] 30 mg PO DAILY 09/07/17 [History [...] 2 current occupational status: employed current occupation: [employer] Smoking Status: Never smoker alcohol intake: [...] 04/29/2018 Status: F Source: [place] 9:41 AM [facility] REPOSITORY TYPE CODE TESTS RESULT OUT OF [...] 2.00 Performed By: #### L100.0100, B101.7450 #### [facility] [address] [place], [place], [id number] TYPE AND SCREEN Collected: 04/29/2018 Status: F Source: [place] 9:41 AM [facility] REPOSITORY Order Comment: Reason for Type AND Screen/Red Cells: TYPE CODE TESTS RESULT OUT OF RANGE REFERENCE UNITS LAB B10.0800 O Normal BLOOD TYPE GEL POSITIVE LAB B100.4000 Normal Antibody NEGATIVE Screen Performed By: #### L100.0100, B101.7450 #### [facility] [address] [place], [place], [address] HEPATITIS B SURFACE Collected: 04/29/2018 Status: F Source: [place] AG 9:41 AM [facility] REPOSITORY TYPE CODE TESTS RESULT OUT OF RANGE REFERENCE UNITS LAB L3100.0400 Negative Normal HB Negative SURF AG Result Comment: Performed at: [facility] [id number] Tank Builder And Erector: Sukumar Jin PhD, Phone: [phone] Performed By: #### L3100.0390 #### [facility] (refer to report for specific site) refer to report for address and phone number #### L509.4000, L3890.6005, L700.5000 #### [facility] [address] [place], [place], [id number] RUBELLA IGG Collected: 04/29/2018 Status: F Source: [place] 9:41 AM [facility] REPOSITORY TYPE CODE TESTS RESULT OUT OF [...] phone number #### L509.4000, L3890.6005, L700.5000 #### [facility] [address] [place], [address] HIV - [facility] Collected: 04/29/2018 Status: F Source: [place] 9:41 AM [facility] REPOSITORY TYPE CODE TESTS RESULT OUT OF RANGE REFERENCE UNITS LAB L3890.6005 Nonreactive Normal HIV - [facility] Non-Reactive Performed By: #### L3100.0390 #### [facility] (refer to report for specific site) refer to report for address and phone number #### L509.4000, L3890.6005, L700.5000 #### [facility] [place], [address] RAPID PLASMIN REAGIN Collected: 04/29/2018 Status: F Source: [place] (RPR) 9:41 AM [facility] REPOSITORY TYPE CODE TESTS RESULT OUT OF REFERENCE UNITS RANGE LAB L700.5000 NONREACTIVE NONREACTIVE Normal RPR Performed By: #### L3100.0390 #### [facility] (refer to report for specific site) refer to report for address and phone number #### L509.4000, L3890.6005, L700.5000 #### [facility] [address] [place], [address] FUNDRAISING SALE REPRESENTATIVE OFFICE VISIT Observed: 04/29/2018 Status: F Source: [place] REPORT 9:26 AM [facility] [address] [place], [place] [address]hannah. [address] [place] [address] OFFICE VISIT Date of Service: 04/29/18 MR#: [id number] Acct: [id number] Name: YADIRA BOLAÑOS Rep #: [id number] : 1990 Provider: TEODORA Canales Age/Sex: 28/F Location: [facility] Status: Signed Intake Vital Signs04/29/18 Height 5 ft 4 in 04/29/18 Weight: 213 lb 2 oz 04/29/18 Body Mass Index (BMI) 36.6 04/29/18 Blood Pressure 121/76 Intake Visit Reasons: 12 WEEK OB/REPEAT SCAN Chief Complaint: est ob Ham Stripper Required: No Is patient in pain?: No Allergies No Known Allergies Allergy (Verified 04/29/18 09:02) Medications Vit No.130/Iron/FA [ Vitamins] 1 tab PO DAILY 09/29/15 [History Confirmed 04/29/18] levothyroxine 25 mcg tablet 50 mcg PO DAILY tab 09/04/17 [History Confirmed 04/29/18] Thyroid,Pork [Chestnut Thyroid] 30 mg PO DAILY 09/07/17 [History [...] 2 current occupational status: employed current occupation: [employer] Smoking Status: Never smoker alcohol [...] SHARMA Cosigner Signature: Date (if applicable) CC: FUNDRAISING SALE REPRESENTATIVE OFFICE VISIT Observed: 04/15/2018 Status: F Source: [place] REPORT 9:24 AM [facility] [address] [place] [address]. [address] [place], [place] [address] OFFICE VISIT Date of Service: 04/14/18 MR#: [id number] Acct: [id number] Name: YADIRA BOLAÑOS Rep #: [id number] : 1990 Provider: Mary Blackburn MD Age/Sex: 28/F Location: [facility] Status: Signed Intake Vital Signs04/14/18 Body Mass Index (BMI) 36.2 Intake Visit Reasons: 7-8 weeks? new OB Ham Stripper Required: No Accompanied by: Is patient in pain?: No Allergies No Known Allergies Allergy (Verified 04/14/18 16:21) Medications Vit No.130/Iron/FA [ Vitamins] 1 tab PO DAILY 09/29/15 [History Confirmed 04/14/18] levothyroxine 25 mcg tablet 50 mcg PO DAILY tab 09/04/17 [History Confirmed 04/14/18] Thyroid,Pork [Chestnut Thyroid] 30 mg PO DAILY 09/07/17 [History [...] 2 current occupational status: employed current occupation: [employer] Smoking Status: Never smoker alcohol intake: never [...] Pulmonary (e.g.,TB,Asthma), Seasonal allergies, Drug/latex allergies/reactions, Breast, Clay Preparation Supervisor surgery, Operations/hospitalizations, Anesthetic complications, History of abnormal [...] appearing, comfortable, no acute distress Orientation: alert HENMI Head: normal to inspection, atraumatic, normocephalic Ears: [...] 04/14/2018 Status: F Source: [place] 6:08 PM [facility] REPOSITORY TYPE CODE TESTS RESULT OUT OF RANGE REFERENCE UNITS LAB L8200.2100 Negative Normal Chlam Negative Trac PCR LAB L8200.2200 Negative Normal NG by Negative PCR Performed By: #### L8200.2000 #### [facility] [address] [facility] [place], [address] Observed: 04/14/2018 Status: F Source: [place] CULTURE, URINE 6:08 PM [facility] REPOSITORY Urine Culture Below infection level. ORGANISM 1: Mixed Gram Positive Organisms Calvert Count <1000 MIX CULTURE Mixed contaminants. Submit a new specimen if indicated. Performed By: #### M100.0650 #### [facility] [address] [facility] [place], [address] PAP I-G W/RFX Collected: 04/14/2018 Status: F Source: [place] HRHPV-APTIMA 4:20 PM [facility] REPOSITORY Order Comment: CYTOLOGY INFORMATION: - CLINICAL INFORMATION: ANNUAL - DATE LMP/MENOPAUSE: LMP/ NOT GIVEN - COLLECTION VIAL: Thin Prep Vial - PROCESS ENVIRONMENTAL TECHNICIAN SOURCE: CERVICAL - COLLECTION TECHNIQUE: CX BROOM ONLY Specimen Comment: [id number] Specimen Comment: No. of containers..01 ThinPrep Vial TYPE CODE TESTS RESULT OUT OF RANGE REFERENCE UNITS LAB L7400.0800 . Normal DIAGN Comment Result Comment: NEGATIVE FOR INTRAEPITHELIAL LESION AND MALIGNANCY. LAB L7400.0900 . Normal ADEQ Comment Result Comment: Satisfactory for evaluation. Endocervical and/or squamous metaplastic cells (endocervical component) are present. LAB L7400.1400 . Normal PERFORM Comment Result Comment: Ruthie Montano, Gas Stove Servicer Helper (ASCP) LAB L7400.2575 . Normal TEST METHOD [...] no HPV testing was performed. Performed at: [facility] Lab[address] [id number] Tank Builder And Erector: Mary Carter MD, Phone: [phone] Performed By: #### L7400.0353 #### [facility] (refer to report for specific site) refer to report for address and phone number HCG TITER QUANT., Collected: 03/24/2018 Status: F Source: [place] SERUM 11:11 AM [facility] REPOSITORY TYPE CODE TESTS RESULT OUT OF RANGE REFERENCE UNITS LAB L700.8000 <9 non-preg mIU/mL High HCG 1702 QUANT. Performed By: #### L700.8000 #### [facility] [address] [facility]. [place], [place], [address] FREE T3 Collected: 03/24/2018 Status: F Source: [place] 11:11 AM [facility] REPOSITORY Order Comment: SEND RESULTS OF TSH,FT3,T4F TO RUTH DEJESUS,NANCY @[id number] TYPE CODE TESTS RESULT OUT OF RANGE REFERENCE UNITS LAB L501.08421 2.18-3.98 pg/mL Normal FREE T3 3.3 Performed By: #### L501.14612, L501.9520, L506.0400 #### [facility] [address] [facility] [place], [address] THYROID STIM HORMONE Collected: 03/24/2018 Status: F Source: [place] (TSH) 11:11 AM [facility] REPOSITORY Order Comment: SEND RESULTS OF TSH,FT3,T4F TO RUTH DEJESUS CNP @[id number] TYPE CODE TESTS RESULT OUT OF RANGE REFERENCE UNITS LAB L501.9520 0.358-3.74 uIU/mL Normal TSH 0.53 Performed By: #### L501.50627, L501.9520, L506.0400 #### [facility] [address] [place], [address] T4 FREE DIRECT Collected: 03/24/2018 Status: F Source: [place] 11:11 AM [facility] REPOSITORY Order Comment: SEND RESULTS OF TSH,FT3,T4F TO RUTH DEJESUS CNP @[id number] TYPE CODE TESTS RESULT OUT OF RANGE REFERENCE UNITS LAB L506.0400 0.76-1.46 ng/dL Normal T4 FREE 0.95 DIRECT Performed By: #### L501.53528, L501.9520, L506.0400 #### [facility] [address] [place], [address] HCG TITER QUANT., Collected: 03/19/2018 Status: F Source: [place] SERUM 11:06 AM [facility] REPOSITORY TYPE CODE TESTS RESULT OUT OF RANGE REFERENCE UNITS LAB L700.8000 <9 non-preg mIU/mL High HCG 242 QUANT. Performed By: #### L700.8000 #### [facility] [address] [place], [address] PROGRESS Observed: 03/04/2018 Status: COMPLETED Source: [place] 2:17 PM [facility] REPOSITORY HNO ID: [id number] Author: Kimberlee (Director Chemistry)(Hist) Kristine Service: (none) Author Type: Nurse Practitioner Type: Progress Notes Filed: 07/31/2018 6:02 PM Note Text: [facility] [place] [address] FIRST CARE REPORT Patient: YADIRA BOLAÑOS,AILEEN-KIMBERLEE Driver C.N.P. [id number] [age] F Status: REG POV FC [...] Sodium* (Synthroid*) 25 MCG PO QDAY@0630 Thyroid* (Chestnut Thyroid*) 30 MG PO QDAY@0630 Sertraline Hcl* [...] Alert, Oriented X3, Non-toxic Apperance, Cooperative Skin [place], Warm, and Dry, Well Hydrated Head Normocephalic, [...] your condition. o Call or return to [facility] if you experience problems relating to your visit. All medications and their side effects were explained to the patient and were understood. At home instructions were explained to the patient and were understood. Report to the [facility] Emergency Department if any further problems [...] Signed By: SARAH NORMANN.POmar Tests performed at: [address] [address] PROGRESS Observed: 03/04/2018 Status: COMPLETED Source: [place] 2:16 PM [facility] [place] REPOSITORY HNO ID: [id number] Author: Kimberlee (Director Chemistry)(Hist) Kristine Service: (none) Author Type: Nurse Practitioner Type: Progress Notes Filed: 07/31/2018 6:02 PM Note Text: FIRST CARE DEPARTMENT [facility] [address] [place] [address] To Whom This May Concern: YADIRA BOLAÑOS has been seen at [facility] on 03/04/18. Please excuse her SCHOOL / WORK obligations due to her ailment for the period indicated below. EXCUSE SLIP Period Covered Today 03/04/18 To Date 03/05/18 <Electronically signed by Aric CANALESN.P.> 03/04/18 1417 SARAH NORMANNStuart << Signature on File>> Reported By: SARAH NORMANNOmarPOmar Signed By: SARAH NORMANNStuart Tests performed at: [address] [address] PROGRESS Observed: 02/14/2018 Status: COMPLETED Source: [place] 1:38 PM [facility] [place] REPOSITORY HNO ID: [id number] Author: Provider [facility] Service: (none) Author Type: Physician Type: Progress Notes Filed: 07/31/2018 5:32 PM Note Text: THE [address] [address] OCCUPATIONAL MEDICINE / OCCUPATIONAL MEDICINE REPORT Patient: YADIRA BOLAÑOS WW-JESSICA L F.NOmarPOmar [id number] [age] F Status: REG CLI OCC OCCUPATIONAL MEDICINE PROGRESS NOTE DATE OF SERVICE 02/13/2018 DATE OF INJURY 02/06/2018 CLAIM NUMBER [id number] HISTORY OF PRESENT ILLNESS This is a 27-year-old female who presents to the office for work related injury. 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 The patient arrives today for reevaluation. States [...] ALLERGIES No known drug allergies. MEDICATIONS Zoloft, Chestnut Thyroid, levothyroxine. PAST MEDICAL HISTORY Anxiety, hypothyroidism. [...] pressure and counterpressure of each right phalange. Shot Peen Operator bilaterally strong. Capillary refill brisk of each right phalange. Radial pulse 2+. Sensation intact. ASSESSMENT Dog bite, right hand. PLAN [employer]-14 completed with no work restrictions. Encouraged ice to puncture wound sites. Instructed the patient to finish prescription for Augmentin, to notify [facility] office with any signs and symptoms of infection such as fever, chills, redness or drainage at puncture wound site. Instructed the patient to follow up here at [facility] on an as needed basis. The patient verbally expressed understanding and agrees with plan of care. <Electronically signed by Yuri HORVATH> TERRY OBANDO cc: << Signature on File>> Reported By: TERRY OBANDO Signed By: RENNY OBANDO Tests performed at: [address] [address] OCCUPATIONAL MEDICINE Observed: 02/14/2018 Status: F Source: [place] REPORT 1:38 PM [facility] REPOSITORY [place] [address] OCCUPATIONAL MEDICINE / OCCUPATIONAL MEDICINE REPORT Patient: YADIRA BOLAÑOS TERRY OBANDONStuart [id number] [age] F Status: REG CLI OCC OCCUPATIONAL MEDICINE PROGRESS NOTE DATE OF SERVICE 02/13/2018 DATE OF INJURY 02/06/2018 CLAIM NUMBER [id number] HISTORY OF PRESENT ILLNESS This is a 27-year-old female who presents to the office for work related injury. 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 The patient arrives today for reevaluation. States [...] ALLERGIES No known drug allergies. MEDICATIONS Zoloft, Chestnut Thyroid, levothyroxine. PAST MEDICAL HISTORY Anxiety, hypothyroidism. [...] pressure and counterpressure of each right phalange. Shot Peen Operator bilaterally strong. Capillary refill brisk of each right phalange. Radial pulse 2+. Sensation intact. ASSESSMENT Dog bite, right hand. PLAN [employer]-14 completed with no work restrictions. Encouraged ice to puncture wound sites. Instructed the patient to finish prescription for Augmentin, to notify [facility] office with any signs and symptoms of infection such as fever, chills, redness or drainage at puncture wound site. Instructed the patient to follow up here at [facility] on an as needed basis. The patient verbally expressed understanding and agrees with plan of care. <Electronically signed by Yuri HORVATH> TERRY OBANDO cc: << Signature on File>> Reported By: TERRY OBANDO Signed By: RENNY OBANDO Tests performed at: [place] [address] PROGRESS Observed: 02/10/2018 Status: COMPLETED Source: [place] 2:49 PM [facility] REPOSITORY [facility] ID: [id number] Author: Provider [facility] Service: (none) Author Type: Physician Type: Progress Notes Filed: 07/31/2018 5:24 PM Note Text: [facility] [place] [address] OCCUPATIONAL MEDICINE / OCCUPATIONAL MEDICINE REPORT Patient: YADIRA BOLAÑOS TERRY OBANDO [id number] [age] F Status: REG CLI [facility] OCCUPATIONAL MEDICINE PROGRESS NOTE DATE OF SERVICE 02/06/2018 DATE OF INJURY 02/06/2018 HISTORY OF PRESENT ILLNESS This is a 27-year-old female who presents to office for a work related injury. 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 The patient states while attempting to sedated a male [place] weighing approximately 80 pounds, for a procedure the dog became aggressive. The patient states she attempted to muzzle the dog and the dog bit her right hand three times. 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 The patient states the dog was flagged as aggressive prior to incident. The patient came to [facility] for evaluation. States she irrigated puncture wound sites with copious amounts of Surgi-Clens prior to arrival. The patient has multiple puncture wounds to the right hand. Reports painful range of motion. Denies any sensory loss. Rates her pain of a 3 on 0-10 scale. The patient is right hand dominant. Last tetanus vaccination 2016. Contacted [facility] and spoke to glazing machine operator regarding Shant lima's vaccination status. Presentation Team Member informed me rabies is up to date. However, the Shant [place] was due for distemper vaccination. DRUG ALLERGIES No known drug allergies. MEDICATIONS Zoloft, Chestnut Thyroid, levothyroxine. PAST MEDICAL HISTORY Anxiety, hypothyroidism. [...] and when to be mindful and [facility] was given. Educational pamphlet on animal [...] p.m. The patient is aware to contact [facility] office with any questions or concerns prior to scheduled appointment. The patient verbally expressed understanding and agrees with plan of care. <Electronically signed by Yuri HORVATH> TERRY OBANDO cc: << Signature on File>> Reported By: TERRY OBANDONStuart Signed By: RENNY OBANDONStuart Tests performed at: [place] [address] OCCUPATIONAL MEDICINE Observed: 02/10/2018 Status: F Source: [place] REPORT 2:49 PM [facility] REPOSITORY THE [address] [address] OCCUPATIONAL MEDICINE / OCCUPATIONAL MEDICINE REPORT Patient: YADIRA BOLAÑOS,WW-WENDY L F.N.P. [id number] [age] F Status: REG CLI OCC OCCUPATIONAL MEDICINE PROGRESS NOTE DATE OF SERVICE 02/06/2018 DATE OF INJURY 02/06/2018 HISTORY OF PRESENT ILLNESS This is a 27-year-old female who presents to office for a work related injury. 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 The patient states while attempting to sedated a male [place] weighing approximately 80 pounds, for a procedure the dog became aggressive. The patient states she attempted to muzzle the dog and the dog bit her right hand three times. 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 The patient states the dog was flagged as aggressive prior to incident. The patient came to [facility] for evaluation. States she irrigated puncture wound sites with copious amounts of Surgi-Clens prior to arrival. The patient has multiple puncture wounds to the right hand. Reports painful range of motion. Denies any sensory loss. Rates her pain of a 3 on 0-10 scale. The patient is right hand dominant. Last tetanus vaccination 2015. Contacted [facility] and spoke to glazing machine operator regarding Shant lima's vaccination status. Presentation Team Member informed me rabies is up to date. However, the Shant [place] was due for distemper vaccination. DRUG ALLERGIES No known drug allergies. MEDICATIONS Zoloft, Chestnut Thyroid, levothyroxine. PAST MEDICAL HISTORY Anxiety, hypothyroidism. [...] p.m. The patient is aware to contact [facility] office with any questions or concerns prior to scheduled appointment. The patient verbally expressed understanding and agrees with plan of care. <Electronically signed by Yuri HORVATH> TERRY OBANDONStuart cc: << Signature on File>> Reported By: TERRY OBANDONStuart Signed By: RENNY OBANDO Tests performed at: [place] [address] FCHAND 3 VIEWS Observed: 02/06/2018 Status: F Source: [facility] 12:00 AM HOSPITAL REPOSITORY [place] [address] Name: YADIRA BOLAÑOS Phys: TERRY OBANDONStuart : 90 Age: 27 Sex: F Acct: [id number] Loc: OCC Exam Date: 02/06/18 Status: REG CLI Radiology No.: [id number] Unit Number: [id number] Exam # Type/Exam [id number] [facility] / FCHAND 3 VIEWS RT Right hand 3 views Clinical statement: Injury, abnormal bite AP, lateral, and oblique view show no fracture or dislocation. Joint spaces are maintained. No radiopaque foreign body or soft tissue gas is seen. Impression: Negative exam. Professional interpretation provided by [facility], [place] on [id number]. Thank you for this referral. <<Signature on File>> Reported By: RICKI QUILES M.D. Signed In NovaPro By: RICKI QUILES M.D. << Signature on File>> Reported By: RICKI QUILES M.D. Signed By: RICKI QUILES M.D. Tests performed at: [address] [address] ALLERGIES ALLERGIES DATE TYPE / CODE NAME / CODE REACTION SEVERITY SOURCE 10/13/2018 Drug No Known Unknown [facility] Allergy/416 Allergies/Y52627 Hospital 500425(SNOM 0388(RXNORM) Repository ED CT) 02/25/2015 Environ/420 [facility] 080406(SN ALLERGIES rhinitis Hospital ED CT) Repository ENCOUNTERS ENCOUNTERS ADMIT/DISCHARGE ACCOUNT ADMITTING ENCOUNTER LOCATION SOURCE NUMBER CLASS 10/22/2018 [id number] Ambulatory BMSBuilding:[place] [place] Rep[place] 10/20/2018/10/20/19 [id number] Ambulatory BMSBuilding:B [place] [facility] [place].[facility] [place] 10/13/2018/10/13/19 [id number] Ambulatory BMSBuilding:B [place] 19 MS.[facility] Repository 10/13/2018/10/13/19 [id number] Ambulatory BMSBuilding:B [place] 19 [place].[facility] [place] 10/06/2018/10/06/19 [id number] Ambulatory BMSBuilding:B [place] 19 [place].[facility] [place] 09/29/2018/09/29/20 [id number] Ambulatory BMSBuilding:B [place] 18 MS.[facility] Repository 09/13/2018/09/14/20 [id number] Ambulatory [address] ing:WPOUTRoom Repository : WP012 09/11/2018 [id number] Ambulatory [facility] ing:LABSPEC Repository 09/11/2018/09/11/20 [id number] Ambulatory BMSBuilding:B [place] 18 MS.[facility] Repository 09/01/2018 [id number] Ambulatory [facility] HospitalBuild Hospital ing:LAB Repository 09/01/2018/09/01/20 [id number] Ambulatory BMSBuilding:B [place] [address] Hospital Repository 09/01/2018 [id number] Ambulatory BMSBuilding:B [place] MS.[facility] Repository 08/04/2018 [id number] Ambulatory [facility] HospitalBuild Hospital ing:LAB Repository 08/04/2018/08/04/20 [id number] Ambulatory BMSBuilding:B [place] 18 MS.[facility] Repository 07/18/2018 [id number] Ambulatory Building:[facility] Repository 07/07/2018/07/07/20 [id number] Ambulatory BMSBuilding:B [place] 18 MS.[facility] Repository 06/30/2018/06/30/20 [id number] Ambulatory Building:[address] Repository 06/09/2018/06/09/20 [id number] Ambulatory BMSBuilding:B [place] 18 MS.[facility] Repository 05/12/2018/05/12/20 [id number] Ambulatory BMSBuilding:B [place] 18 MS.[facility] Repository 04/29/2018 [id number] Ambulatory [facility] Hospitalild Hospital ing:LAB Repository 04/29/2018/04/29/20 [id number] Ambulatory BMSBuilding:B [place] [address] Hospital Repository 04/14/2018 [id number] Ambulatory [facility] HospitalBuild Hospital ing:LABSPEC Repository 04/14/2018 [id number] Ambulatory [facility] HospitalBuild Hospital ing:LABSPEC Repository 04/14/2018/04/14/20 [id number] Ambulatory BMSBuilding:B [place] [address] Hospital Repository 03/24/2018 [id number] Ambulatory [facility] HospitalBuild Hospital ing:LAB.FUTUR Repository E 03/19/2018 [id number] Ambulatory [facility] HospitalBuild Hospital ing:MTLAB Repository 03/04/2018 [id number] Ambulatory [facility]uilding:[facility] Repository 02/13/2018 [id number] Ambulatory UNIBuilding:O [facility] Repository 02/06/2018 [id number] Ambulatory UNIBuilding:O [facility] Repository PAYERS PAYERS ENCOUNTER GUARANTOR PAYER SUBSCRIBER SOURCE 10/22/2018 YADIRA Driver Primary ED WEISGARBERDOB: [place] [id number] Insurance:[place] [id number] cy Number: [place] [id number] Repository 14777Pwt: (330) e Date:2617-04-36WO [phone] () [address] [place] [address] 92381XW: 10/22/2018 Secondary NOT GIVENUNK [place] Insurance:SELF PAY [facility] Number: Effective Repository Date:2018-10-22 10/20/2018 YADIRA Driver Primary ED WEISGARBERDOB: [place] [id number] Insurance:[place]HE[place] [id number] Medical Center cy Number: [place] [id number] Repository 18672Qxx: (330) e Date:7338-76-27TE [phone] () [address] [place] [address] 84360LY: 10/20/2018 Secondary NOT GIVENUNK [place] Insurance:SELF PAY [facility] Number: Effective Repository Date:2018-10-20 10/13/2018 YADIRA Driver Primary ED WEISGARBERDOB: [place] [id number] Insurance:[place] [id number] [facility] cy Number: [place], [place] [id number] Repository 79[address]Aya: (330) e Date:9001-06-64ZO [phone] () [address] [place] [address] 19715XR: 10/13/2018 Secondary NOT GIVENUNK [place] Insurance:SELF PAY [facility] Number: Effective Repository Date:2018-10-13 10/13/2018 YADIRA Driver Primary ED WEISGARBERDOB: [place] [id number] Insurance:[place] [id number] Medical Center [place] [facility] [id number] Repository 91531Rss: (330) e Date:7850-16-60KX [phone] () [address], [place] [address]VH: 10/13/2018 Secondary NOT GIVENUNK [place] Insurance:SELF PAY Community [facility] Number: Effective Repository Date:2018-10-09 10/06/2018 YADIRA Driver Primary ED WEISGARBERDOB: [place] [id number] Insurance:[place] [id number] Medical Center cy [facility]: [facility] [id number] Repository 366[address]Yiz: (330) e Date:8234-22-34EJ [phone] () [address]QOIUZM, [place] [address]HZ: 10/06/2018 Secondary NOT GIVENUNK [place] Insurance:SELF PAY Community [facility] Number: Effective Repository Date:2018-10-03 09/29/2018 YADIRA Driver Primary ED WEISGARBERDOB: [place] [id number] Insurance:[place] [id number] Medical Center [place] Number: [facility] [id number] Repository 979[address]Gcy: (330) e Date:8454-37-27XF [phone] () [address]FUUUAM, [place] [address]JR: 09/29/2018 Secondary NOT GIVENUNK [place] Insurance:SELF PAY Community [facility] Number: Effective Repository Date:2018-09-29 09/13/2018 YADIRA Driver Primary ED WEISGARBERDOB: [place] [id number] Insurance:[place] [id number] Medical Center cy Number: [facility] [facility] [id number] Repository 876[address]Pdw: (330) e Date:7504-84-66DZ [phone] () [address]OF[place] [address]RT: 09/13/2018 Secondary NOT GIVENUNK [place] Insurance:SELF PAY Community [facility] Number: Effective Repository Date:2018-09-13 09/11/2018 YADIRA Driver Primary ED WEISGARBERDOB: [place] [id number] Insurance:[place] [id number] Medical Center cy Number: [place] [id number] Repository 747[address]Rqs: (330) e Date:0330-60-55VL [phone] () [address]LDHKV [place] [address]TY: 09/11/2018 Secondary NOT GIVENUNK [place] Insurance:SELF PAY Community [facility] Number: Effective Repository Date:2018-09-11 09/11/2018 YADIRA Driver Primary ED WEISGARBERDOB: [place] [id number] Insurance:[place] [id number] Medical Center cy Number: [place] [id number] Repository 62140Yrd: (330) e Date:7549-29-54KW [phone] () [address] [place] [address] [place] [address]UE: 09/11/2018 Secondary NOT GIVENUNK [place] Insurance:SELF PAY Community [facility] Number: Effective Repository Date:2018-09-11 09/01/2018 YADIRA Driver Primary ED WEISGARBERDOB: [place] [id number] Insurance:[place] [id number] Medical Center cy Number: [place] [id number] Repository 385[address]Qry: (330) e Date:5752-40-31UI [phone] () [address]MOEEL [place] [address]PQ: 09/01/2018 Secondary NOT GIVENUNK [place] Insurance:SELF PAY Community [facility] Number: Effective Repository Date:2018-09-01 09/01/2018 YADIRA Driver Primary ED WEISGARBERDOB: [place] [id number] Insurance:[place] [id number] Medical Center cy Number: [facility] [id number] Repository 555[address]Vwt: (330) e Date:3145-54-69UN [phone] (HP) [address] [address]IB: 09/01/2018 Secondary NOT GIVENUNK [place] Insurance:SELF PAY Community [facility] Number: Effective Repository Date:2018-09-01 09/01/2018 YADIRA Driver Primary ED WEISGARBERDOB: [place] [id number] Insurance:[place] [id number] Medical Center cy Number: [facility] [facility] [id number] Repository 64656Kde: (330) e Date:0664-59-02FO [phone] (HP) [address]WDRVMZP, [place] [address]HX: 09/01/2018 Secondary NOT GIVENUNK [place] Insurance:SELF PAY Community [facility] Number: Effective Repository Date:2018-09-01 08/04/2018 YADIRA Driver Primary ED WEISGARBERDOB: [place] [id number] Insurance:[place] [id number] Medical Center cy Number: [facility] [id number] Repository 73[address]Kgn: (330) e Date:8349-73-08ZD [phone] () [address] [address]MM: 08/04/2018 Secondary NOT GIVENUNK [place] Insurance:SELF PAY Community [facility] Number: Effective Repository Date:2018-08-04 08/04/2018 YADIRA Driver Primary ED WEISGARBERDOB: [place] [id number] Insurance:[place] [id number] Medical Center cy Number: [facility] [place]Ac[place] [id number] Repository 754[address]Utp: (330) e Date:3498-13-34LP [phone] () [address]YRJDIN[address] [address]RL: 08/04/2018 Secondary NOT GIVENUNK [place] Insurance:SELF PAY [facility] Number: Effective Repository Date:2018-08-04 07/18/2018 YADIRA Primary CHANA Mcdaniels LEAHSGARBERDOB: Insurance:[place] LEAHSGARBERDOB: Children's cy Number: [id number] [id number] Repository [place], [place] e Date: RDNORTHPORT MEDICAL CENTERRUIZHATHAWAY, [place] [address]Lbm: (330) [phone] (HP) 07/07/2018 YADIRA Driver Primary ED WEISGARBERDOB: [place] [id number] Insurance:[place] [id number] Medical Center cy Number: [facility] [place] [id number] Repository 14756Pzl: (044) e Date:4903-57-05IP [phone] () [address] [place] [address] 794[address]OS: 07/07/2018 Secondary NOT GIVENUNK [place] Insurance:SELF PAY [facility] Number: Effective Repository Date:2018-07-07 06/30/2018 YADIRA Primary CHANA Mcdaniels LEAHSGARBERDOB: Insurance:[place] LEAHSGARBERDOB: Children's cy Number: [id number] [facility] [id number] [place] Repository [place], [place] e Date: [facility]AY, [place] [address]Vsq: (330) [phone] (HP) 06/09/2018 YDAIRA Driver Primary ED WEISGARBERDOB: [place] [id number] Insurance:[place] [id number] Medical Center cy Number: [facility] [id number] Repository 407[address]Jcx: (584) e Date:6429-01-85SH [phone] () [address]FPUKMZN [place] [address]QN: 06/09/2018 Secondary NOT GIVENUNK [place] Insurance:SELF PAY Community [facility] Number: Effective Repository Date:2018-06-09 05/12/2018 YADIRA Driver Primary ED WEISGARBERDOB: [place] [id number] Insurance:[place] [id number] Medical Center cy Number: [facility] [place] [id number] Repository 834[address]Cqn: (330) e Date:0631-71-69LT [phone] () [address] [place] [address] 05602RX: 05/12/2018 Secondary NOT GIVENUNK [place] Insurance:SELF PAY Community [facility] Number: Effective Repository Date:2018-05-12 04/29/2018 YADIRA Driver Primary ED WEISGARBERDOB: [place] [id number] Insurance:[place] [id number] Medical Center cy Number: [place] [id number] Repository [address]Bmm: (330) e Date:3597-69-00RE [phone] () [address]BRHTPGP, [place] [address]NO: 04/29/2018 Secondary NOT GIVENUNK [place] Insurance:SELF PAY Community [facility] Number: Effective Repository Date:2018-04-29 04/29/2018 YADIRA Driver Primary ED WEISGARBERDOB: [place] [id number] Insurance:[place] [id number] Medical Center cy Number: [place] [id number] Repository [address]Iyo: (330) e Date:7849-92-12EZ [phone] () [address]EP[place], [place] [address]KI: 04/29/2018 Secondary NOT GIVENUNK [place] Insurance:SELF PAY Community [facility] Number: Effective Repository Date:2018-04-29 04/14/2018 YADIRA Driver Primary ED WEISGARBERDOB: [place] [id number] Insurance:[place] [id number] Medical Center cy Number: [place] [id number] Repository [address]58[address]Byl: (330) e Date:3168-48-60EK [phone] () [address]NQVWZHKADAL[address] [place] [address]OJ: 04/14/2018 Secondary NOT GIVENUNK [place] Insurance:SELF PAY Community [facility] Number: Effective Repository Date:2018-04-14 04/14/2018 YADIRA Driver Primary ED WEISGARBERDOB: [place] [id number] Insurance:[place] [id number] [facility] cy Number: [place] [id number] Repository 232[address]Ivf: (330) e Date:2403-11-75HN [phone] () [address] [address]VM: 04/14/2018 Secondary NOT GIVENUNK [place] Insurance:SELF PAY Community [facility] Number: Effective Repository Date:2018-04-14 04/14/2018 YADIRA Driver Primary ED WEISGARBERDOB: [place] [id number] Insurance:[place] [id number] [facility] cy Number: [place] [id number] Repository 20[address]Oue: (330) e Date:8718-78-50EV [phone] () [address]EJYLWJZADAL[address] [place] [address]AM: 04/14/2018 Secondary NOT GIVENUNK [place] Insurance:SELF PAY Community [facility] Number: Effective Repository Date:2018-04-14 03/24/2018 YADIRA Driver Primary ED WEISGARBERDOB: [place] [id number] Insurance:[place] [id number] [facility] cy Number: [facility] [place] [id number] Repository [address]Bix: (330) e Date:6106-26-14KY [phone] () [address]WZKIXCVADALID [place]AD[address] [address]RZ: 03/24/2018 Secondary NOT GIVENUNK [place] Insurance:SELF PAY Community [facility] Number: Effective Repository Date:2018-03-20 03/19/2018 YADIRA Driver Primary ED WEISGARBERDOB: [place] [id number] Insurance:Dhara [id number] Number: [place] [id number] Repository [address]Rvq: 330) e Date:9476-52-40FW [phone] (HP) [address]VRFRDSZ, [place] [address]AU: 03/19/2018 Secondary NOT GIVENUNK [place] Insurance:SELF PAY [facility] Number: Effective Repository Date:2018-03-19 03/04/2018 YADIRA Driver [id number] Insurance:[facility] Number: Repository [place] [id number] [address]Wxu: (330) e Date: [phone] (HP) 02/13/2018 YADIRA Driver Primary [facility]ADIRA Driver [facility] Insurance:[address] [facility]ository [facility] [place] Number: [id number]: 330) [id number] [phone] (HP) Date: 02/06/2018 YADIRA Driver Primary YADIRA M [facility] CenterSGARBER13771 Insurance:[address] Repository RDVAMEG [place] Number: [id number]: 330 [id number] [phone] (HP) Date:
== END 2018-09-14 11:45 | disposition home or self-care (01) ==
LOC: WPOUT 21:25 → WP 21:25
PROVIDERS: Visit Provider Obstetrics & Gynecology
DX: O98.513 Other viral diseases complicating pregnancy, third trimester (principal); K52.9 Noninfective gastroenteritis and colitis, unspecified; O60.03 Preterm labor without delivery, third trimester; O99.343 Other mental disorders complicating pregnancy, third trimester; F32.9 Major depressive disorder, single episode, unspecified; Z3A.29 29 weeks gestation of pregnancy
CPT/HCPCS: 96361 ×13; 96374; 36415; 59025; 59050; 81001; 85027; 99218; G0378; J2405

== ENCOUNTER → 2018-10-29 12:38 | Outpatient (CLI) | payer BC, SELFPAY ==
[2018-10-29 10:05] VITALS: BMI 39.4
== END ==
PROVIDERS: Referring Provider Obstetrics & Gynecology; Visit Provider Obstetrics & Gynecology
DX: Z34.90 Encounter for supervision of normal pregnancy, unspecified, unspecified trimester (principal)
CPT/HCPCS: 87081

== ENCOUNTER 2018-11-17 15:50 | Inpatient (IN) | payer BC, SELFPAY ==
[2018-11-17 11:48] VITALS: BMI 39.1
[2018-11-17 15:59] VITALS: BMI 39.2
[2018-11-17] MEDS: Lactated Ringers 1,000 ML 50 ML IV ×2 (16:30→19:56)
[2018-11-17 16:55] LABS: Hematocrit 36.9 % (37-47); Hemoglobin 12.2 g/dl (12.0-15.0); Mean Corp Hgb Conc 33.1 g/gl (32-36); Mean Corpuscular Hgb 29.8 pg (27.0-32.0); Mean Platelet Vol. 9.5 fl (6.2-12.0); Platelet Count 232 K/mm3 (150-450); RBC Distribution Width CV 14.3 % (11.6-14.6); RBC Distribution Width SD 47.2 fl (35.1-43.9)
[2018-11-17 16:57] LABS: Scan Indicated on CBC? Y/N NO
[2018-11-17] MEDS: fentaNYL-bupivacaine (epidural) 100 ML BAG EPIDURAL (19:56)
[2018-11-17] MEDS: Oxytocin 30 units/NS 500 ml 30 UNITS/500 ML IV.SOLN 334 UNITS IV (20:35)
--- NOTE | 2018-11-17 20:47 | PCM.HP.OB ---
- Problem List (1) Active labor at term Status: Acute (2) Depression affecting in third trimester, antepartum Status: Chronic Comment: h/o severe PPD, zoloft, counseled regarding risks of medication, counseling encouraged and patient planning to follow up again, has done PHP in past (3) Hypothyroidism Status: Chronic Qualifiers: Comment: labs q trimester (4) Status: Acute Qualifiers: Comment: genetic, carrier, and NTD screening declined. anatomy screen normal- fu views of spine were normal. (5) Short interval between pregnancies affecting , antepartum Status: Acute (6) Supervision of normal Status: Acute Qualifiers: Comment: PRR NAV 11/24/18 gender surprise PC Barry Gomez Ed History Date of Admission: 09/07/17 Final NAV: 11/23/18 Final NAV Source: [place] <20 weeks Gestational age: 39 Weeks and 1 Days History of this : This is a 28 year-old, G 3P2 at 39 weeks gestational age presents IAL. she had contractions all day and was admitted at 5 cm, made change to 6. she denies any vb lof admits good fm Medical History: Medical History (Last Reviewed 11/17/18 @ 10:22 by Cheryl Chan) Back pain M54.9 Chest pain R07.9 Fatigue R53.83 Hypothyroid E03.9 Incontinence R32 Post depression F53 Severe headache R51 Allergies No Known Allergies Allergy (Verified 11/17/18 10:22) Home Medications: Home Medications Vit No.130/Iron/Folic [ Vitamins] 1 tab PO DAILY 09/29/15 levothyroxine 25 mcg tablet 50 mcg PO DAILY tab 09/04/17 Thyroid,Pork [[place] Thyroid] 30 mg PO DAILY 09/07/17 Sertraline HCl [Zoloft] 200 mg PO QDAY 11/17/18 Vit D 500 iu 11/17/18 Smoking Status: Never smoker Alcohol: None Number of Fetus(es): 1 Heart Tracins moderate variability intermittent variables reactive cat II tracing toco q 3-5 History Past Pregnancies: Past Pregnancies 2 previous term uncomplicated Labs: Mom's Labs & Results 11/17/18 11/17/18 16:30 16:30 WBC 14.0 H RBC 4.10 L Hgb 12.2 Hct 36.9 L MCV 90.0 MCH 29.8 MCHC 33.1 RDW 14.3 RDW Differential 47.2 H Plt Count 232 MPV 9.5 Blood Type O POSITIVE Antibody Screen NEGATIVE Course Did the patient receive Yes care? Labs Blood Type: O RH: POSITIVE RPR/VDRL/Syphilis Nonreactive Rubella status Immune HbSAg Negative Date Done: 04/29/18 Chlamydia Negative Gonorrhea Negative HIV/AIDS Non-Reactive Group B Strep: Negative Current Obstetrical History Gestational Diabetes No Incompetent Cervix No Infertility No IUGR No Macrosomia No Hypertension/Pre-eclampsia No Placenta Previa/Abruption No PTL/PROM No Uterine anomaly No Oligohydramnios No Polyhydramnios No Multiple gestation No Past Medical History Asthma No Diabetes No Hypertension No Heart disease No Mitral valve prolapse No Neurologic/Seizure disorder/ No Migraines Kidney disease No Liver disease No Varicosities No Clotting disorders/Hx of DVT No Thyroid Dysfunction Yes: hypothyroid Other medical diseases No Psychiatric disorders Yes: current treatment for depression Major trauma No Abnormal PAP smear No Sleep apnea No Mammogram in the last 2 years No Social History Marital Status: Alleged father Clint Howe Hx Smoking No Smoking Status Never smoker Expected Infant Delivery Method: Spontaneous Vaginal Review of Systems Constitutional: Denies: Fever, Malaise Eyes: Denies: Blurred vision, Vision Change HEENT: Denies: Head Aches, Visual Changes Cardiovascular: Denies: Chest Pain, Palpitations Respiratory: Denies: Cough, Shortness of Breath, Wheezing Gastrointestinal: Reports: Abdominal Pain. Denies: Diarrhea, Nausea, Vomiting Genitourinary: Denies: Dysuria, Hematuria Musculoskeletal: Denies: Joint Pain, Muscle pain Skin: Denies: Lesions, Rash Neurological: Denies: Blurred vision, Focal weakness, Headaches Psychiatric: Denies: Anxiety, Depression Endocrine: Denies: Heat/ Cold Intolerance Hematologic/ Lymphatic: Denies: Easy Bruising, Easy Bleeding Physical Exam General: Alert, Cooperative, No apparent distress HEENT: Atraumatic, Normocephalic. Negative for: Thyromegaly, Lymphadenopathy Cardiovascular: Regular rate Lungs: Normal air movement Abdomen: Soft, Non Tender, Gravid Neurological: Deep Tendon Reflexes 2+/4 and Symmetrical, Neuro grossly intact. Negative for: Clonus [employer] FABRICATION: Normal external genitalia. Negative for: Vulvar lesions Estimated gestational size: Appropriate for gestational size Presentation: Cephalic Cervix Dilation (cm): 5 Assessment/Plan All Active Problems (Last Reviewed 11/17/18 @ 10:22 by Cheryl Chan) Active labor at term (Acute) Segmental and somatic dysfunction of pelvic region (Acute) Segmental and somatic dysfunction of sacral region (Acute) Segmental and somatic dysfunction of lumbar region (Acute) Segmental and somatic dysfunction of thoracic region (Acute) (Acute) Short interval between pregnancies affecting , antepartum (Acute) Supervision of normal (Acute) Decreased movements in third trimester (Resolved) Gastroenteritis (Resolved) Influenza (Resolved) Urinary frequency (Resolved) This is a 28 year-old, , at 39 weeks gestational age presents IAL Patient presents IAL, plan expectant management for , pitocin/AROM PRN if needed. Pain management: epi if desired. GBS negative. Management of any complications: h/o severe PPD- has received support and therapy, medications. stable I have reviewed the [facility] and made any clinically relevant updates.
--- NOTE | 2018-11-17 20:50 | HP.PCM_ITS ---
- Problem List (1) Active labor at term Status: Acute (2) Depression affecting in third trimester, antepartum Status: Chronic Comment: h/o severe PPD, zoloft, counseled regarding risks of medication, counseling encouraged and patient planning to follow up again, has done PHP in past (3) Hypothyroidism Status: Chronic Qualifiers: Comment: labs q trimester (4) Status: Acute Qualifiers: Comment: genetic, carrier, and NTD screening declined. anatomy screen normal- fu views of spine were normal. (5) Short interval between pregnancies affecting , antepartum Status: Acute (6) Supervision of normal Status: Acute Qualifiers: Comment: PRR NAV 11/24/18 gender surprise PC Barry Gomez Ed History Date of Admission: 09/07/17 Final NAV: 11/23/18 Final NAV Source: [place] <20 weeks Gestational age: 39 Weeks and 1 Days History of this : This is a 28 year-old, G 3P2 at 39 weeks gestational age presents IAL. she had contractions all day and was admitted at 5 cm, made change to 6. she denies any vb lof admits good fm Medical History: Medical History (Last Reviewed 11/17/18 @ 10:22 by Cheryl Chan) Back pain M54.9 Chest pain R07.9 Fatigue R53.83 Hypothyroid E03.9 Incontinence R32 Post depression F53 Severe headache R51 Allergies No Known Allergies Allergy (Verified 11/17/18 10:22) Home Medications: Home Medications Vit No.130/Iron/Folic [ Vitamins] 1 tab PO DAILY 09/29/15 levothyroxine 25 mcg tablet 50 mcg PO DAILY tab 09/04/17 Thyroid,Pork [[place] Thyroid] 30 mg PO DAILY 09/07/17 Sertraline HCl [Zoloft] 200 mg PO QDAY 11/17/18 Vit D 500 iu 11/17/18 Smoking Status: Never smoker Alcohol: None Number of Fetus(es): 1 Heart Tracins moderate variability intermittent variables reactive cat II tracing toco q 3-5 History Past Pregnancies: Past Pregnancies 2 previous term uncomplicated Labs: Mom's Labs & Results 11/17/18 11/17/18 16:30 16:30 WBC 14.0 H RBC 4.10 L Hgb 12.2 Hct 36.9 L MCV 90.0 MCH 29.8 MCHC 33.1 RDW 14.3 RDW Differential 47.2 H Plt Count 232 MPV 9.5 Blood Type O POSITIVE Antibody Screen NEGATIVE Course Did the patient receive Yes care? Labs Blood Type: O RH: POSITIVE RPR/VDRL/Syphilis Nonreactive Rubella status Immune HbSAg Negative Date Done: 04/29/18 Chlamydia Negative Gonorrhea Negative HIV/AIDS Non-Reactive Group B Strep: Negative Current Obstetrical History Gestational Diabetes No Incompetent Cervix No Infertility No IUGR No Macrosomia No Hypertension/Pre-eclampsia No Placenta Previa/Abruption No PTL/PROM No Uterine anomaly No Oligohydramnios No Polyhydramnios No Multiple gestation No Past Medical History Asthma No Diabetes No Hypertension No Heart disease No Mitral valve prolapse No Neurologic/Seizure disorder/ No Migraines Kidney disease No Liver disease No Varicosities No Clotting disorders/Hx of DVT No Thyroid Dysfunction Yes: hypothyroid Other medical diseases No Psychiatric disorders Yes: current treatment for depression Major trauma No Abnormal PAP smear No Sleep apnea No Mammogram in the last 2 years No Social History Marital Status: Alleged father Clint Howe Hx Smoking No Smoking Status Never smoker Expected Infant Delivery Method: Spontaneous Vaginal Review of Systems Constitutional: Denies: Fever, Malaise Eyes: Denies: Blurred vision, Vision Change HEENT: Denies: Head Aches, Visual Changes Cardiovascular: Denies: Chest Pain, Palpitations Respiratory: Denies: Cough, Shortness of Breath, Wheezing Gastrointestinal: Reports: Abdominal Pain. Denies: Diarrhea, Nausea, Vomiting Genitourinary: Denies: Dysuria, Hematuria Musculoskeletal: Denies: Joint Pain, Muscle pain Skin: Denies: Lesions, Rash Neurological: Denies: Blurred vision, Focal weakness, Headaches Psychiatric: Denies: Anxiety, Depression Endocrine: Denies: Heat/ Cold Intolerance Hematologic/ Lymphatic: Denies: Easy Bruising, Easy Bleeding Physical Exam General: Alert, Cooperative, No apparent distress HEENT: Atraumatic, Normocephalic. Negative for: Thyromegaly, Lymphadenopathy Cardiovascular: Regular rate Lungs: Normal air movement Abdomen: Soft, Non Tender, Gravid Neurological: Deep Tendon Reflexes 2+/4 and Symmetrical, Neuro grossly intact. Negative for: Clonus [employer]: Normal external genitalia. Negative for: Vulvar lesions Estimated gestational size: Appropriate for gestational size Presentation: Cephalic Cervix Dilation (cm): 5 Assessment/Plan All Active Problems (Last Reviewed 11/17/18 @ 10:22 by Cheryl Chan) Active labor at term (Acute) Segmental and somatic dysfunction of pelvic region (Acute) Segmental and somatic dysfunction of sacral region (Acute) Segmental and somatic dysfunction of lumbar region (Acute) Segmental and somatic dysfunction of thoracic region (Acute) (Acute) Short interval between pregnancies affecting , antepartum (Acute) Supervision of normal (Acute) Decreased movements in third trimester (Resolved) Gastroenteritis (Resolved) Influenza (Resolved) Urinary frequency (Resolved) This is a 28 year-old, , at 39 weeks gestational age presents IAL Patient presents IAL, plan expectant management for , pitocin/AROM PRN if needed. Pain management: epi if desired. GBS negative. Management of any complications: h/o severe PPD- has received support and therapy, medications. stable I have reviewed the [facility] and made any clinically relevant updates.
--- NOTE | 2018-11-17 20:50 | PCM.OB.VAG ---
- Problem List (1) Active labor at term Status: Acute (2) Depression affecting in third trimester, antepartum Status: Chronic Comment: h/o severe PPD, zoloft, counseled regarding risks of medication, counseling encouraged and patient planning to follow up again, has done PHP in past (3) Hypothyroidism Status: Chronic Qualifiers: Comment: labs q trimester (4) Status: Acute Qualifiers: Comment: genetic, carrier, and NTD screening declined. anatomy screen normal- fu views of spine were normal. (5) Short interval between pregnancies affecting , antepartum Status: Acute (6) Supervision of normal Status: Acute Qualifiers: Comment: PRR NAV 11/24/18 gender surprise PC Barry Gomez Ed Vaginal Delivery Maternal Presentation: Active Labor ial 39 weeks Amniotic Membrane Rupture Type: Artificial Amniotic Fluid Description: Clear Final NAV: 11/23/18 Gestational age: 39 Weeks and 1 Days Date of Procedure: 11/17/18 Pre-Operative Diagnosis: ial Post-Operative Diagnosis: ial Surgery/ Procedure Performed: Spontaneous Vaginal Delivery Type of Anesthesia: Epidural Description of Procedure: Patient began pushing on hands and knees and delivered the head however it was difficult to deliver the shoulders due to the patient's position and therefore she was flipped onto her back and her knees brought back and then the anterior and posterior shoulders were delivered the right shoulder first and then the left and the was placed on maternal abdomen. No lacerations were noted. Placenta delivered intact 3 vessel cord immediately thereafter. Presentation: RIVERA Placental Delivery Description: Spontaneous Placenta Disposition: [facility] Cord Vessel Description: 3 Vessels Cord Entanglement: None Estimated Blood Loss: 250 Infant A gender: Male Episiotomy Description: None Laceration: None Medications given after delivery: IV Pitocin Complications: None
[2018-11-17] MEDS: Oxytocin 30 units/NS 500 ml 30 UNITS/500 ML IV.SOLN 167 UNITS IV (21:05)
[2018-11-17] MEDS: 0.9% Saline Lock 10 ML Syringe IV (22:12)
[2018-11-18 00:30] VITALS: BP 121/63; PULSE 99; RESP 16; TEMP 36.6
[2018-11-18] MEDS: Sertraline 100 MG Tablet 200 MG PO ×2 (01:28→21:24)
[2018-11-18] MEDS: DiphenhydrAMINE 25 MG Capsule 50 MG PO (01:28)
[2018-11-18 03:30] VITALS: BP 109/61; PULSE 89; RESP 18; TEMP 36.5
[2018-11-18] MEDS: Naproxen 250 MG Tablet PO ×2 (04:36→12:12)
[2018-11-18] MEDS: Levothyroxine 50 MCG Tablet PO (06:53)
--- NOTE | 2018-11-18 07:44 | PCM.PN.OB ---
Patient Problems: Active and Suspected Problems (Last Reviewed 11/17/18 @ 10:22 by Cheryl Chan) Active labor at term (Acute) Subjective: Doing well. Urinating without difficulty. No CP, SOB - Physical Exam General: Alert, Oriented x3 Abdomen: Soft, Non Tender, - - FF below U Vital Signs Temp Pulse Resp BP 97.7 F L 89 18 109/61 11/18/18 03:30 11/18/18 03:30 11/18/18 03:30 11/18/18 03:30 Oxygen Delivery Method Room Air Weight: 228 lb 13.437 oz Body Mass Index (BMI) 39.2 Intake and Output for Last 24 Hours 11/16/18 11/17/18 11/18/18 23:59 23:59 23:59 Intake Total 1386 / 1386 Output Total 550 / 550 Balance 836 / 836 Laboratory Tests Past 24 Hrs 11/17/18 11/17/18 16:30 16:30 WBC 14.0 H RBC 4.10 L Hgb 12.2 Hct 36.9 L MCV 90.0 MCH 29.8 MCHC 33.1 RDW 14.3 RDW Differential 47.2 H Plt Count 232 MPV 9.5 Blood Type O POSITIVE Antibody Screen NEGATIVE Medical Necessity - Tobacco Use Smoking Status: Never smoker Assessment/Plan All Active Problems (Last Reviewed 11/17/18 @ 10:22 by Cheryl Chan) Active labor at term (Acute) Segmental and somatic dysfunction of pelvic region (Acute) Segmental and somatic dysfunction of sacral region (Acute) Segmental and somatic dysfunction of lumbar region (Acute) Segmental and somatic dysfunction of thoracic region (Acute) (Acute) Short interval between pregnancies affecting , antepartum (Acute) Supervision of normal (Acute) Decreased movements in third trimester (Resolved) Gastroenteritis (Resolved) Influenza (Resolved) Urinary frequency (Resolved) PPD#1: Routine care. .
[2018-11-18 08:16] VITALS: BP 103/68; PULSE 86; RESP 18; TEMP 36.6; O2SAT 96
[2018-11-18 12:03] VITALS: BP 107/61; PULSE 90; RESP 18; TEMP 37.1; O2SAT 96
[2018-11-18 16:45] VITALS: BP 112/56; PULSE 89; RESP 18; TEMP 36.8; O2SAT 96
[2018-11-18] MEDS: Acetaminophen 500 MG Tablet 1000 MG PO (17:24)
[2018-11-18 21:07] VITALS: BP 113/69; PULSE 79; RESP 16; TEMP 36.7; O2SAT 97
[2018-11-19] MEDS: Naproxen 250 MG Tablet PO (00:40)
[2018-11-19 01:58] VITALS: BP 113/51; PULSE 94; RESP 15; TEMP 36.7; O2SAT 98
[2018-11-19] MEDS: Levothyroxine 50 MCG Tablet PO (05:31)
--- NOTE | 2018-11-19 07:29 | PCM.PN.OB ---
Patient Problems: Active and Suspected Problems (Last Reviewed 11/17/18 @ 10:22 by Cheryl Chan) Active labor at term (Acute) Subjective: doing well no complaints pain controlled no CP SOB N V ambulating well tolerating po lochia moderate, going well - Physical Exam General: Alert, Oriented x3 Vital Signs Temp Pulse Resp BP Pulse Ox 98.0 F 94 15 113/51 L 98 11/19/18 01:58 11/19/18 01:58 11/19/18 01:58 11/19/18 01:58 11/19/18 01:58 Oxygen Delivery Method Room Air Weight: 228 lb 13.437 oz Body Mass Index (BMI) 39.2 Intake and Output for Last 24 Hours 11/17/18 11/18/18 11/19/18 23:59 23:59 23:59 Intake Total 1386 / 1386 Output Total 550 / 550 Balance 836 / 836 Medical Necessity - Tobacco Use Smoking Status: Never smoker Assessment/Plan All Active Problems (Last Reviewed 11/17/18 @ 10:22 by Cheryl Chan) Active labor at term (Acute) Segmental and somatic dysfunction of pelvic region (Acute) Segmental and somatic dysfunction of sacral region (Acute) Segmental and somatic dysfunction of lumbar region (Acute) Segmental and somatic dysfunction of thoracic region (Acute) (Acute) Short interval between pregnancies affecting , antepartum (Acute) Supervision of normal (Acute) Decreased movements in third trimester (Resolved) Gastroenteritis (Resolved) Influenza (Resolved) Urinary frequency (Resolved) s/p PPD # 2 1. routine post delivery care 2. breast feeding- support given 3. rh positive 4. rubella immune dc home
--- NOTE | 2018-11-19 07:39 | DCINST_ITS ---
Discharge Diet: No Restrictions Discharge Activity: Return to Normal Activity, May not drive while taking narcotic pain medications., May Shower May resume sexual activity in: 4-6 weeks Call your doctor if your incision/area has: Continuous Slow Oozing, Sudden Increased Bleeding, Increased Pain/ Swelling, Increased Redness, Foul Smelling Discharge Additional Instructions: If you experience any of the following, contact your healthcare provider. * Bleeding that soaks a pad every hour for 2 hours * Fever 100.4 or higher * Unrelieved incision or abdominal pain * Swelling, redness, discharge or bleeding from your incision or episiotomy site * Your incision begins to separate * Problems urinating (including inability to urinate or burning while urinating). * Visual changes * Severe headache * Flu-like symptoms * Pain or redness in one of both of your breasts * Pain, warmth, tenderness or swelling in your legs, especially the calf area * Frequent nausea and vomiting * Symptoms of depression or anxiety If you experience any of the following, call 911 or go to the nearest Emergency Room. * Chest pain * Problems breathing * Seizure activity * Partial or complete paralysis of a body part, slurred speech, weakness or drooping of the face, or a sudden inability to walk or hold your balance Allergies/Adverse Reactions: Allergies No Known Allergies Allergy (Verified 11/17/18 10:22) Medications to take at Discharge Vit No.130/Iron/Folic [ Vitamins] 1 tab PO DAILY 09/29/15 levothyroxine 25 mcg tablet 50 mcg PO DAILY tab 09/04/17 Thyroid,Pork [[place] Thyroid] 30 mg PO DAILY 09/07/17 Sertraline HCl [Zoloft] 200 mg PO QDAY 11/17/18 Vit D 500 iu 11/17/18 Please Follow Up With: Mary Lee MD - [phone] When: Call to make an appointment with your doctor in 6 weeks. If you had elevated Blood pressure or 4th degree laceration you will need to be seen in 2 weeks. Primary Care Physician: Care Physician,No Primary [Primary Care Provider] - Test Results: Test results from this visit will be discussed in further detail at your follow- up appointment, if applicable.
--- NOTE | 2018-11-19 07:39 | PCM.DCVAG ---
Discharge Diet: No Restrictions Discharge Activity: Return to Normal Activity, May not drive while taking narcotic pain medications., May Shower May resume sexual activity in: 4-6 weeks Call your doctor if your incision/area has: Continuous Slow Oozing, Sudden Increased Bleeding, Increased Pain/ Swelling, Increased Redness, Foul Smelling Discharge Additional Instructions: If you experience any of the following, contact your healthcare provider. Bleeding that soaks a pad every hour for 2 hours Fever 100.4 or higher Unrelieved incision or abdominal pain Swelling, redness, discharge or bleeding from your incision or episiotomy site Your incision begins to separate Problems urinating (including inability to urinate or burning while urinating). Visual changes Severe headache Flu-like symptoms Pain or redness in one of both of your breasts Pain, warmth, tenderness or swelling in your legs, especially the calf area Frequent nausea and vomiting Symptoms of depression or anxiety If you experience any of the following, call 911 or go to the nearest Emergency Room. Chest pain Problems breathing Seizure activity Partial or complete paralysis of a body part, slurred speech, weakness or drooping of the face, or a sudden inability to walk or hold your balance Allergies/Adverse Reactions: Allergies No Known Allergies Allergy (Verified 11/17/18 10:22) Medications to take at Discharge Vit No.130/Iron/Folic [ Vitamins] 1 tab PO DAILY 09/29/15 levothyroxine 25 mcg tablet 50 mcg PO DAILY tab 09/04/17 Thyroid,Pork [[place] Thyroid] 30 mg PO DAILY 09/07/17 Sertraline HCl [Zoloft] 200 mg PO QDAY 11/17/18 Vit D 500 iu 11/17/18 Please Follow Up With: Mary Lee MD - [phone] When: Call to make an appointment with your doctor in 6 weeks. If you had elevated Blood pressure or 4th degree laceration you will need to be seen in 2 weeks. Primary Care Physician: Care Physician,No Primary [Primary Care Provider] - Test Results: Test results from this visit will be discussed in further detail at your follow-up appointment, if applicable.
[2018-11-19 08:54] VITALS: BP 113/53; PULSE 88; RESP 18; TEMP 36.5; O2SAT 97
[2018-11-19] MEDS: Senna/Docusate Sodium 1 Tablet PO (09:03)
[2018-11-19 14:35] VITALS: BP 120/73; PULSE 87; RESP 18; TEMP 36.5; O2SAT 97
== END 2018-11-19 16:50 | disposition home or self-care (01) | DRG 807 ==
LOC: WPOUT 15:53
PROVIDERS: Admitting Provider Obstetrics & Gynecology; Referring Provider Obstetrics & Gynecology; Visit Provider Obstetrics & Gynecology
DX: O99.344 Other mental disorders complicating childbirth (principal); Z37.0 Single live birth; F32.9 Major depressive disorder, single episode, unspecified; Z3A.39 39 weeks gestation of pregnancy; F41.9 Anxiety disorder, unspecified; O99.284 Endocrine, nutritional and metabolic diseases complicating childbirth; E03.9 Hypothyroidism, unspecified
CPT/HCPCS: 59025; 59050; 85027; 86850; 86900; 99218; J7120; A4216; G0378

== ENCOUNTER → 2019-12-08 08:26 | Outpatient (CLI) | payer BC, SELFPAY ==
[2019-04-07 14:52] VITALS: BMI 36.7
--- NOTE | 2019-12-08 08:27 | US_ITS ---
STUDY: ULTRASOUND TRANSVAGINAL CLINICAL: Female, 29 years old. MENORRHAGIA-PATIENT HAS BEEN BLEEDING FOR OVER 30 DAYS TECHNIQUE: Transvaginal COMPARISON: None. FINDINGS: Normal uterine size measuring 7.8 x 4.8 x 2.4 cm in maximal craniocaudal dimension. There are no myometrial masses. Normal endometrial thickness measuring 7 mm. There are no endometrial masses, and there is no fluid in the endometrial cavity. There is an intrauterine device. Normal uterine cervix. Normal right ovary, measuring 3.2 x 3.5 x 2.2 cm. There are multiple follicles without a dominant cyst. Normal left ovary, measuring 2.5 x 2.6 x 1.0 cm. There are multiple follicles without a dominant cyst. There is no free fluid in the pelvis. Polycystic ovary disease: No. US/Pelvic (Non ) IMPRESSION: Normal transvaginal pelvic ultrasound with an intrauterine device. Electronically Signed: Fletcher Cavazos MD at 11:46 EDT Tel , Service support ,
--- NOTE | 2019-12-08 08:27 | US_ITS ---
STUDY: ULTRASOUND TRANSVAGINAL CLINICAL: Female, 29 years old. MENORRHAGIA-PATIENT HAS BEEN BLEEDING FOR OVER 30 DAYS TECHNIQUE: Transvaginal COMPARISON: None. FINDINGS: Normal uterine size measuring 7.8 x 4.8 x 2.4 cm in maximal craniocaudal dimension. There are no myometrial masses. Normal endometrial thickness measuring 7 mm. There are no endometrial masses, and there is no fluid in the endometrial cavity. There is an intrauterine device. Normal uterine cervix. Normal right ovary, measuring 3.2 x 3.5 x 2.2 cm. There are multiple follicles without a dominant cyst. Normal left ovary, measuring 2.5 x 2.6 x 1.0 cm. There are multiple follicles without a dominant cyst. There is no free fluid in the pelvis. Polycystic ovary disease: No. US/Transvaginal Non- IMPRESSION: Normal transvaginal pelvic ultrasound with an intrauterine device. Electronically Signed: Fletcher Cavazos MD at 11:46 EDT Tel , Service support ,
== END ==
PROVIDERS: Referring Provider Nurse Practitioner Women's Health; Visit Provider Nurse Practitioner Women's Health
DX: N92.0 Excessive and frequent menstruation with regular cycle (principal)
CPT/HCPCS: 76830; 76856

== ENCOUNTER → 2019-12-16 08:50 | Outpatient (CLI) | payer BC, SELFPAY ==
[2019-12-16 08:29] VITALS: BMI 39.6
[2019-12-16 09:35] LABS: Hemoglobin A1c 5.5 % (4.2-6.3)
[2019-12-16 09:50] LABS: Thyroid Stim Hormone (TSH) 1.22 uIU/mL (0.358-3.74)
[2019-12-17 20:07] LABS: DHEA Sulfate 64.3 ug/dL (84.8-378.0)
[2019-12-17 20:38] LABS: Testosterone Free 0.7 pg/mL (0.0-4.2)
== END ==
PROVIDERS: Referring Provider Nurse Practitioner Women's Health; Visit Provider Nurse Practitioner Women's Health
DX: E03.9 Hypothyroidism, unspecified (principal); E28.2 Polycystic ovarian syndrome
CPT/HCPCS: 36415; 82627; 83036; 84402; 84443; 82626

== ENCOUNTER → 2021-07-26 | Outpatient (CLI) | payer OTHER, SELFPAY ==
[2021-08-01 12:07] LABS: HPV APTIMA, High Risk Negative (Negative)
== END | disposition home or self-care (01) ==
LOC: LABSPEC 16:20
PROVIDERS: Referring Provider Physician Assistant; Visit Provider Physician Assistant
DX: Z12.4 Encounter for screening for malignant neoplasm of cervix (principal)
CPT/HCPCS: 87624; 88175; G0145

== ENCOUNTER → 2023-10-14 | Outpatient (CLI) | payer OTHER, SELFPAY | END | disposition home or self-care (01) | LOC: LABSPEC 10:36 | PROVIDERS: Referring Provider Nurse Practitioner Women's Health; Visit Provider Nurse Practitioner Women's Health | DX: N89.8 Other specified noninflammatory disorders of vagina (principal) | CPT/HCPCS: 87070; 87205 ==